=== PATIENT | female | born 1955 | race Caucasian/White ===

== ENCOUNTER 2017-11-29 08:07 | Inpatient (IN) ==
--- NOTE | 2017-11-29 08:59 | XR ---
EXAM DATE: 11/29/2017 8:23 AM EDT AGE/SEX: 62 years / Female INDICATIONS: . Cough and short of breath CLINICAL DATA: This is the patient's initial encounter. Patient reports that signs and symptoms have been present for 2 days and indicates a pain score of Nonresponsive. MEDICAL/SURGICAL HISTORY: Stroke. Craniotomy. PEG tube COMPARISON: POI, CT CHEST W/ CONTRAST, 03/10/2017. . FINDINGS: PA and lateral views of the chest demonstrate the lungs to be symmetrically aerated without evidence of mass, infiltrate or effusion. The cardiomediastinal contours are unremarkable. Osseous structures are intact. CONCLUSION: 1. No acute cardiopulmonary disease. Electronically signed by: Juan José Godinez MD 11/29/2017 8:58 AM EDT
[2017-11-29 09:16] LABS: Baso # (Auto) 0.1 th/mm3 (0.0-0.2); Baso % (Auto) 0.4 % (0.0-2.0); Eos # (Auto) 0.1 th/mm3 (0.0-0.4); Eos % (Auto) 0.6 % (0.0-4.0); Hematocrit 38.5 % (35.0-46.0); Hemoglobin 12.7 gm/dL (11.6-15.3); Lymph # (Auto) 1.7 th/mm3 (1.0-4.8); Lymph % (Auto) 11.7 % (9.0-44.0); Mean Corpuscular Hemoglobin 30.5 pg (27.0-34.0); Mean Corpuscular Volume 92.4 fL (80.0-100.0); Mean Platelet Volume 7.6 fL (7.0-11.0); Mono # (Auto) 0.9 th/mm3 (0.0-0.9); Mono % (Auto) 6.4 % (0.0-8.0); Neut # (Auto) 11.8 th/mm3 (1.8-7.7); Neut % (Auto) 80.9 % (16.0-70.0); Platelet Count 464 th/mm3 (150-450); Red Blood Count 4.16 mil/mm3 (4.00-5.30); Red Cell Distribution Width 13.8 % (11.6-17.2); White Blood Count 14.6 th/mm3 (4.0-11.0)
[2017-11-29 09:30] LABS: Alanine Aminotransferase 89 U/L (10-53)
[2017-11-29 09:34] LABS: Alkaline Phosphatase 141 U/L (45-117); Total Protein 7.9 g/dL (6.4-8.2)
[2017-11-29 09:54] LABS: Albumin 3.5 g/dL (3.4-5.0); Anion Gap 10 meq/L (5-15); Aspartate Aminotransferase 62 U/L (15-37); Blood Urea Nitrogen 10 mg/dL (7-18); Calcium 9.4 mg/dL (8.5-10.1); Carbon Dioxide 25.1 meq/L (21.0-32.0); Chloride 98 meq/L (98-107); Glomerular Filtration Rate Greater Than 89 mL/min (>89); Glucose,Random 81 mg/dL (74-106); Sodium 133 meq/L (136-145)
[2017-11-29 09:55] LABS: Potassium 4.6 meq/L (3.5-5.1)
[2017-11-29 10:18] LABS: Amorphous Sediment,Urine Rare /hpf; Bacteria,Urine Moderate /hpf; Bilirubin,Urine Negative (Negative); Clarity,Urine Turbid (Clear); Color,Urine Yellow (Yellw/Straw); Glucose,Urine (UA) Negative (Negative); Leukocyte Esterase,Urine Large (Negative); Nitrite,Urine Negative (Negative); Specific Gravity,Urine 1.009 (1.002-1.035); Squamous Epithelial Cell,Urine 36 /hpf (0-5); Transitional Epi Cells,Urine 5 /hpf
--- NOTE | 2017-11-29 10:56 | CT ---
EXAM DATE: 11/29/2017 10:19 AM EDT AGE/SEX: 62 years / Female INDICATIONS: Shortness of breath. CLINICAL DATA: This is the patient's initial encounter. Patient reports that signs and symptoms have been present for 1 day and indicates a pain score of Nonresponsive. MEDICAL/SURGICAL HISTORY: Lymphoma. Stroke. None. RADIATION DOSE: 6.87 CTDI (mGy) COMPARISON: POI, CT CHEST W/ CONTRAST, 03/10/2017. . TECHNIQUE: Volumetric scanning was performed using a multi-row detector CT scanner during bolus infu jeyson of 70 ml Omnipaque 350 (iohexol) nonionic water-soluble contrast as a single exam dose. The jessica a was post processed with a variety of visualization algorithms including full volume maximum intensi ty projection and sliding thin slab reformation. Using automated exposure control and adjustment of the mA and/or kV according to patient size, radiation dose was kept as low as reasonably achievable t o obtain optimal diagnostic quality images. DICOM format image data is available electronically for review and comparison. FINDINGS: Pulmonary Arteries: No filling defects are seen in the pulmonary arteries through the segmental vess els. The main pulmonary artery is normal in diameter. There is decreased opacification of the left p ulmonary veins in comparison to the right. This extends to the junction of the left atrium. Lung: Focal filling defect in the distal left mainstem bronchus with opacification of the central se gmental branches most prominently of the left lower lobe. This is new from prior examination. Minimal bibasilar groundglass opacities. Pleura: No effusion, significant pleural thickening or pneumothorax. Mediastinum: Heart is unremarkable without pericardial effusion. Left hilar prominence. No significa nt mediastinal adenopathy.. Osseous Structures: No abnormal focal lytic or blastic bony lesions. Other: Visulaized upper abdomen is unremarkable. CONCLUSION: 1. No CT evidence for pulmonary artery embolism. 2. Focal filling defect in the distal left mainstem bronchus with opacification of the central segme ntal branches most prominently of the left lower lobe. This is a new finding since previous exam. End obronchial mass should be excluded. 3. Decreased opacification of the left pulmonary veins extending to the junction of the left atrium. Although nonspecific, this may be related to reactive decreased perfusion of the left lung due to de creased aeration. 4. Minimal bibasilar atelectasis. Electronically signed by: Juan José Godinez MD 11/29/2017 10:55 AM EDT
[2017-11-29] MEDS ORDERED: Bisacodyl 10 MG Supp RECTAL PRN (12:09)
[2017-11-29] MEDS ORDERED: Acetaminophen 325 MG Tablet PO PRN (12:10)
--- NOTE | 2017-11-29 12:20 | P.HPIM ---
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 After her hospitalization the [place], patient was discharged to [facility] and was eventually weaned off of the ventilator which was decannulated on 08/2017. Patient presented to the ED today due to increased confusion and agitation per which began this morning. He reports that the patient was complaining of lower abdominal pain. He also mentions that the patient has had nasal congestion, shortness of breath, and a cough for the past 2 days. He has tried [id number] decongestant with no improvement. Of note, the also mentions that the patient was previously on trazodone which made her very lethargic and he started to wean her slowly off of it she has not had any trazodone for the past 4 days. Patient at baseline is minimally verbal but according to her she occasionally will speak a word to him. However he does state that she always understands what he asks her, and is able to answer with a nod or an occasional yes or no. Patient uses only the PEG for feeds due to dysphagia. She requires full assistance with all ADL's, at her baseline she usually is in bed or sitting up in the recliner for a few hours a day. Patient required mechanical ventilation after her IC hemorrhage and is s/ p trach by Dr. Pearson and PEG placement for dysphagia Patient denies recent illness , chills, fever, CP. Other PMHx, Hypertension on lisinopril and metoprolol which her has held due to low blood pressures at home, and GERD. Former Smoker. No previous Hx of COPD, she does not require home O2. - Diagnosis (1) Altered mental status (2) Lung mass (3) Acute UTI (4) Hypoxia (5) H/O craniotomy (6) History of intracranial hemorrhage Review of Systems All other systems reviewed negative except as stated in HPI PMFSH - History History Provided By: Family Member (), Health Benefits Specialist / EMT - Medical History Medical History: Medical History (Last Reviewed 10/22/18 @ 13:46 by Shari Lyon MD) Bone flap displacement Lymphoma CVA (cerebrovascular accident) - Tobacco History Tobacco Use In Past 30 Days: No Smoking Status: Current every day smoker Tobacco Type: Cigarettes - Alcohol History How Often Do You Have a Drink Containing Alcohol: Never - Substance Use History Substance History: No History of Abuse - Travel History Recent Travel Out of the Country Within the Last 8 Weeks: No - Immunization History Tetanus Immunization: Unsure Medications and Allergies Active Medications: Active Medications Acetaminophen (Tylenol) 650 mg PO Q4H PRN PRN Reason: Temp > 100.4 Al Hydroxide/Mg Hydroxide (Milk Of Magnesia Liq) 30 ml PO Q12H PRN PRN Reason: Mild Constipation Bisacodyl (Dulcolax Supp) 10 mg RECTAL DAILY PRN PRN Reason: SEVERE CONSITIPATION Ceftriaxone Sodium 1,000 mg/ (Sodium Chloride) 100 mls @ 200 mls/hr IV.SIG Q24H JUANITA Sodium Chloride (Ns Inj) 1,000 mls @ 125 mls/hr IV.CONT .Q8H JUANITA Lactulose (Lactulose Liq) 30 ml PO DAILY PRN PRN Reason: SEVERE CONSITIPATION Ondansetron HCl (Zofran Inj) 4 mg IV.PUSH Q6H PRN PRN Reason: NAUSEA OR VOMITING Senna/Docusate Sodium (Maral-Colace) 1 tab PO BID JUANITA Sennosides (Senokot) 17.2 mg PO Q12H PRN PRN Reason: Moderate Constipation Sodium Chloride (Ns Flush) 2 ml IV.FLUSH UNSCH PRN PRN Reason: FLUSH AFTER USING IV ACCESS Last Admin: 11/29/17 11:15 Dose: 2 ml Allergies Allergy/AdvReac Type Severity Reaction Status Date / Time No Known Allergies Allergy Verified 11/29/17 12:39 Home Medications Medication Instructions Recorded Confirmed Type amantadine HCl 150 mg PO BID 11/29/17 11/29/17 History cyanocobalamin (vitamin B-12) 1,000 mcg PO DAILY 11/29/17 11/29/17 History famotidine 20 mg PO DAILY 11/29/17 11/29/17 History modafinil 100 mg PO DAILY 11/29/17 11/29/17 History Exam Vital signs: Vital Signs 11/29/17 08:24 11/29/17 08:29 11/29/17 09:43 Temperature 98.2 F Pulse Rate 77 84 Respiratory Rate 17 18 Blood Pressure 117/88 128/75 Pulse Oximetry 94 L 95 94 L 11/29/17 12:00 Temperature Pulse Rate 84 Respiratory Rate 18 Blood Pressure 113/58 L Pulse Oximetry Intake & Output 11/28/17 11/29/17 11/29/17 18:59 06:59 18:59 Intake Total 100 / 100 Balance 100 / 100 Weight 54.431 kg Intake: IV 100 / 100 Rocephin Inj 1,000 MG In NS Inj 100 / 100 100 ML @ 200 mls/hr IV.SIG ONCE ONE Rx#:[id number] Narrative: GENERAL: Thin female, in no acute distress, lying comfortably in bed with nasal cannula in place SKIN: Warm and dry. HEAD: Normocephalic. Well-healed craniotomy scar on R scalp. EYES: No scleral icterus. No injection or drainage. NECK: Supple, trachea midline. No JVD or lymphadenopathy. CARDIOVASCULAR: Regular rate and rhythm without murmurs, gallops, or rubs. RESPIRATORY: Breath sounds equal bilaterally. No accessory muscle use. GASTROINTESTINAL: Abdomen soft, non-tender, nondistended. PEG in place with no drainage or erythema. MUSCULOSKELETAL: No cyanosis, or edema. BACK: Nontender without obvious deformity. No CVA tenderness. NEURO: AAO x1, right arm contracted, bilateral upper extremity motor system 3/5 , bilateral lower extremity motor system 3/5, right foot drop noted. Patient follows command and does grunt/attempts to verbalize but is difficult to understand. Results - Labs CBC & Chem 7: 11/29/17 08:52 11/29/17 08:52 Labs: Short CBC 11/29/17 Range/Units 08:52 WBC 14.6 H (4.0-11.0) th/mm3 Hgb 12.7 (11.6-15.3) gm/dL Hct 38.5 (35.0-46.0) % Plt Count 464 H (150-450) th/mm3 BMP 11/29/17 08:52 Sodium 133 L Potassium 4.6 Chloride 98 Carbon Dioxide 25.1 BUN 10 Creatinine 0.41 L Calcium 9.4 Cardiac Enzymes 11/29/17 Range/Units 08:52 Troponin I Less than 0.02 L (0.02-0.05) ng/mL Liver Function 11/29/17 Range/Units 08:52 Total Bilirubin 0.4 (0.2-1.0) mg/dL AST 62 H (15-37) U/L ALT 89 H (10-53) U/L Alkaline Phosphatase 141 H (45-117) U/L Albumin 3.5 (3.4-5.0) g/dL Urine 11/29/17 Range/Units 09:40 Urine Color Yellow (Yellw/Straw) Urine Clarity Turbid H (Clear) Urine pH 6.0 (5.0-8.5) Ur Specific [place] 1.009 (1.002-1.035) Urine Protein Negative (Neg-Trace) mg/dL Urine Glucose (UA) Negative (Negative) mg/dL - Imaging Impressions Chest X-Ray 11/29/17 08:23 CONCLUSION: 1. No acute cardiopulmonary disease. Chest CTA 11/29/17 10:08 CONCLUSION: 1. No CT evidence for pulmonary artery embolism. 2. Focal filling defect in the distal left mainstem bronchus with opacification of the central segmental branches most prominently of the left lower lobe. This is a new finding since previous exam. Endobronchial mass should be excluded. 3. Decreased opacification of the left pulmonary veins extending to the junction of the left atrium. Although nonspecific, this may be related to reactive decreased perfusion of the left lung due to decreased aeration. 4. Minimal bibasilar atelectasis. Caprini VTE Risk Assessment Caprini VTE Risk Assessment: Moderate/High Risk (score >= 2) Caprini Risk Assessment Model: Point Value = 1 Point Value = 2 Point Value = 3 Point Value = 5 Age 41-60 Minor surgery BMI > 25 kg/m2 Swollen legs Varicose veins or History of unexplained or recurrent spontaneous Oral contraceptives or hormone replacement Sepsis (< 1 month) Serious lung disease, including pneumonia (< 1 month) Abnormal pulmonary function Acute myocardial infarction Congestive heart failure (< 1 month) History of inflammatory bowel disease Medical patient at bed rest Age 61-74 Arthroscopic surgery Major open surgery (> 45 min) Laparoscopic surgery (> 45 min) Malignancy Confined to bed (> 72 hours) Immobilizing plaster cast Central venous access Age >= 75 History of VTE Family history of VTE Factor V Leiden Prothrombin [id number] Lupus anticoagulant Anticardiolipin antibodies Elevated serum homocysteine Heparin-induced thrombocytopenia Other congenital or acquired thrombophilia Stroke (< 1 month) Elective arthroplasty Hip, pelvis, or leg fracture Acute spinal cord injury (< 1 month) Prophylaxis Regimen: Total Risk Factor Score Risk Level Prophylaxis Regimen 0-1 Low Early ambulation 2 Moderate Order ONE of the following: *Sequential Compression Device (SCD) *Heparin 5000 units SQ BID 3-4 Higher Order ONE of the following medications: *Heparin 5000 units SQ TID *Enoxaparin/Lovenox 40 mg SQ daily (WT < 150 kg, CrCl > 30 mL/min) *Enoxaparin/Lovenox 30 mg SQ daily (WT < 150 kg, CrCl > 10-29 mL/min) *Enoxaparin/Lovenox 30 mg SQ BID (WT < 150 kg, CrCl > 30 mL/min) AND/OR *Sequential Compression Device (SCD) 5 or more Highest Order ONE of the following medications: *Heparin 5000 units SQ TID (Preferred with Epidurals) *Enoxaparin/Lovenox 40 mg SQ daily (WT < 150 kg, CrCl > 30 mL/min) *Enoxaparin/Lovenox 30 mg SQ daily (WT < 150 kg, CrCl > 10-29 mL/min) *Enoxaparin/Lovenox 30 mg SQ BID (WT < 150 kg, CrCl > 30 mL/min) AND *Sequential Compression Device (SCD) Assessment and Plan - Assessment (1) Altered mental status Code(s): R41.82 - Altered mental status, unspecified Status: Acute (2) Lung mass Code(s): R91.8 - Other nonspecific abnormal finding of lung field Status: Acute (3) Acute UTI Code(s): N39.0 - Urinary tract infection, site not specified Status: Acute (4) Hypoxia Code(s): R09.02 - Hypoxemia Status: Acute (5) H/O craniotomy Code(s): Z98.890 - Other specified postprocedural states Status: Chronic (6) History of intracranial hemorrhage Code(s): Z86.79 - Personal history of other diseases of the circulatory system Status: Chronic - Plan This is a 62-year-old CF with 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 Patient is being admitted for IP mgmt of AMS with agitation, UTI, and Hypoxia requiring NC. Per CT Chest, focal filling defect in the distal left mainstem bronchus with opacification of the central segmental branches most prominently of the left lower lobe, endobronchial mass should be excluded. Pulmonary has been consulted to assist with management, HD #1 1. Hypoxia/?Pneumonia versus Endobronchial Mass Patient on 2L NC (not on home O2), goal of O2>92% Neg CXR, Neg Flu CT Chest with opacification of the central segmental branches most prominent in the left lower lung, cannot exclude endobronchial mass Pulmonology consulted and appreciate assistance with management Will place NPO at midnight for bronchoscopy in AM per Pulm recommendations Started on Ceftriaxone IV and Azithromycin IV Follow-up S. pneumo antigen and mycoplasma Incentive spirometer ordered to assist with bibasilar atelectasis 2. Leukocytosis Likely secondary to infection (UTI and possible pneumonia) F/U blood Cx Continue to monitor, F/U CRP 3. UTI UA + many WBC's, large LE, and +bacteria Started on Ceftriaxone IV Q24hrs Follow-up Urine Cx for sensitivities 4. Elevated LFT's Possible stress reaction secondary to infection Will continue to monitor Will avoid hepatotoxic meds Will obtain Hepatitis panel 5. AMS, due to UTI and possible PNA Per patient is closer to her baseline now since leaving ED He reports that he thinks that her weaning off of the trazodone and now being completely out of it for the last 4 days has caused her increased agitation and confusion We will not resume trazodone unless needed Patient's UTI and possible pneumonia also contributing Will continue to monitor Acetaminophen level negative on admission, Neg UDS, Neg Ammonia 6. Hx of Subdural Hematoma and intraparenchymal hemorrhage, status post decompressive craniotomy Patient is known to Dr. Campbell, per 's request neurosurgery has been consulted Appreciate assistance with management CT Head: Prior right-sided temporoparietal craniectomy. Mild diffuse ventriculomegaly slightly out of proportion to degree of atrophy. Clinical correlation for normal pressure hydrocephalus is recommended. Limited evaluation for acute hemorrhage due to recent contrast administration. However, there is no evidence for significant intra or extra-axial blood products. 7. Hx of PEG Will consult dietary to assist with managing tube feeds Per patient uses Osteolite at home, 300mls/4x daily 8. Hx of CVA Noted, residual right sided weakness Will consult PT to assist with care, patient was receiving PT at home Cont. home Baclofen, Amantadine, and Modafinil 9. Hx of Hypertension Blood pressure stable reports that he has not been giving her home meds of Lisinopril and Metoprolol due to low BP's Will resume if needed 10. GERD Cont. Famotidine 11. DVT PPX: SCD's 12. Dispo: cont. ABX, NPO at midnight for Bronchoscopy, appreciate neurology and neurosurgery assistance with management Code Status: full Discussed Condition With: Patient, RN,
--- NOTE | 2017-11-29 13:13 | ED ---
HPI General Chief complaint: Respiratory Symptoms Stated complaint: SOB Time Seen by Provider: 11/29/17 08:10 Source: patient and EMS Mode of arrival: EMS History of Present Illness HPI narrative: Patient is a 62-year-old female, past medical history significant for recent intracranial hemorrhage status post craniotomy and ischemic stroke, discharged from rehab approximately 2 weeks ago, who presents with complaint of productive cough over the last several days. Per EMS her has been giving her Robitussin without any relief. No fever. Patient denies chest pain, dyspnea, abdominal pain. Patient is a poor historian. The arrived much later and stated that she seems more fatigued than normal with intermittent confusion. Onset (ago): day(s) Location: chest Radiation: non-radiation Severity: moderate Pain Consistency: constant Relieving factors: none Exacerbating factors: none Associated symptoms: Reports cough Related Data Home Medications Medication Instructions Recorded Confirmed amantadine HCl 150 mg PO BID 11/29/17 11/29/17 cyanocobalamin (vitamin B-12) 1,000 mcg PO DAILY 11/29/17 11/29/17 famotidine 20 mg PO DAILY 11/29/17 11/29/17 modafinil 100 mg PO DAILY 11/29/17 11/29/17 Allergies Allergy/AdvReac Type Severity Reaction Status Date / Time No Known Allergies Allergy Verified 11/29/17 12:39 Review of Systems ROS: all other systems reviewed are negative [facility] Medical History Medical History Bone flap displacement (Acute) Lymphoma (Acute) CVA (cerebrovascular accident) (Acute) Social History Social History Substance History: No History of Abuse Smoking Status: Current every day smoker Tobacco Type: Cigarettes How Often Do You Have a Drink Containing Alcohol: Never Recent Out of Country Travel within the Last 8 Weeks: No Immunization History Tetanus Immunization: Unsure Exam Narrative Exam Narrative: GENERAL: Chronically ill-appearing 62-year-old female in no acute distress SKIN: Focused skin assessment warm/dry. No rashes. No decubitus ulcers. She has previous incision site on right temporal region that is without erythema or drainage. HEAD: Missing bone flap. EYES: Pupils equal and round. No scleral icterus. No injection or drainage. ENT: No nasal bleeding or discharge. Mucous membranes pink and moist. NECK: Trachea midline. No JVD. CARDIOVASCULAR: Regular rate and rhythm. No murmur appreciated. Intact and equal peripheral pulses. RESPIRATORY: No accessory muscle use. Clear to auscultation. Breath sounds equal bilaterally. GASTROINTESTINAL: Abdomen soft, non-tender, nondistended. Hepatic and splenic margins not palpable. MUSCULOSKELETAL: No obvious deformities. No clubbing. No cyanosis. No edema. NEUROLOGICAL: Awake and alert. No obvious cranial nerve deficits. Able to move all 4 extremities. normal speech. PSYCHIATRIC: Appropriate mood and affect; insight and judgment normal. Course Initial Documented Vital Signs Temperature 98.2 F 11/29/17 08:24 Pulse Rate 77 11/29/17 08:24 Respiratory Rate 17 11/29/17 08:24 Blood Pressure 117/88 11/29/17 08:24 Pulse Oximetry 94 L 11/29/17 08:24 Last Documented Vital Signs Temperature 98.2 F 11/29/17 08:24 Pulse Rate 84 11/29/17 12:00 Respiratory Rate 18 11/29/17 12:00 Blood Pressure 113/58 L 11/29/17 12:00 Pulse Oximetry 94 L 11/29/17 09:43 Medical Decision Making MDM Narrative Medical decision making narrative: Patient is a 8-year-old female who presents with complaint of cough over the last several days and after her arrived stated that she been slightly confused. She has not had any recent trauma. She does have a new oxygen requirement here without any history of COPD. Chest x-ray was unremarkable. CTA was then obtained which revealed what appears to be an endobronchial mass but no PE nor infiltrate. Labs and urine revealed a UTI for which she has been given Rocephin. She has been admitted for further evaluation and management. Medical Screen Exam Complete: Yes Emergency Medical Condition: Yes Differential Diagnosis Differential Diagnosis: Differential diagnosis includes but is not limited to pneumonia, urinary tract infection, electrolyte abnormality. Medical Records Medical records reviewed: Yes I reviewed the patient's medical records. Lab Data Lab results reviewed: Yes I reviewed the patient's lab results. Result diagrams: 11/29/17 08:52 11/29/17 08:52 Lab Results 11/29/17 11/29/17 11/29/17 Range/Units 08:52 08:52 08:52 WBC 14.6 H (4.0-11.0) th/mm3 RBC 4.16 (4.00-5.30) mil/mm3 Hgb 12.7 (11.6-15.3) gm/dL Hct 38.5 (35.0-46.0) % MCV 92.4 (80.0-100.0) fL MCH 30.5 (27.0-34.0) pg MCHC 33.0 (32.0-36.0) % RDW 13.8 (11.6-17.2) % Plt Count 464 H (150-450) th/mm3 MPV 7.6 (7.0-11.0) fL Neut % (Auto) 80.9 H (16.0-70.0) % Lymph % (Auto) 11.7 (9.0-44.0) % [place] % (Auto) 6.4 (0.0-8.0) % Eos % (Auto) 0.6 (0.0-4.0) % Baso % (Auto) 0.4 (0.0-2.0) % Neut # (Auto) 11.8 H (1.8-7.7) th/mm3 Lymph # (Auto) 1.7 (1.0-4.8) th/mm3 [place] # (Auto) 0.9 (0.0-0.9) th/mm3 Eos # (Auto) 0.1 (0.0-0.4) th/mm3 Baso # (Auto) 0.1 (0.0-0.2) th/mm3 WBC Differential . Differential Comment Auto diff final APTT (24.3-30.1) sec Sodium 133 L (136-145) meq/L Potassium 4.6 (3.5-5.1) meq/L Chloride 98 (98-107) meq/L Carbon Dioxide 25.1 (21.0-32.0) meq/L Anion Gap 10 (5-15) meq/L BUN 10 (7-18) mg/dL Creatinine 0.41 L (0.50-1.00) mg/dL Estimated GFR Greater than 89 (>89) mL/min Random Glucose 81 (74-106) mg/dL Calcium 9.4 (8.5-10.1) mg/dL Total Bilirubin 0.4 (0.2-1.0) mg/dL AST 62 H (15-37) U/L ALT 89 H (10-53) U/L Alkaline Phosphatase 141 H (45-117) U/L Ammonia (11-32) mcmol/L Troponin I Less than 0.02 L (0.02-0.05) ng/mL C-Reactive Protein (0.00-0.30) mg/dL B-Natriuretic Peptide 14 (0-100) pg/mL Total Protein 7.9 (6.4-8.2) g/dL Albumin 3.5 (3.4-5.0) g/dL Urine Color (Yellw/Straw) Urine Clarity (Clear) Urine pH (5.0-8.5) Ur Specific [place] (1.002-1.035) Urine Protein (Neg-Trace) mg/dL Urine Glucose (UA) (Negative) mg/dL Urine Ketones (Negative) mg/dL Urine Occult Blood (Negative) Urine Nitrate (Negative) Urine Bilirubin (Negative) Urine Urobilinogen (Less than 2) mg/dL Ur Leukocyte Esterase (Negative) Urine RBC (0-3) /hpf Urine WBC (0-5) /hpf Urine WBC Clumps (None) Ur Squamous Epith Cells (0-5) /hpf Ur Transition Epith Cell (None) /hpf Amorphous Sediment (None) /hpf Urine Bacteria (None) /hpf Urine Yeast (None) /hpf Ur Yeast w Hyphae (None) /hpf Micro UA Comment Ur Microscopic Review Urine Culture Comments Acetaminophen (10.0-30.0) mcg/mL 11/29/17 11/29/17 11/29/17 Range/Units 08:52 08:52 09:40 WBC (4.0-11.0) th/mm3 RBC (4.00-5.30) mil/mm3 Hgb (11.6-15.3) gm/dL Hct (35.0-46.0) % MCV (80.0-100.0) fL MCH (27.0-34.0) pg MCHC (32.0-36.0) % RDW (11.6-17.2) % Plt Count (150-450) th/mm3 MPV (7.0-11.0) fL Neut % (Auto) (16.0-70.0) % Lymph % (Auto) (9.0-44.0) % [place] % (Auto) (0.0-8.0) % Eos % (Auto) (0.0-4.0) % Baso % (Auto) (0.0-2.0) % Neut # (Auto) (1.8-7.7) th/mm3 Lymph # (Auto) (1.0-4.8) th/mm3 [place] # (Auto) (0.0-0.9) th/mm3 Eos # (Auto) (0.0-0.4) th/mm3 Baso # (Auto) (0.0-0.2) th/mm3 WBC Differential Differential Comment APTT (24.3-30.1) sec Sodium (136-145) meq/L Potassium (3.5-5.1) meq/L Chloride (98-107) meq/L Carbon Dioxide (21.0-32.0) meq/L Anion Gap (5-15) meq/L BUN (7-18) mg/dL Creatinine (0.50-1.00) mg/dL Estimated GFR (>89) mL/min Random Glucose (74-106) mg/dL Calcium (8.5-10.1) mg/dL Total Bilirubin (0.2-1.0) mg/dL AST (15-37) U/L ALT (10-53) U/L Alkaline Phosphatase (45-117) U/L Ammonia (11-32) mcmol/L Troponin I (0.02-0.05) ng/mL C-Reactive Protein 0.88 H (0.00-0.30) mg/dL B-Natriuretic Peptide (0-100) pg/mL Total Protein (6.4-8.2) g/dL Albumin (3.4-5.0) g/dL Urine Color Yellow (Yellw/Straw) Urine Clarity Turbid H (Clear) Urine pH 6.0 (5.0-8.5) Ur Specific [place] 1.009 (1.002-1.035) Urine Protein Negative (Neg-Trace) mg/dL Urine Glucose (UA) Negative (Negative) mg/dL Urine Ketones Negative (Negative) mg/dL Urine Occult Blood Small H (Negative) Urine Nitrate Negative (Negative) Urine Bilirubin Negative (Negative) Urine Urobilinogen Less than 2 (Less than 2) mg/dL Ur Leukocyte Esterase Large H (Negative) Urine RBC 47 H (0-3) /hpf Urine WBC (0-5) /hpf Urine WBC Clumps Many H (None) Ur Squamous Epith Cells 36 (0-5) /hpf Ur Transition Epith Cell 5 (None) /hpf Amorphous Sediment Rare H (None) /hpf Urine Bacteria Moderate H (None) /hpf Urine Yeast Many H (None) /hpf Ur Yeast w Hyphae Occasional H (None) /hpf Micro UA Comment Cath-culture ind Ur Microscopic Review Not Reportable Urine Culture Comments Cath-cult indicated Acetaminophen Less than 2.0 L (10.0-30.0) mcg/mL 11/29/17 11/29/17 Range/Units 12:20 12:20 WBC (4.0-11.0) th/mm3 RBC (4.00-5.30) mil/mm3 Hgb (11.6-15.3) gm/dL Hct (35.0-46.0) % MCV (80.0-100.0) fL MCH (27.0-34.0) pg MCHC (32.0-36.0) % RDW (11.6-17.2) % Plt Count (150-450) th/mm3 MPV (7.0-11.0) fL Neut % (Auto) (16.0-70.0) % Lymph % (Auto) (9.0-44.0) % [place] % (Auto) (0.0-8.0) % Eos % (Auto) (0.0-4.0) % Baso % (Auto) (0.0-2.0) % Neut # (Auto) (1.8-7.7) th/mm3 Lymph # (Auto) (1.0-4.8) th/mm3 [place] # (Auto) (0.0-0.9) th/mm3 Eos # (Auto) (0.0-0.4) th/mm3 Baso # (Auto) (0.0-0.2) th/mm3 WBC Differential Differential Comment APTT 25.0 (24.3-30.1) sec Sodium (136-145) meq/L Potassium (3.5-5.1) meq/L Chloride (98-107) meq/L Carbon Dioxide (21.0-32.0) meq/L Anion Gap (5-15) meq/L BUN (7-18) mg/dL Creatinine (0.50-1.00) mg/dL Estimated GFR (>89) mL/min Random Glucose (74-106) mg/dL Calcium (8.5-10.1) mg/dL Total Bilirubin (0.2-1.0) mg/dL AST (15-37) U/L ALT (10-53) U/L Alkaline Phosphatase (45-117) U/L Ammonia 19 (11-32) mcmol/L Troponin I (0.02-0.05) ng/mL C-Reactive Protein (0.00-0.30) mg/dL B-Natriuretic Peptide (0-100) pg/mL Total Protein (6.4-8.2) g/dL Albumin (3.4-5.0) g/dL Urine Color (Yellw/Straw) Urine Clarity (Clear) Urine pH (5.0-8.5) Ur Specific [place] (1.002-1.035) Urine Protein (Neg-Trace) mg/dL Urine Glucose (UA) (Negative) mg/dL Urine Ketones (Negative) mg/dL Urine Occult Blood (Negative) Urine Nitrate (Negative) Urine Bilirubin (Negative) Urine Urobilinogen (Less than 2) mg/dL Ur Leukocyte Esterase (Negative) Urine RBC (0-3) /hpf Urine WBC (0-5) /hpf Urine WBC Clumps (None) Ur Squamous Epith Cells (0-5) /hpf Ur Transition Epith Cell (None) /hpf Amorphous Sediment (None) /hpf Urine Bacteria (None) /hpf Urine Yeast (None) /hpf Ur Yeast w Hyphae (None) /hpf Micro UA Comment Ur Microscopic Review Urine Culture Comments Acetaminophen (10.0-30.0) mcg/mL Imaging Data Attestation: I personally reviewed and interpreted this imaging study as follows : Radiologist's impression: Head CT 11/29/17 00:00 CONCLUSION: 1. Prior right-sided temporoparietal craniectomy.. 2. Mild diffuse ventriculomegaly slightly out of proportion to degree of atrophy. Clinical correlation for normal pressure hydrocephalus is recommended. 3. Limited evaluation for acute hemorrhage due to recent contrast administration. However, there is no evidence for significant intra or extra- axial blood products. Chest X-Ray 11/29/17 08:23 CONCLUSION: 1. No acute cardiopulmonary disease. Chest CTA 11/29/17 10:08 CONCLUSION: 1. No CT evidence for pulmonary artery embolism. 2. Focal filling defect in the distal left mainstem bronchus with opacification of the central segmental branches most prominently of the left lower lobe. This is a new finding since previous exam. Endobronchial mass should be excluded. 3. Decreased opacification of the left pulmonary veins extending to the junction of the left atrium. Although nonspecific, this may be related to reactive decreased perfusion of the left lung due to decreased aeration. 4. Minimal bibasilar atelectasis. ECG Data EKG Prior to Arrival: No Attestation: I personally reviewed and interpreted this ECG as follows: (Sinus rhythm at a rate of [address] or T wave changes.) Discharge Plan Physicians Team ED Provider: Shari Lyon Primary Care Provider: UNKNOWN, Attending Provider: Maggie Quinn Other Providers: Karina Espinoza Rxs /Orders / Referrals /Forms Prescriptions: No Action amantadine HCl 50 mg/5 mL Solution 150 mg PO BID RF: 0 famotidine 20 mg Tablet 20 mg PO DAILY RF: 0 modafinil 100 mg Tablet 100 mg PO DAILY RF: 0 cyanocobalamin (vitamin B-12) 1,000 mcg/15 mL Liquid 1,000 mcg PO DAILY RF: 0 Discharge Interventions Interventions: ED Discharge Assessment Last Done: 11/29/17 12:59 Vital Signs Last Done: 11/29/17 12:00 Status ED Status: Left Department Discharge Information Discharge Date/Time: 11/29/17 13:00
--- NOTE | 2017-11-29 13:16 | CT ---
EXAM DATE: 11/29/2017 12:11 PM EDT AGE/SEX: 62 years / Female INDICATIONS: Altered mental status. CLINICAL DATA: This is the patient's initial encounter. Patient reports that signs and symptoms have been present for 1 day and indicates a pain score of Nonresponsive. MEDICAL/SURGICAL HISTORY: Cerebrovascular disease. Lymphoma. Bone flap displacement. None. RADIATION DOSE: 34.46 CTDI (mGy) COMPARISON: No prior exams available for comparison. TECHNIQUE: CT of the head without contrast. Using automated exposure control and adjustment of the mA and/or kV according to patient size, radiation dose was kept as low as reasonably achievable to ob tain optimal diagnostic quality images. DICOM format image data is available electronically for revi ew and comparison. FINDINGS: Cerebrum: Postsurgical features of prior right-sided temporoparietal craniectomy. Mild diffuse cereb ral atrophy. Mild diffuse ventriculomegaly slightly out of proportion to degree of atrophy. No midlin e shift. No gross acute hemorrhage or mass effect although evaluation is limited by recent contrast a dministration. Posterior Fossa: The cerebellum and brainstem are intact. The 4th ventricle is midline. The cerebe llopontine angle is unremarkable. Extracranial: The visualized portion of the orbits is intact. Skull: Right-sided temporoparietal craniectomy. CONCLUSION: 1. Prior right-sided temporoparietal craniectomy.. 2. Mild diffuse ventriculomegaly slightly out of proportion to degree of atrophy. Clinical correlati on for normal pressure hydrocephalus is recommended. 3. Limited evaluation for acute hemorrhage due to recent contrast administration. However, there is no evidence for significant intra or extra-axial blood products. Electronically signed by: Juan José Godinez MD 11/29/2017 1:15 PM EDT
[2017-11-29] MEDS: Sod Chloride 0.9% Inj 1,000 ML IV.CONT SCH ×2 (13:29→22:08)
[2017-11-29 14:00] LABS: Hepatitis A IgM Antibody Nonreactive (Nonreactive); Hepatitits B Surface Antigen Nonreactive (Nonreactive)
[2017-11-29] MEDS: Azithromycin Inj 500 MG in Sodium Chlor 0.9% Inj 250 ML IV.SIG SCH (14:17)
[2017-11-29 14:27] LABS: Amphetamine Screen,Urine Neg (Neg); Barbiturate Screen,Urine Neg (Neg); Cannabinoid Screen,Urine Neg (Neg); Cocaine Screen,Urine Neg (Neg); Opiate Screen,Urine Neg (Neg)
--- NOTE | 2017-11-29 14:28 | MB ---
cc: Karina Espinoza MD DATE: 11/29/2017 PULMONARY CONSULTATION HISTORY OF PRESENT ILLNESS: The patient is a 62-year-old female with a past medical history of squamous cell carcinoma of the mouth, lymphoma diagnosed in 2007 status post radiation treatment and chemotherapy, subdural hematoma with subfalcine herniation and intraparenchymal hemorrhage in August 2017, status post decompressive craniotomy. She had a long ICU course in September where she underwent IVC filter placement. In addition, the patient required mechanical ventilation and underwent a tracheostomy by Dr. Waters and a PEG tube placement. She was eventually discharged to [facility] where she was weaned off the ventilator and was decannulated in August. The patient still does not have a bone flap. She presented to [facility] ED with chest congestion, shortness of breath and a cough. The patient is minimally verbal and most of the history was obtained from reviewing medical records and with my discussion with the patient's . She is afebrile and is currently on 2 liter oxygen with a saturation of 98% and a blood pressure 130/58. There is no history of any fever, chills or night sweats. Also no history of chest pain, orthopnea, PND, or edema of lower extremities. The patient had a CT of the chest which showed no evidence of any pulmonary embolism; however, it showed a focal filling defect in the distal left main stem bronchus with opacification of the central segmental branches, most prominently of the left lower lobe. Also, there is decreased opacification of the left pulmonary veins extending to the junction of the left atrium and minimal bibasilar atelectasis. There is no history of any nausea, vomiting or abdominal pain. Pulmonary Medicine was consulted regarding abnormal CT chest. PAST MEDICAL HISTORY: Significant for subdural hematoma with subfalcine herniation and intraparenchymal hemorrhage in August. Status post decompressive craniotomy, hypertension, CVA, squamous cell carcinoma of the mouth, and lymphoma diagnosed in 2007, dysphagia status post PEG tube placement, depression, history of multiple falls, history of gastric ulcer. PAST SURGICAL HISTORY: 1. Status post decompressive craniotomy 2. IVC filter placement in 09/2017. 3. Previous tracheostomy and PEG tube placement in 09/2017. SOCIAL HISTORY: The patient quit smoking in August and used to smoke 8-10 cigarettes daily for 30+ years. In addition, she has history of ETOH use. ALLERGIES: NO KNOWN DRUG ALLERGIES. FAMILY HISTORY: Noncontributory to history of present illness. MEDICATIONS AT HOME: Include: 1. Pepcid. 2. Modafinil. 3. Vitamin B12. REVIEW OF SYSTEMS: As per HPI. Review of systems limited as the patient is nonverbal. PHYSICAL EXAMINATION: GENERAL: A 62-year-old female lying in bed, in no acute distress. VITAL SIGNS: Temperature 98.2, pulse of 87, blood pressure 130/58, saturation 98% on 2 liters. HEENT: Atraumatic, normocephalic. Pupils equal, round, reactive to light and accommodation. Extraocular muscles intact. Conjunctivae pink. Nonicteric sclerae. Oral mucosa within normal. No bone flap present in the parietal area. NECK: Supple. No JVD, adenopathy or thyromegaly. Trachea in the midline. CARDIOVASCULAR: Regular rate and rhythm. Normal S1, S2. No murmurs or gallops noted. PULMONARY: Bilateral equal air entry. No rales or wheezing. ABDOMEN: Soft, nontender. No distention. Positive bowel sounds. PEG tube in place. EXTREMITIES: No cyanosis, clubbing or edema. NEUROLOGIC: Minimally verbal. LABORATORY DATA: WBC 14.6, hemoglobin 12.7, hematocrit 38, platelet count 464. Sodium 133, potassium 4.6, chloride 98, CO2 25, BUN 10, creatinine 0.41. AST 62, ALT 89, alkaline phosphatase 141, total bilirubin 0.4, ammonia level 19. C-reactive protein 0.88. RADIOGRAPHIC STUDIES: CTA of the chest showed no evidence of pulmonary embolism; however, showed focal filling defect in the distal left main stem bronchus and decreased opacification, left upper pulmonary vein. IMPRESSION: 1. Respiratory insufficiency. 2. Filling defect in the left main stem bronchus. DIFFERENTIAL DIAGNOSES: 1. Endobronchial mass versus mucus secretions. 2. Bibasilar atelectasis. 3. Leukocytosis. 4. Elevated liver function tests. 5. Urinary tract infection. 6. History of subdural hematoma and intraparenchymal hemorrhage, status post decompressive craniotomy. 7. Previous inferior vena cava filter placement in August. 8. Chronic respiratory failure, status post tracheostomy which was decannulated in October. 9. Previous percutaneous endoscopic gastrostomy placement. 11. History of cerebrovascular accident. 12. Hypertension. RECOMMENDATIONS: 1. Continue with oxygen and maintain sats above 92%. 2. Placed on bronchodilators in the form of DuoNeb every 4 hours plus every 2 hours p.r.n. for shortness of breath. 3. Discussed CT chest findings with the patient's and advised to proceed with fiberoptic bronchoscopy with a possible biopsy. Need to rule out endobronchial lesion versus mucus plugs. He is agreeable. We will schedule patient for bronchoscopy tomorrow. 4. Place on broad spectrum antibiotics in the form of Rocephin and Zithromax and monitor for signs of infection, which include fever and WBC. 5. Followup on blood cultures. 6. Her nasal washing and screening for influenza is negative. 7. Monitor neuro status and aspiration precautions. 8. Continue other medical management per primary team Thank you for the consultation and allowing us to participate in this patient's care. MD NEHAL Carter/fito , 01:14 PM , 01:28 PM [email or web address]
--- NOTE | 2017-11-29 16:50 | ECG ---
Date Performed: 11/29/2017 Time Performed: 09:01:35 PTAGE: 62 years EKG: Sinus rhythm ANTEROSEPTAL MYOCARDIAL INFARCTION ABNORMAL ECG NO PREVIOUS TRACING DOCTOR: Umm Myers Interpretating Date/Time 11/29/2017 16:43:23
[2017-11-29] MEDS: MethylPREDNISolone Sod Succinate Inj 40 MG/ML Vial IV.PUSH SCH (17:44)
[2017-11-29] MEDS: Cetirizine 10 MG/10 ML UDC PO SCH (17:50)
[2017-11-29] MEDS: Baclofen 10 MG Tablet PO SCH ×2 (18:43→22:07)
[2017-11-29] MEDS: Famotidine 20 MG Tablet PO SCH (18:43)
[2017-11-29] MEDS: Amantadine Liq 100 MG/10 ML UDC PO SCH (22:07)
[2017-11-29] MEDS: guaiFENesin 600 MG ER Tablet PO SCH (22:07)
[2017-11-29] MEDS: Modafinil 200 MG Tablet PO SCH (22:07)
[2017-11-29] MEDS: Senna/Docusate Sodium 8.6/50 MG Tablet PO SCH (22:08)
[2017-11-30] MEDS: MethylPREDNISolone Sod Succinate Inj 40 MG/ML Vial IV.PUSH SCH ×3 (01:13→14:46)
[2017-11-30] MEDS: Baclofen 10 MG Tablet PO SCH ×6 (01:13→22:15)
[2017-11-30] MEDS: Sod Chloride 0.9% Inj 1,000 ML IV.CONT SCH ×2 (05:17→13:17)
[2017-11-30 06:43] LABS: Hematocrit 33.3 % (35.0-46.0); Hemoglobin 11.6 gm/dL (11.6-15.3); Lymph # (Auto) 0.6 th/mm3 (1.0-4.8); Lymph % (Auto) 4.1 % (9.0-44.0); Mean Corpuscular HGB Conc 34.8 % (32.0-36.0); Mean Corpuscular Hemoglobin 31.2 pg (27.0-34.0); Mean Corpuscular Volume 89.8 fL (80.0-100.0); Mean Platelet Volume 7.9 fL (7.0-11.0); Mono # (Auto) 0.6 th/mm3 (0.0-0.9); Mono % (Auto) 4.1 % (0.0-8.0); Neut # (Auto) 14.1 th/mm3 (1.8-7.7); Neut % (Auto) 91.8 % (16.0-70.0); Platelet Count 407 th/mm3 (150-450); Red Blood Count 3.71 mil/mm3 (4.00-5.30); Red Cell Distribution Width 13.9 % (11.6-17.2); White Blood Count 15.3 th/mm3 (4.0-11.0)
[2017-11-30 06:56] LABS: INR 1.1 Ratio; Prothrombin Time 10.7 sec (9.8-11.6)
[2017-11-30 07:12] LABS: Anion Gap 11 meq/L (5-15); Aspartate Aminotransferase 28 U/L (15-37); Blood Urea Nitrogen 7 mg/dL (7-18); Calcium 9.2 mg/dL (8.5-10.1); Carbon Dioxide 24.3 meq/L (21.0-32.0); Chloride 102 meq/L (98-107); Glomerular Filtration Rate Greater Than 89 mL/min (>89); Glucose,Random 117 mg/dL (74-106); Potassium 3.9 meq/L (3.5-5.1); Sodium 137 meq/L (136-145)
[2017-11-30 07:13] LABS: Alanine Aminotransferase 65 U/L (10-53)
[2017-11-30 07:15] LABS: Alkaline Phosphatase 142 U/L (45-117); Total Protein 7.4 g/dL (6.4-8.2)
[2017-11-30] MEDS: guaiFENesin 600 MG ER Tablet PO SCH ×2 (08:08→22:15)
[2017-11-30] MEDS: Senna/Docusate Sodium 8.6/50 MG Tablet PO SCH ×2 (08:08→22:15)
[2017-11-30] MEDS: Cetirizine 10 MG/10 ML UDC PO SCH (08:09)
[2017-11-30] MEDS: Amantadine Liq 100 MG/10 ML UDC PO SCH ×2 (08:09→22:15)
[2017-11-30] MEDS: Famotidine 20 MG Tablet PO SCH (08:09)
--- NOTE | 2017-11-30 09:29 | P.PNPL ---
Subjective Interval history: No events overnight. Patient is lying in bed in NAD. Afebrile. For Bronch today. Physical Exam Vital signs: Vital Signs 11/29/17 09:43 11/29/17 12:00 11/29/17 13:30 Temperature 98.1 F Pulse Rate 84 84 94 H Respiratory Rate 18 18 Blood Pressure 128/75 113/58 L 147/71 H Pulse Oximetry 94 L 96 11/29/17 16:00 11/29/17 17:38 11/29/17 20:00 Temperature 98.6 F 97.8 F Pulse Rate 105 H 87 93 H Respiratory Rate 20 16 Blood Pressure 160/74 H 158/75 H Pulse Oximetry 94 L 95 11/29/17 20:07 11/29/17 23:43 11/30/17 00:00 Temperature 98.4 F Pulse Rate 91 H 116 H 121 H Respiratory Rate 19 19 18 Blood Pressure 166/78 H Pulse Oximetry 97 94 L 11/30/17 04:00 11/30/17 04:14 11/30/17 07:57 Temperature 97.4 F L Pulse Rate 96 H 83 82 Respiratory Rate 18 19 16 Blood Pressure 148/66 H Pulse Oximetry 94 L 95 11/30/17 08:00 Temperature 98.8 F Pulse Rate 82 Respiratory Rate 20 Blood Pressure 120/60 Pulse Oximetry 100 Intake & Output 11/29/17 11/30/17 11/30/17 18:59 06:59 18:59 Intake Total 350 / 350 1999 Balance 350 / 350 1999 Weight 41.6 kg 41.9 kg Intake: IV 350 / 350 1999 NS Inj 1,000 ML @ 125 mls/hr IV 1999 .CONT .Q8H [facility] Rx#:[id number] Azithromycin Inj 500 MG In NS 250 / 250 Inj 250 ML @ 250 mls/hr IV.SIG Q24H [facility] Rx#:[id number] Rocephin Inj 1,000 MG In NS Inj 100 / 100 100 ML @ 200 mls/hr IV.SIG ONCE ONE Rx#:[id number] Other: # Voids 3 - Constitutional no acute distress - Routine HEENT Exam Head: Present: normocephalic Eye: Present: EOMI, PERRL, normal accommodation, conjunctivae pink ENT: Present: mucous membranes moist - Routine Neck Exam Present: supple, full ROM, trachea midline - Routine Respiratory Exam Present: CTA bilaterally - Routine Cardiovascular Exam Present: RRR, S1, S2 - Routine Abdominal Exam Present: soft, normoactive bowel sounds - Routine Extremities Exam Present: pulses intact - Routine Skin Exam Present: intact, dry - Routine Neurological Exam Present: altered mental status - Routine Psychiatric Exam Present: unable to assess Assessment and Plan - Plan 1. Respiratory insufficiency. 2. Filling defect in the left main stem bronchus. ddx: Endobronchial mass versus mucus secretions. 2. ? COPD, hx tobacco abuse 3. Leukocytosis. 4. Elevated liver function tests. 5. Urinary tract infection. 6. History of subdural hematoma and IPH status post decompressive craniotomy. 7. Previous IVC filter placement in August. 8. Chronic respiratory failure, status post tracheostomy decannulated in October. 9. s/p PEG tube placement 11. History CVA 12. Hypertension. Plan Continue with oxygen and maintain sats > 92%. Bronchodilators , solumederol 40mg Q6x 4 doses Aspiration precautions For bronch today Continue Rocephin and Zithromax,monitor for signs of infection( fever and WBC). Followup on blood cultures., Group A strep throat is negative Nasal washing screening for influenza is negative. Monitor neuro status and aspiration precautions. Continue other medical management per primary team
--- NOTE | 2017-11-30 11:08 | P.DIET ---
Nutritional Evaluation Type of nutrition evaluation: initial Nutrition consult regarding: Tube Feeding Nutrition screening: [facility] [place] (Assist with TF) Subjective Subjective Comments: Pt is minimally verbal. Has PEG for nutrition. Objective - Diagnosis UTI, Hypoxia - Objective Body Mass Index: 16.9 % IBW: 84 (IBW = 110#) Body Weight Used for Calculations: Actual (41.9 kg) Energy Needs - Lower Range (kCal/kg): 30 Energy Needs - Upper Range (kCal/kg): 35 Lower Limit kCal/kg (kCals): 1,257 Upper Limit kCal/kg (kCals): 1,467 Lower Limit Protein Factor (Grams per Kg): 1.2 Upper Limit Protein Factor (Grams per Kg): 1.5 Lower Protein Needs (Protein): 50 Upper Protein Needs (Protein): 63 Fluid Factor (ml/kg): 35 Estimated Fluid Needs (ml): 1,467 Dietitian Reviewed in Medical Record: Curent medications, Intake & Output, Labs , Medical history, Tube feeding Diet Order: NPO Objective Comments: 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 Pt's TF regimen is known to me from previous rehab admission. Pt receives Osmolite 330 ml bolus 4x/ day to provide 1399 kcals, 58.5 gms protein and 1111 mls of free water. Pt will need an additional 75 mls watre flush q 6 hrs to meet fluid needs. Bolus feeds can be given every 6 hours OR at Bkfst, lunch, dinner and hs. Recommendations: OSMOLITE 1.0 330 ml bolus q [address] following Dietitian to Monitor: Lab values, Intake & Output, Tube feeding tolerance, Weight change, Medical course
--- NOTE | 2017-11-30 13:45 | P.PN ---
Subjective Interval history: patient off the floor- went for bronchoscopy- f seen 3:15 pm back from bronchoscopy- findings- mucus plugs tolerated procedure well seen with at bedside poor expiratory effort baseline S/P CVA 08/2017- non ambulatoruy with right hemiparesis tube feeding dependent - Osmolyte 300 cc qid baseline with expressive aphasia Physical Exam Vital signs: Vital Signs 11/29/17 16:00 11/29/17 17:38 11/29/17 20:00 Temperature 98.6 F 97.8 F Pulse Rate 105 H 87 93 H Respiratory Rate 20 16 Blood Pressure 160/74 H 158/75 H Pulse Oximetry 94 L 95 11/29/17 20:07 11/29/17 23:43 11/30/17 00:00 Temperature 98.4 F Pulse Rate 91 H 116 H 121 H Respiratory Rate 19 19 18 Blood Pressure 166/78 H Pulse Oximetry 97 94 L 11/30/17 04:00 11/30/17 04:14 11/30/17 07:57 Temperature 97.4 F L Pulse Rate 96 H 83 82 Respiratory Rate 18 19 16 Blood Pressure 148/66 H Pulse Oximetry 94 L 95 11/30/17 08:00 Temperature 98.8 F Pulse Rate 90 Respiratory Rate 16 Blood Pressure 120/60 Pulse Oximetry 100 Intake & Output 11/29/17 11/30/17 11/30/17 18:59 06:59 18:59 Intake Total 350 / 350 1999 100 / 100 Balance 350 / 350 1999 100 / 100 Weight 41.6 kg 41.9 kg Intake: IV 350 / 350 1999 100 / 100 NS Inj 1,000 ML @ 125 mls/hr IV 1999 .CONT .Q8H [facility] Rx#:[id number] Azithromycin Inj 500 MG In NS 250 / 250 Inj 250 ML @ 250 mls/hr IV.SIG Q24H [facility] Rx#:[id number] Rocephin Inj 1,000 MG In NS Inj 100 / 100 100 / 100 100 ML @ 200 mls/hr IV.SIG Q24H [facility] Rx#:[id number] Other: # Voids 3 Narrative: GENERAL: Thin female, in no acute distress, lying comfortably in bed w SKIN: Warm and dry. HEAD: Normocephalic. Well-healed craniotomy scar on R scalp. EYES: No scleral icterus. No injection or drainage. NECK: Supple, trachea midline. No JVD or lymphadenopathy. well healed,closed tracheostomy scar CARDIOVASCULAR: Regular rate and rhythm without murmurs, gallops, or rubs. RESPIRATORY: + breath sounds, no rales, no wheezes No accessory muscle use. GASTROINTESTINAL: Abdomen soft, non-tender, nondistended. PEG in place with no drainage or erythema. MUSCULOSKELETAL: No cyanosis, or edema. BACK: Nontender without obvious deformity. No CVA tenderness. NEURO: AAO x1, right arm contracted, bilateral upper extremity motor system 3/5 , bilateral lower extremity motor system 3/5, right foot drop noted. pupils equal, mild facial asymmetry, stick out her tongue for me, gripped when hand held Patient follows command and does grunt/attempts to verbalize Results - Labs CBC & Chem 7: 11/30/17 05:50 11/30/17 05:50 Laboratory Results - last 24 hr 11/29/17 11/29/17 11/29/17 09:40 09:40 12:20 WBC RBC Hgb Hct MCV MCH MCHC RDW Plt Count MPV Neut % (Auto) Lymph % (Auto) [place] % (Auto) Eos % (Auto) Baso % (Auto) Neut # (Auto) Lymph # (Auto) [place] # (Auto) Eos # (Auto) Baso # (Auto) WBC Differential Differential Comment PT INR Sodium Potassium Chloride Carbon Dioxide Anion Gap BUN Creatinine Estimated GFR Random Glucose Calcium Total Bilirubin AST ALT Alkaline Phosphatase Total Protein Albumin Urine Color Yellow Urine Clarity Turbid H Urine pH 6.0 Ur Specific [place] 1.009 Urine Protein Negative Urine Glucose (UA) Negative Urine Ketones Negative Urine Occult Blood Small H Urine Nitrate Negative Urine Bilirubin Negative Urine Urobilinogen Less than 2 Ur Leukocyte Esterase Large H Urine RBC 47 H Urine WBC Urine WBC Clumps Many H Ur Squamous Epith Cells 36 Ur Transition Epith Cell 5 Amorphous Sediment Rare H Urine Bacteria Moderate H Urine Yeast Many H Ur Yeast w [place] Occasional H Micro UA Comment Cath-culture ind Urine Culture Comments Cath-cult indicated Urine Opiates Screen Neg Ur Barbiturates Screen Neg Ur Amphetamines Screen Neg U Benzodiazepines Scrn Neg Urine Cocaine Screen Neg U Cannabinoids Screen Neg Hepatitis A IgM Ab Nonreactive Hep Bs Antigen Nonreactive Hep B Core IgM Ab Nonreactive Hep C IgG Ab Nonreactive 10/23/18 10/23/18 10/23/18 05:50 05:50 05:50 WBC 15.3 H RBC 3.71 L Hgb 11.6 Hct 33.3 L MCV 89.8 MCH 31.2 MCHC 34.8 RDW 13.9 Plt Count 407 MPV 7.9 Neut % (Auto) 91.8 H Lymph % (Auto) 4.1 L [place] % (Auto) 4.1 Eos % (Auto) 0.0 Baso % (Auto) 0.0 Neut # (Auto) 14.1 H Lymph # (Auto) 0.6 L [place] # (Auto) 0.6 Eos # (Auto) 0.0 Baso # (Auto) 0.0 WBC Differential . Differential Comment Auto diff final PT 10.7 INR 1.1 Sodium 137 Potassium 3.9 Chloride 102 Carbon Dioxide 24.3 Anion Gap 11 BUN 7 Creatinine 0.37 L Estimated GFR Greater than 89 Random Glucose 117 H Calcium 9.2 Total Bilirubin 0.4 AST 28 ALT 65 H Alkaline Phosphatase 142 H Total Protein 7.4 Albumin 3.0 L Urine Color Urine Clarity Urine pH Ur Specific [place] Urine Protein Urine Glucose (UA) Urine Ketones Urine Occult Blood Urine Nitrate Urine Bilirubin Urine Urobilinogen Ur Leukocyte Esterase Urine RBC Urine WBC Urine WBC Clumps Ur Squamous Epith Cells Ur Transition Epith Cell Amorphous Sediment Urine Bacteria Urine Yeast Ur Yeast w [place]pha[place] Micro UA Comment Urine Culture Comments Urine Opiates Screen Ur Barbiturates Screen Ur Amphetamines Screen U Benzodiazepines Scrn Urine Cocaine Screen U Cannabinoids Screen Hepatitis A IgM Ab Hep Bs Antigen Hep B Core IgM Ab Hep C IgG Ab Microbiology 11/29/17 12:30 Throat Group A Streptococcus Screen/Cult - Preliminary No Beta Streptococci isolated at 24 hours 11/29/17 09:40 Catheterized Urine Urine Culture - Preliminary [place] albicans Group D Enterococcus 11/29/17 12:35 Blood - Peripheral Aerobic Blood Culture - Preliminary No growth in 1 day 11/29/17 12:35 Blood - Peripheral Anaerobic Blood Culture - Preliminary No growth in 1 day 11/29/17 12:20 Blood - Peripheral Aerobic Blood Culture - Preliminary No growth in 1 day 11/29/17 12:20 Blood - Peripheral Anaerobic Blood Culture - Preliminary No growth in 1 day 11/29/17 12:30 Throat Group A Streptococcus Screen ([facility]) - Final 11/29/17 11:30 Nasal Wash Influenza Types A,B Antigen - Final Negative for FLU A and B antigen Infection due to influenza A or B cannot be ruled out since the antigen present in the sample may be below the detection limit of the test. - Procedures 11/30- bronchoscopy Assessment and Plan - Assessment (1) Altered mental status Code(s): R41.82 - Altered mental status, unspecified Status: Acute (2) Lung mass Code(s): R91.8 - Other nonspecific abnormal finding of lung field Status: Acute (3) Acute UTI Code(s): N39.0 - Urinary tract infection, site not specified Status: Acute (4) Hypoxia Code(s): R09.02 - Hypoxemia Status: Acute (5) H/O craniotomy Code(s): Z98.890 - Other specified postprocedural states Status: Chronic (6) History of intracranial hemorrhage Code(s): Z86.79 - Personal history of other diseases of the circulatory system Status: Chronic - Plan This is a 62-year-old CF with 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 Patient is being admitted for IP mgmt of AMS with agitation, UTI, and Hypoxia requiring NC. Per CT Chest, focal filling defect in the distal left mainstem bronchus with opacification of the central segmental branches most prominently of the left lower lobe, endobronchial mass should be excluded. Pulmonary has been consulted to assist with management, HD #1 1. REspiratory Failure- secondary to Mucus plugs- s/p bronchoscopy 11/30 Patient on 2L NC (not on home O2), goal of O2>92% CT Chest with opacification of the central segmental branches most prominent in the left lower lung, cannot exclude endobronchial mass Reepat CXR post bronchoscopy Pulmonology - Dr. delatorre ff Started on Ceftriaxone IV and Azithromycin IV Follow-up S. pneumo antigen and mycoplasma Incentive spirometer ordered to assist with bibasilar atelectasis 2. Sepsis- source- pulmonary + uro Gram + sepsis bacteremia Leukocytosis Likely secondary to infection (UTI and possible pneumonia) F/U blood Cx Continue to monitor, F/U CRP DC Zithromax start IV Vancomycin q 12. continue on Ceftrixone for now get ID consult 3. UTI- Candiduria UA + many WBC's, large LE, and +bacteria Started on Ceftriaxone IV Q24hrs Follow-up Urine Cx for sensitivities Start Diflucan/PEG 4. Elevated LFT's Possible stress reaction secondary to infection Will continue to monitor Will avoid hepatotoxic meds Will obtain Hepatitis panel 5. AMS, due to UTI and possible PNA- MS near baseline Per patient is closer to her baseline now since leaving ED He reports that he thinks that her weaning off of the trazodone and now being completely out of it for the last 4 days has caused her increased agitation and confusion We will not resume trazodone unless needed Patient's UTI and possible pneumonia also contributing Will continue to monitor Acetaminophen level negative on admission, Neg UDS, Neg Ammonia 6. Hx of Subdural Hematoma and intraparenchymal hemorrhage, status post decompressive craniotomy with expressive aphasia and right hemiparesis Patient is known to Dr. Campbell, per 's request neurosurgery has been consulted Appreciate assistance with management CT Head: Prior right-sided temporoparietal craniectomy. Mild diffuse ventriculomegaly slightly out of proportion to degree of atrophy. Clinical correlation for normal pressure hydrocephalus is recommended. Limited evaluation for acute hemorrhage due to recent contrast administration. However, there is no evidence for significant intra or extra-axial blood products. 7. Hx of PEG Will consult dietary to assist with managing tube feeds- restart tube feedings Per patient uses Osteolite at home, 300mls/4x daily 8. Hx of CVA Noted, residual right sided weakness Will consult PT to assist with care, patient was receiving PT at home Cont. home Baclofen, Amantadine, and Modafinil 9. Hx of Hypertension Blood pressure stable reports that he has not been giving her home meds of Lisinopril and Metoprolol due to low BP's Will resume if needed 10. GERD Cont. Famotidine 11. DVT PPX: SCD's 12. Dispo: cont. CM consult for DC planning
[2017-11-30] MEDS: Azithromycin Inj 500 MG in Sodium Chlor 0.9% Inj 250 ML IV.SIG SCH (14:46)
--- NOTE | 2017-11-30 15:29 | XR ---
EXAM DATE: 11/30/2017 2:40 PM EDT AGE/SEX: 62 years / Female INDICATIONS: S/p bronchoscopy. CLINICAL DATA: This is the patient's initial encounter. Patient reports that signs and symptoms have been present for 2 days and indicates a pain score of Nonresponsive. MEDICAL/SURGICAL HISTORY: Cerebrovascular disease. Lymphoma. stroke Craniotomy. peg tube [place] [facility] [place]29/2017. . FINDINGS: There is mild prominence of the perivascular markings not present previously may represent mild pulmo nary edema without focal consolidation. CONCLUSION: Possible mild case of pulmonary edema not present previously. Electronically signed by: Liban Bergman MD 11/30/2017 3:27 PM EDT
[2017-11-30] MEDS ORDERED: Vancomycin Inj 1 GM/200 ML PIGGYBACK IV.SIG ONE (15:35)
[2017-11-30] MEDS ORDERED: Vancomycin Inj 1,000 MG in Sodium Chlor 0.9% Inj 250 ML IV.SIG ONE (17:00)
[2017-11-30] MEDS ORDERED: Vancomycin Consult Pharmacy OTHER PRN (17:27)
[2017-11-30] MEDS: Fluconazole 100 MG Tablet G-TUBE SCH (17:53)
[2017-11-30] MEDS: Modafinil 200 MG Tablet PO SCH (22:14)
[2017-12-01] MEDS: Baclofen 10 MG Tablet PO SCH ×6 (01:22→22:17)
[2017-12-01] MEDS ORDERED: Vancomycin Inj 1,000 MG in Sodium Chlor 0.9% Inj 250 ML IV.SIG SCH (05:00)
[2017-12-01] MEDS: Vancomycin Inj 750 MG in Sodium Chlor 0.9% Inj 250 ML IV.SIG SCH ×2 (06:37→18:24)
[2017-12-01] MEDS: Fluconazole 100 MG Tablet G-TUBE SCH (09:02)
[2017-12-01] MEDS: Senna/Docusate Sodium 8.6/50 MG Tablet PO SCH ×2 (09:02→22:16)
[2017-12-01] MEDS: Cetirizine 10 MG/10 ML UDC PO SCH (09:02)
[2017-12-01] MEDS: guaiFENesin 600 MG ER Tablet PO SCH ×2 (09:02→22:17)
[2017-12-01] MEDS: Famotidine 20 MG Tablet PO SCH (09:02)
[2017-12-01] MEDS: Amantadine Liq 100 MG/10 ML UDC PO SCH ×2 (09:02→22:16)
--- NOTE | 2017-12-01 09:02 | P.PNPL ---
Subjective Interval history: No events overnight on 1.5L oxygen. s/p bronch yesterday showed mucous plugs on left lung( EMMANUEL/LLL). Afebrile. Physical Exam Vital signs: Vital Signs 11/30/17 12:00 11/30/17 13:28 11/30/17 14:20 Temperature 98.0 F 97.8 F Pulse Rate 86 77 94 H Respiratory Rate 17 17 Blood Pressure 107/56 L 139/69 Pulse Oximetry 96 96 11/30/17 16:00 11/30/17 16:53 11/30/17 20:00 Temperature 98.3 F 98.7 F Pulse Rate 97 H 77 85 Respiratory Rate 20 18 16 Blood Pressure 131/63 123/73 Pulse Oximetry 97 98 11/30/17 20:03 11/30/17 23:59 12/01/17 00:00 Temperature 97.9 F Pulse Rate 83 88 82 Respiratory Rate 14 15 18 Blood Pressure 134/78 Pulse Oximetry 97 12/01/17 03:44 12/01/17 04:00 12/01/17 07:00 Temperature 98.0 F Pulse Rate 79 73 74 Respiratory Rate 14 18 12 Blood Pressure 127/76 Pulse Oximetry 97 12/01/17 07:40 Temperature Pulse Rate Respiratory Rate Blood Pressure Pulse Oximetry 99 Intake & Output 11/30/17 12/01/17 12/01/17 18:59 06:59 18:59 Intake Total 2600 / 2600 Output Total 600 / 600 Balance 2600 / 2600 -600 / -600 Weight 42.1 kg Intake: IV 2600 / 2600 NS Inj 1,000 ML @ 125 mls/hr IV 1999 / 1999 .CONT .Q8H [facility] Rx#:[id number] Azithromycin Inj 500 MG In NS 250 / 250 Inj 250 ML @ 250 mls/hr IV.SIG Q24H [facility] Rx#:[id number] Vancomycin Inj 1,000 MG In NS 250 / 250 Inj 250 ML @ 200 mls/hr IV.SIG ONCE ONE Rx#:[id number] Rocephin Inj 1,000 MG In NS Inj 100 / 100 100 ML @ 200 mls/hr IV.SIG Q24H [facility] Rx#:[id number] Oral 0 / 0 Output: Urine 600 / 600 Other: # Voids 1 # Incontinent Voids 2 # Bowel Movements 0 - Constitutional no acute distress - Routine HEENT Exam Head: Present: normocephalic, atraumatic Eye: Present: EOMI, PERRL, normal accommodation ENT: Present: mucous membranes moist - Routine Neck Exam Present: supple, full ROM, trachea midline - Routine Respiratory Exam Present: CTA bilaterally - Routine Cardiovascular Exam Present: RRR, S1, S2 - Routine Abdominal Exam Present: soft, normoactive bowel sounds - Routine Skin Exam Present: intact, dry - Routine Neurological Exam Present: altered mental status Assessment and Plan - Plan 1. Respiratory insufficiency. 2. Filling defect in the left main stem bronchus. 2nd mucous plugs 2. ? COPD, hx tobacco abuse 3. Leukocytosis. 4. Gram positive bacteremia 5. UTI 6. History of subdural hematoma and IPH status post decompressive craniotomy. 7. Previous IVC filter placement in August. 8. Chronic respiratory failure, status post tracheostomy decannulated in October. 9. s/p PEG tube placement 11. History CVA 12. Hypertension. Plan Continue with oxygen and maintain sats > 92%. Bronchodilators , s/p solumederol 40mg Q6x 4 doses Aspiration precautions s/p bronch with BAL 11/30 showed mucous plugs in trach EMMANUEL/LLL suctioned to clear, no evidence of endobronchial lesions Follow up on BAL 11/29 BC: GPC 2/4 bottles. Follow up on BC from 11/30 11/29 Urine cx: [place], enterococcus Continue abx, on Vanco, Rocephin,Zithromax and Diflucan,monitor for signs of infection( fever and WBC). Group A strep throat is negative Nasal washing screening for influenza is negative. Monitor neuro status Nutrition support - on bolus tube feeds (Osmolite) Continue treatment plan
[2017-12-01] MEDS: Azithromycin Inj 500 MG in Sodium Chlor 0.9% Inj 250 ML IV.SIG SCH (14:48)
--- NOTE | 2017-12-01 16:18 | P.PN ---
Subjective Interval history: Nursing denies any deterioration since last night. Patient's is at the bedside. Says she is much improved since admission, slightly less alert today than yesterday. Says that her breathing is better as well since yesterday. Physical Exam Vital signs: Vital Signs 11/30/17 16:53 11/30/17 20:00 11/30/17 20:03 Temperature 98.7 F Pulse Rate 77 85 83 Respiratory Rate 18 16 14 Blood Pressure 123/73 Pulse Oximetry 98 11/30/17 23:59 12/01/17 00:00 12/01/17 03:44 Temperature 97.9 F Pulse Rate 88 82 79 Respiratory Rate 15 18 14 Blood Pressure 134/78 Pulse Oximetry 97 12/01/17 04:00 12/01/17 07:00 12/01/17 07:40 Temperature 98.0 F Pulse Rate 73 74 Respiratory Rate 18 12 Blood Pressure 127/76 Pulse Oximetry 97 99 12/01/17 08:00 12/01/17 09:00 12/01/17 11:00 Temperature 98.4 F Pulse Rate 76 87 77 Respiratory Rate 20 12 Blood Pressure 161/71 H Pulse Oximetry 98 12/01/17 12:00 Temperature 98.3 F Pulse Rate 77 Respiratory Rate 19 Blood Pressure 123/60 Pulse Oximetry 98 Intake & Output 11/30/17 12/01/17 12/01/17 18:59 06:59 18:59 Intake Total 2600 / 2600 607.5 / 607.5 Output Total 600 / 600 Balance 2600 / 2600 -600 / -600 607.5 / 607.5 Weight 42.1 kg Intake: IV 2600 / 2600 607.5 / 607.5 NS Inj 1,000 ML @ 125 mls/hr IV 1999 / 1999 .CONT .Q8H [facility] Rx#:[id number] Azithromycin Inj 500 MG In NS 250 / 250 250 / 250 Inj 250 ML @ 250 mls/hr IV.SIG Q24H [facility] Rx#:[id number] Vancomycin Inj 1,000 MG In NS 250 / 250 Inj 250 ML @ 200 mls/hr IV.SIG ONCE ONE Rx#:[id number] Vancomycin Inj 750 MG In NS Inj 257.5 / 257.5 250 ML @ 250 mls/hr IV.SIG Q12H [facility] Rx#:[id number] Rocephin Inj 1,000 MG In NS Inj 100 / 100 100 / 100 100 ML @ 200 mls/hr IV.SIG Q24H REPLACED BY [facility] Rx#:[id number] Oral 0 / 0 Output: Urine 600 / 600 Other: # Voids 1 # Incontinent Voids 2 # Bowel Movements 0 Narrative: Patient is largely nonverbal with me Clear lungs bilaterally with unlabored breathing, on nasal cannula at this time Heart sounds regular rate rhythm Results - Labs CBC & Chem 7: 11/30/17 05:50 11/30/17 05:50 Microbiology 11/30/17 13:16 Bronchial - Left Lower Lobe Gram Stain - Final 11/30/17 13:16 Bronchial - Left Lower Lobe Bronchial Culture - Preliminary Staphylococcus aureus 11/29/17 12:30 Throat Group A Streptococcus Screen/Cult - Final No Beta Streptococci isolated. 11/29/17 12:35 Blood - Peripheral Aerobic Blood Culture - Preliminary Staphylococcus aureus Staphylococcus coag negative 11/29/17 12:35 Blood - Peripheral Anaerobic Blood Culture - Preliminary No growth in 2 days 11/29/17 12:20 Blood - Peripheral Aerobic Blood Culture - Final Staphylococcus coag negative 11/29/17 12:20 Blood - Peripheral Anaerobic Blood Culture - Final Staphylococcus coag negative 11/30/17 16:04 Blood - Peripheral Aerobic Blood Culture - Preliminary No growth in 1 day 11/30/17 16:04 Blood - Peripheral Anaerobic Blood Culture - Preliminary No growth in 1 day 11/30/17 16:00 Blood - Peripheral Aerobic Blood Culture - Preliminary No growth in 1 day 11/30/17 16:00 Blood - Peripheral Anaerobic Blood Culture - Preliminary No growth in 1 day 11/30/17 13:16 Bronchial Washings - Left Lower Lobe Fungal Smear - Final No fungal elements seen 11/29/17 09:40 Catheterized Urine Urine Culture - Final [place] albicans Enterococcus faecalis - Procedures 11/30- bronchoscopy Assessment and Plan - Assessment (1) Altered mental status Code(s): R41.82 - Altered mental status, unspecified Status: Acute (2) Lung mass Code(s): R91.8 - Other nonspecific abnormal finding of lung field Status: Acute (3) Acute UTI Code(s): N39.0 - Urinary tract infection, site not specified Status: Acute (4) Hypoxia Code(s): R09.02 - Hypoxemia Status: Acute (5) H/O craniotomy Code(s): Z98.890 - Other specified postprocedural states Status: Chronic (6) History of intracranial hemorrhage Code(s): Z86.79 - Personal history of other diseases of the circulatory system Status: Chronic - Plan This is a 62-year-old CF with 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 Patient is being admitted for IP mgmt of AMS with agitation, UTI, and Hypoxia requiring NC. Per CT Chest, focal filling defect in the distal left mainstem bronchus with opacification of the central segmental branches most prominently of the left lower lobe, endobronchial mass should be excluded. Pulmonary has been consulted to assist with management. Is now status post bronchoscopy with clearing of mucous plugging w/ no mass noted.. 1. REspiratory Failure- secondary to Mucus plugs- s/p bronchoscopy 11/30 Patient on 2L NC CT Chest with opacification of the central segmental branches most prominent in the left lower lung, cannot exclude endobronchial mass Pulmonology - Dr. delatorre ff On antibiotics as below Pneumococcal Legionella antigens are negative, mycoplasma is negative Incentive spirometer ordered to assist with bibasilar atelectasis 2. Sepsis- source- pulmonary + uro Gram + sepsis bacteremia Leukocytosis On vancomycin and Rocephin and azithromycin at this time, ID consult pending 3. UTI- Candiduria UA + many WBC's, large LE, and +bacteria Rocephin Follow-up Urine Cx for sensitivities Diflucan/PEG 4. Elevated LFT's Possible stress reaction secondary to infection Hepatic panel is negative 5. AMS, due to UTI and possible PNA- MS near baseline Per patient is closer to her baseline now since leaving ED He reports that he thinks that her weaning off of the trazodone and now being completely out of it for the last 4 days has caused her increased agitation and confusion We will not resume trazodone unless needed Patient's UTI and possible pneumonia also contributing Will continue to monitor Acetaminophen level negative on admission, Neg UDS, Neg Ammonia 6. Hx of Subdural Hematoma and intraparenchymal hemorrhage, status post decompressive craniotomy with expressive aphasia and right hemiparesis Patient is known to Dr. Campbell, CT Head: Prior right-sided temporoparietal craniectomy. Mild diffuse ventriculomegaly slightly out of proportion to degree of atrophy. Clinical correlation for normal pressure hydrocephalus is recommended. Limited evaluation for acute hemorrhage due to recent contrast administration. However, there is no evidence for significant intra or extra-axial blood products. 7. Hx of PEG tube feedings Per patient uses Osteolite at home, 300mls/4x daily 8. Hx of CVA residual right sided weakness PT Cont. home Baclofen, Amantadine, and Modafinil 9. Hx of Hypertension Blood pressure stable reports that he has not been giving her home meds of Lisinopril and Metoprolol due to low BP's Will resume if needed 10. GERD Cont. Famotidine 11. DVT PPX: SCD's
--- NOTE | 2017-12-01 19:54 | P.PNADD ---
Addendum to Inpatient Note Additional information: pt seen around 1830 full note to follow
--- NOTE | 2017-12-01 19:55 | P.CONID ---
History of Present Illness Service: ID Consult date: 12/01/17 Requesting Physician: Jean Claude Levi Reason for Consult: gram+ sepsis Primary Care Provider: UNKNOWN Chief Complaint: AMS History of Present Illness: Patient is a 62-year-old female with a past medical history of squamous cell carcinoma of the mouth, lymphoma diagnosed in 2007 status post radiation treatment and chemotherapy, subdural hematoma with subfalcine herniation and intraparenchymal hemorrhage in August 2017, status post decompressive craniotomy She has substantial neuro sequela from that stroke and can not provide history History obtained from the chart. She was discharged to [facility] with trach and eventiually decanulated. She has IVC filter and still needs bone flap She presented to [place] with SOB and chest congestion, and cough. Pt was afebrile, vss were stable WBC in 14-[address] of the chest showed no evidence of any pulmonary embolism; but showed a focal filling defect in the distal left main stem bronchus with opacification of the central segmental branches, most prominently of the left lower lobe. She underwent bronchoscopy that revealed mucus plugs Culture growing MSSA She has also coagn negative staph in multiple bottles if her 2 blood cultures set and MSSA in 1/4 bottles SH has UA done with pyuria (innumerbale WBC), hematuria, + LE , however 36 sq epis were noted, which is now a good specimen Has + urine clx with enterococcus, kelly PAST MEDICAL HISTORY:SDH with subfalcine herniation and ICH in August. 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 Status post decompressive craniotomy 2. IVC filter placement in 09/2017. 3. Previous tracheostomy and PEG tube placement in 09/2017. Review of Systems unobtainable due to mental status PMFSH - History History Provided By: Family Member (), Undertaker Helper / EMT - Medical History Medical History: Medical History (Last Reviewed 12/02/17 @ 06:21 by Michelle Weir MD) Bone flap displacement Lymphoma CVA (cerebrovascular accident) - Family History Family History: Family History (Last Updated 12/02/17 @ 06:22 by Michelle Weir MD) Other Family history unobtainable - Social History I have reviewed the patient's Social History: Yes - Tobacco History Second Hand Smoke Exposure: No Tobacco Use In Past 30 Days: No Smoking Status: Current every day smoker Tobacco Type: Cigarettes - Alcohol History How Often Do You Have a Drink Containing Alcohol: Never - Substance Use History Substance History: No History of Abuse - Travel History Recent Travel Out of the Country Within the Last 8 Weeks: No - Immunization History Tetanus Immunization: Unsure Medications and Allergies Active Medications: Active Medications Acetaminophen (Tylenol) 650 mg PO Q4H PRN PRN Reason: Temp > 100.4 Al Hydroxide/Mg Hydroxide (Milk Of Magnesia Liq) 30 ml PO Q12H PRN PRN Reason: Mild Constipation Albuterol (Duoneb Neb (Prn)) 1 ampul NEB Q2HR NEB PRN PRN Reason: DYSPNEA Albuterol (Duoneb Neb (Michelle)) 1 ampul NEB Q4HR NEB [facility] Last Admin: 12/01/17 19:20 Dose: 1 ampul Amantadine HCl (Symmetrel Liq) 150 mg PO BID [facility] Last Admin: 12/01/17 09:02 Dose: 150 mg Baclofen (Lioresal) 10 mg PO Q4H [facility] Last Admin: 12/01/17 18:27 Dose: 10 mg Bisacodyl (Dulcolax Supp) 10 mg RECTAL DAILY PRN PRN Reason: SEVERE CONSITIPATION Cetirizine HCl (Zyrtec Liq) 10 mg PO DAILY [facility] Last Admin: 12/01/17 09:02 Dose: 10 mg Cyanocobalamin (Vitamin B12) 1,000 mcg PO DAILY [facility] Last Admin: 12/01/17 09:02 Dose: 1,000 mcg Famotidine (Pepcid) 20 mg PO DAILY [facility] Last Admin: 12/01/17 09:02 Dose: 20 mg Fluconazole (Diflucan) 100 mg G-TUBE DAILY [facility] Last Admin: 12/01/17 09:02 Dose: 100 mg Guaifenesin (Mucinex Er) 600 mg PO BID [facility] Last Admin: 12/01/17 09:02 Dose: 600 mg Hydrocortisone Acetate (Hydrocortisone 1% Cream) 1 applicatio TOPICAL QID [facility] Last Admin: 12/01/17 18:30 Dose: 1 applicatio Azithromycin 500 mg/ Sodium (Chloride) 250 mls @ 250 mls/hr IV.SIG Q24H [facility] Last Infusion: 12/01/17 15:48 Dose: Infused Vancomycin HCl 750 mg/ Sodium (Chloride) 257.5 mls @ 250 mls/hr IV.SIG Q12H [facility] Last Infusion: 12/01/17 19:26 Dose: Infused Cefazolin Sodium 2,000 mg/ (Sodium Chloride) 100 mls @ 200 mls/hr IV.SIG Q8H MICHELLE Lactulose (Lactulose Liq) 30 ml PO DAILY PRN PRN Reason: SEVERE CONSITIPATION Miscellaneous (Pill Splitter) 1 each OTHER UNSCH PRN PRN Reason: PILL SPIT Miscellaneous Information ([facility] Ordered Lab Info) 0 each OTHER ONCE ONE Stop: 12/02/17 05:46 Modafinil (Provigil) 100 mg PO DAILY@1999 [facility] Last Admin: 11/30/17 22:14 Dose: 100 mg Ondansetron HCl (Zofran Inj) 4 mg IV.PUSH Q6H PRN PRN Reason: NAUSEA OR VOMITING Pharmacy Profile Note (Vancomycin Consult Pharmacy) 1 each OTHER UNSCH PRN PRN Reason: Pharmacy to dose Senna/Docusate Sodium (Maral-Colace) 1 tab PO BID [facility] Last Admin: 12/01/17 09:02 Dose: 1 tab Sennosides (Senokot) 17.2 mg PO Q12H PRN PRN Reason: Moderate Constipation Sodium Chloride (Ns Flush) 2 ml IV.FLUSH UNSCH PRN PRN Reason: FLUSH AFTER USING IV ACCESS Last Admin: 11/29/17 11:15 Dose: 2 ml Allergies Allergy/AdvReac Type Severity Reaction Status Date / Time No Known Allergies Allergy Verified 11/29/17 12:39 Home Medications Medication Instructions Recorded Confirmed Type amantadine HCl 150 mg PO BID 11/29/17 11/29/17 History cyanocobalamin (vitamin B-12) 1,000 mcg PO DAILY 11/29/17 11/29/17 History famotidine 20 mg PO DAILY 11/29/17 11/29/17 History modafinil 100 mg PO DAILY 11/29/17 11/29/17 History Exam Vital signs: Vital Signs 11/30/17 20:00 11/30/17 20:03 11/30/17 23:59 Temperature 98.7 F Pulse Rate 85 83 88 Respiratory Rate 16 14 15 Blood Pressure 123/73 Pulse Oximetry 98 12/01/17 00:00 12/01/17 03:44 12/01/17 04:00 Temperature 97.9 F 98.0 F Pulse Rate 82 79 73 Respiratory Rate 18 14 18 Blood Pressure 134/78 127/76 Pulse Oximetry 97 97 12/01/17 07:00 12/01/17 07:40 12/01/17 08:00 Temperature 98.4 F Pulse Rate 74 76 Respiratory Rate 12 20 Blood Pressure 161/71 H Pulse Oximetry 99 98 12/01/17 09:00 12/01/17 11:00 12/01/17 12:00 Temperature 98.3 F Pulse Rate 87 77 83 Respiratory Rate 12 19 Blood Pressure 123/60 Pulse Oximetry 98 12/01/17 15:00 12/01/17 16:00 12/01/17 19:21 Temperature 98.0 F Pulse Rate 79 82 83 Respiratory Rate 12 19 16 Blood Pressure 130/73 Pulse Oximetry 95 12/01/17 19:22 Temperature Pulse Rate Respiratory Rate Blood Pressure Pulse Oximetry 94 L Intake & Output 12/01/17 12/01/17 12/02/17 06:59 18:59 06:59 Intake Total 607.5 / 607.5 257.5 / 257.5 Output Total 600 / 600 900 / 900 Balance -600 / -600 -292.5 / -292.5 257.5 / 257.5 Weight 42.1 kg Intake: IV 607.5 / 607.5 257.5 / 257.5 Azithromycin Inj 500 MG In NS 250 / 250 Inj 250 ML @ 250 mls/hr IV.SIG Q24H MICHELLE Rx#:[id number] Vancomycin Inj 750 MG In NS Inj 257.5 / 257.5 257.5 / 257.5 250 ML @ 250 mls/hr IV.SIG Q12H MICHELLE Rx#:[id number] Rocephin Inj 1,000 MG In NS Inj 100 / 100 100 ML @ 200 mls/hr IV.SIG Q24H MICHELLE Rx#:[id number] Output: Urine 600 / 600 900 / 900 Other: # Incontinent Voids 2 # Bowel Movements 1 - Constitutional no acute distress, thin - Routine HEENT Exam Head: Present: normocephalic, atraumatic Eye: Present: EOMI, PERRL ENT: Present: mucous membranes moist, nares patent - Routine Neck Exam Present: supple. Absent: lymphadenopathy, thyromegaly - Routine Respiratory Exam Present: rhonchi, diminished air movement. Absent: respiratory distress, wheezes - Routine Cardiovascular Exam Present: RRR, S1, S2. Absent: murmur, gallop, rubs - Routine Abdominal Exam Present: soft, normoactive bowel sounds, ostomy (PEG in place). Absent: tenderness, distended, organomegaly, mass - Routine Extremities Exam Absent: cyanosis, clubbing, edema - Routine Skin Exam Present: normal turgor. Absent: mottling, jaundice, rash - Routine Neurological Exam Present: alert, motor deficit (R hemiplegia), hemineglect (R ). Absent: oriented X3, altered mental status (not oriented), normal speech (non verbal) - Routine Psychiatric Exam Present: unable to assess Results - Labs CBC & Chem 7: 11/30/17 05:50 11/30/17 05:50 - Imaging Head CT 11/29/17 00:00 CONCLUSION: 1. Prior right-sided temporoparietal craniectomy.. 2. Mild diffuse ventriculomegaly slightly out of proportion to degree of atrophy. Clinical correlation for normal pressure hydrocephalus is recommended. 3. Limited evaluation for acute hemorrhage due to recent contrast administration. However, there is no evidence for significant intra or extra- axial blood products. Chest X-Ray 11/29/17 08:23 CONCLUSION: 1. No acute cardiopulmonary disease. Chest CTA 11/29/17 10:08 CONCLUSION: 1. No CT evidence for pulmonary artery embolism. 2. Focal filling defect in the distal left mainstem bronchus with opacification of the central segmental branches most prominently of the left lower lobe. This is a new finding since previous exam. Endobronchial mass should be excluded. 3. Decreased opacification of the left pulmonary veins extending to the junction of the left atrium. Although nonspecific, this may be related to reactive decreased perfusion of the left lung due to decreased aeration. 4. Minimal bibasilar atelectasis. Chest X-Ray 11/30/17 14:40 CONCLUSION: Possible mild case of pulmonary edema not present previously. Assessment and Plan - Plan MSSA PNA with mucus plugs MSSA bacteremia, probably 2/2 PNA coag neg staph bacteremia ? UTI vs bacteriuria. Not a good urine specimen Funguria. Doubt cli significance cont vancomycin change CFTX to ANcef fu blood clx untill final repeat UA, C+S if indicated
[2017-12-01] MEDS: Modafinil 200 MG Tablet PO SCH (22:20)
[2017-12-01] MEDS: ceFAZolin Inj 2,000 MG in Sodium Chlor 0.9% Inj 80 ML IV.SIG SCH (22:27)
[2017-12-02] MEDS: ceFAZolin Inj 2,000 MG in Sodium Chlor 0.9% Inj 80 ML IV.SIG SCH ×3 (03:16→21:53)
[2017-12-02] MEDS: Baclofen 10 MG Tablet PO SCH ×6 (03:19→21:54)
[2017-12-02] MEDS ORDERED: Pharmacy Ordered Lab Info OTHER ONE (05:45)
[2017-12-02] MEDS: Vancomycin Inj 750 MG in Sodium Chlor 0.9% Inj 250 ML IV.SIG SCH (05:46)
[2017-12-02 06:22] LABS: Glomerular Filtration Rate Greater Than 89 mL/min (>89)
[2017-12-02 06:23] LABS: Vancomycin,Trough 7.4 mcg/mL (5.0-10.0)
[2017-12-02 07:14] LABS: Baso % (Auto) 0.4 % (0.0-2.0); Eos # (Auto) 0.1 th/mm3 (0.0-0.4); Eos % (Auto) 0.5 % (0.0-4.0); Hematocrit 32.4 % (35.0-46.0); Hemoglobin 11.1 gm/dL (11.6-15.3); Lymph # (Auto) 1.6 th/mm3 (1.0-4.8); Lymph % (Auto) 13.9 % (9.0-44.0); Mean Corpuscular HGB Conc 34.4 % (32.0-36.0); Mean Corpuscular Volume 90.2 fL (80.0-100.0); Mean Platelet Volume 8.4 fL (7.0-11.0); Mono # (Auto) 0.8 th/mm3 (0.0-0.9); Mono % (Auto) 6.7 % (0.0-8.0); Neut # (Auto) 9.1 th/mm3 (1.8-7.7); Neut % (Auto) 78.5 % (16.0-70.0); Platelet Count 427 th/mm3 (150-450); Red Blood Count 3.59 mil/mm3 (4.00-5.30); Red Cell Distribution Width 13.9 % (11.6-17.2); White Blood Count 11.6 th/mm3 (4.0-11.0)
--- NOTE | 2017-12-02 09:25 | P.PNPL ---
Subjective Interval history: Patient is lying in bed in NAD. Afebrile. Physical Exam Vital signs: Vital Signs 12/01/17 11:00 12/01/17 12:00 12/01/17 15:00 Temperature 98.3 F Pulse Rate 77 83 79 Respiratory Rate 12 19 12 Blood Pressure 123/60 Pulse Oximetry 98 12/01/17 16:00 12/01/17 19:21 12/01/17 19:22 Temperature 98.0 F Pulse Rate 82 83 Respiratory Rate 19 16 Blood Pressure 130/73 Pulse Oximetry 95 94 L 12/01/17 20:00 12/02/17 00:00 12/02/17 01:06 Temperature 97.9 F 98.3 F Pulse Rate 108 H 87 96 H Respiratory Rate 18 18 20 Blood Pressure 142/68 H 145/72 H Pulse Oximetry 96 97 12/02/17 04:00 12/02/17 05:38 12/02/17 07:31 Temperature 98.2 F Pulse Rate 106 H 80 108 H Respiratory Rate 18 17 16 Blood Pressure 142/90 H Pulse Oximetry 95 96 12/02/17 07:58 Temperature 98.4 F Pulse Rate 108 H Respiratory Rate 19 Blood Pressure 167/77 H Pulse Oximetry 96 Intake & Output 12/01/17 12/02/17 12/02/17 18:59 06:59 18:59 Intake Total 607.5 / 607.5 457.5 / 457.5 257.5 / 257.5 Output Total 900 / 900 Balance -292.5 / -292.5 457.5 / 457.5 257.5 / 257.5 Weight 42.9 kg Intake: IV 607.5 / 607.5 457.5 / 457.5 257.5 / 257.5 Azithromycin Inj 500 MG In NS 250 / 250 Inj 250 ML @ 250 mls/hr IV.SIG Q24H JUANITA Rx#:[id number] Vancomycin Inj 750 MG In NS Inj 257.5 / 257.5 257.5 / 257.5 257.5 / 257.5 250 ML @ 250 mls/hr IV.SIG Q12H JUANITA Rx#:[id number] Ancef Inj 2,000 MG In NS Inj 80 200 / 200 ML @ 200 mls/hr IV.SIG Q8H JUANITA Rx#:[id number] Rocephin Inj 1,000 MG In NS Inj 100 / 100 100 ML @ 200 mls/hr IV.SIG Q24H JUANITA Rx#:[id number] Output: Urine 900 / 900 Other: # Incontinent Voids 2 # Bowel Movements 1 - Constitutional no acute distress - Routine HEENT Exam Head: Present: normocephalic, atraumatic Eye: Present: EOMI, PERRL, normal accommodation ENT: Present: mucous membranes moist - Routine Neck Exam Present: supple, full ROM, trachea midline - Routine Respiratory Exam Present: CTA bilaterally - Routine Cardiovascular Exam Present: RRR, S1, S2 - Routine Abdominal Exam Present: soft, normoactive bowel sounds Comments: PEG tube in place. - Routine Extremities Exam Present: pulses intact - Routine Skin Exam Present: intact, dry - Routine Neurological Exam Present: altered mental status Assessment and Plan - Plan 1. Respiratory insufficiency. 2. Filling defect in the left main stem bronchus. 2nd mucous plugs 2. ? COPD, hx tobacco abuse 3. Leukocytosis. 4. Coag neg staph bacteremia 5. UTI 6. History of subdural hematoma and IPH status post decompressive craniotomy. 7. Previous IVC filter placement in August. 8. Chronic respiratory failure, status post tracheostomy decannulated in October. 9. s/p PEG tube placement 11. History CVA 12. Hypertension. Plan Continue with oxygen and maintain sats > 92%. Bronchodilators , s/p solumederol 40mg Q6x 4 doses Aspiration precautions s/p bronch with BAL 11/30 showed mucous plugs in trach EMMANUEL/LLL suctioned to clear, no evidence of endobronchial lesions Follow up on BAL: Coag negative staph bacteremia 11/29 BC: GPC 2/4 bottles. Follow up on BC from 11/30-NGTD 11/29 Urine cx: [place], enterococcus Continue abx, on Vanco, Ancef,Zithromax and Diflucan,monitor for signs of infection( fever and WBC). ID is following- Dr. Carmella Sierra strep throat is negative Nasal washing screening for influenza is negative. Monitor neuro status Nutrition support - on bolus tube feeds (Osmolite) Continue treatment plan
[2017-12-02] MEDS: Amantadine Liq 100 MG/10 ML UDC PO SCH ×2 (09:32→21:53)
[2017-12-02] MEDS: guaiFENesin 600 MG ER Tablet PO SCH ×2 (09:33→21:54)
[2017-12-02] MEDS: Senna/Docusate Sodium 8.6/50 MG Tablet PO SCH ×2 (09:33→21:54)
[2017-12-02] MEDS: Famotidine 20 MG Tablet PO SCH (09:33)
[2017-12-02] MEDS: Cetirizine 10 MG/10 ML UDC PO SCH (09:33)
[2017-12-02] MEDS: Fluconazole 100 MG Tablet G-TUBE SCH (09:33)
--- NOTE | 2017-12-02 13:02 | P.PN ---
Subjective Interval history: Nursing denies any deterioration since last night. Reportedly neurosurgery came by to talk to the family about a possible procedure in the future once the patient is more stable. Physical Exam Vital signs: Vital Signs 12/01/17 15:00 12/01/17 16:00 12/01/17 19:21 Temperature 98.0 F Pulse Rate 79 82 83 Respiratory Rate 12 19 16 Blood Pressure 130/73 Pulse Oximetry 95 12/01/17 19:22 12/01/17 20:00 12/02/17 00:00 Temperature 97.9 F 98.3 F Pulse Rate 108 H 87 Respiratory Rate 18 18 Blood Pressure 142/68 H 145/72 H Pulse Oximetry 94 L 96 97 12/02/17 01:06 12/02/17 04:00 12/02/17 05:38 Temperature 98.2 F Pulse Rate 96 H 106 H 80 Respiratory Rate 20 18 17 Blood Pressure 142/90 H Pulse Oximetry 95 12/02/17 07:31 12/02/17 07:58 12/02/17 08:00 Temperature 98.4 F 98.4 F Pulse Rate 108 H 108 H 108 H Respiratory Rate 16 19 19 Blood Pressure 167/77 H 167/77 H Pulse Oximetry 96 96 96 12/02/17 11:49 12/02/17 12:00 Temperature 98.8 F Pulse Rate 80 89 Respiratory Rate 16 18 Blood Pressure 144/73 H Pulse Oximetry 89 L Intake & Output 12/01/17 12/02/17 12/02/17 18:59 06:59 18:59 Intake Total 607.5 / 607.5 457.5 / 457.5 257.5 / 257.5 Output Total 900 / 900 Balance -292.5 / -292.5 457.5 / 457.5 257.5 / 257.5 Weight 42.9 kg Intake: IV 607.5 / 607.5 457.5 / 457.5 257.5 / 257.5 Azithromycin Inj 500 MG In NS 250 / 250 Inj 250 ML @ 250 mls/hr IV.SIG Q24H [facility]ITA Rx#:[id number] Vancomycin Inj 750 MG In NS Inj 257.5 / 257.5 257.5 / 257.5 257.5 / 257.5 250 ML @ 250 mls/hr IV.SIG Q12H [facility] Rx#:[id number] Ancef Inj 2,000 MG In NS Inj 80 200 / 200 ML @ 200 mls/hr IV.SIG Q8H JUANITA Rx#:[id number] Rocephin Inj 1,000 MG In NS Inj 100 / 100 100 ML @ 200 mls/hr IV.SIG Q24H JUANITA Rx#:[id number] Output: Urine 900 / 900 Other: # Incontinent Voids 2 # Bowel Movements 1 Narrative: Unlabored breathing, clear lungs bilaterally Lying in bed, largely nonverbal Results - Labs CBC & Chem 7: 12/02/17 06:06 12/02/17 05:35 Laboratory Results - last 24 hr 12/02/17 12/02/17 05:35 06:06 WBC 11.6 H RBC 3.59 L Hgb 11.1 L Hct 32.4 L MCV 90.2 MCH 31.0 MCHC 34.4 RDW 13.9 Plt Count 427 MPV 8.4 Neut % (Auto) 78.5 H Lymph % (Auto) 13.9 Webster % (Auto) 6.7 Eos % (Auto) 0.5 Baso % (Auto) 0.4 Neut # (Auto) 9.1 H Lymph # (Auto) 1.6 Webster # (Auto) 0.8 Eos # (Auto) 0.1 Baso # (Auto) 0.0 WBC Differential . Differential Comment Auto diff final Creatinine 0.34 L Estimated GFR Greater than 89 Vancomycin Trough 7.4 Microbiology 11/30/17 13:16 Bronchial Washings - Left Lower Lobe Acid Fast Bacilli Smear - Final No acid fast bacilli seen 11/30/17 13:16 Bronchial - Left Lower Lobe Gram Stain - Final 11/30/17 13:16 Bronchial - Left Lower Lobe Bronchial Culture - Final Staphylococcus aureus 11/30/17 16:04 Blood - Peripheral Aerobic Blood Culture - Preliminary No growth in 2 days 11/30/17 16:04 Blood - Peripheral Anaerobic Blood Culture - Preliminary No growth in 2 days 11/30/17 16:00 Blood - Peripheral Aerobic Blood Culture - Preliminary No growth in 2 days 11/30/17 16:00 Blood - Peripheral Anaerobic Blood Culture - Preliminary No growth in 2 days 11/29/17 12:35 Blood - Peripheral Aerobic Blood Culture - Final Staphylococcus aureus Staphylococcus coag negative 11/29/17 12:35 Blood - Peripheral Anaerobic Blood Culture - Preliminary No growth in 3 days 11/29/17 12:30 Throat Group A Streptococcus Screen/Cult - Final No Beta Streptococci isolated. 11/29/17 12:20 Blood - Peripheral Aerobic Blood Culture - Final Staphylococcus coag negative 11/29/17 12:20 Blood - Peripheral Anaerobic Blood Culture - Final Staphylococcus coag negative 11/30/17 13:16 Bronchial Washings - Left Lower Lobe Fungal Smear - Final No fungal elements seen - Procedures 11/30- bronchoscopy Assessment and Plan - Assessment (1) Altered mental status Code(s): R41.82 - Altered mental status, unspecified Status: Acute (2) Lung mass Code(s): R91.8 - Other nonspecific abnormal finding of lung field Status: Acute (3) Acute UTI Code(s): N39.0 - Urinary tract infection, site not specified Status: Acute (4) Hypoxia Code(s): R09.02 - Hypoxemia Status: Acute (5) H/O craniotomy Code(s): Z98.890 - Other specified postprocedural states Status: Chronic (6) History of intracranial hemorrhage Code(s): Z86.79 - Personal history of other diseases of the circulatory system Status: Chronic - Plan This is a 62-year-old CF with 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 Patient is being admitted for IP mgmt of AMS with agitation, UTI, and Hypoxia requiring NC. Per CT Chest, focal filling defect in the distal left mainstem bronchus with opacification of the central segmental branches most prominently of the left lower lobe, endobronchial mass should be excluded. Pulmonary has been consulted to assist with management. Is now status post bronchoscopy with clearing of mucous plugging w/ no mass noted.. 1. REspiratory Failure- secondary to Mucus plugs- s/p bronchoscopy 11/30 Patient on 2L NC CT Chest with opacification of the central segmental branches most prominent in the left lower lung, cannot exclude endobronchial mass Pulmonology - Dr. delatorre ff On antibiotics as below Pneumococcal Legionella antigens are negative, mycoplasma is negative Incentive spirometer ordered to assist with bibasilar atelectasis Sepsis- source- pulmonary + UTI Gram + sepsis bacteremia as well as candiduria and bacteriuria, Leukocytosis Continue azithromycin, Ancef, vancomycin per infectious disease Diflucan Elevated LFT's Possible stress reaction secondary to infection Hepatic panel is negative AMS, due to UTI and possible PNA- MS near baseline Per patient is closer to her baseline now since leaving ED He reports that he thinks that her weaning off of the trazodone and now being completely out of it for the last 4 days has caused her increased agitation and confusion We will not resume trazodone unless needed Patient's UTI and possible pneumonia also contributing Hx of Subdural Hematoma and intraparenchymal hemorrhage, status post decompressive craniotomy with expressive aphasia and right hemiparesis Patient is known to Dr. Campbell, CT Head: Prior right-sided temporoparietal craniectomy. Mild diffuse ventriculomegaly slightly out of proportion to degree of atrophy. Clinical correlation for normal pressure hydrocephalus is recommended. Limited evaluation for acute hemorrhage due to recent contrast administration. However, there is no evidence for significant intra or extra-axial blood products. Hx of PEG tube feedings Per patient uses Osteolite at home, 300mls/4x daily Hx of CVA residual right sided weakness PT Cont. home Baclofen, Amantadine, and Modafinil Hx of Hypertension Blood pressure stable reports that he has not been giving her home meds of Lisinopril and Metoprolol due to low BP's Will resume if needed 10. GERD Cont. Famotidine 11. DVT PPX: SCD's
[2017-12-02] MEDS: Azithromycin Inj 500 MG in Sodium Chlor 0.9% Inj 250 ML IV.SIG SCH (14:40)
[2017-12-02] MEDS: Vancomycin Inj 1,250 MG in Sodium Chlor 0.9% Inj 250 ML IV.SIG SCH (18:22)
[2017-12-02] MEDS: Modafinil 200 MG Tablet PO SCH (21:53)
[2017-12-03] MEDS: Baclofen 10 MG Tablet PO SCH ×6 (03:09→21:55)
[2017-12-03] MEDS: ceFAZolin Inj 2,000 MG in Sodium Chlor 0.9% Inj 80 ML IV.SIG SCH ×3 (03:09→20:18)
[2017-12-03] MEDS: Vancomycin Inj 1,250 MG in Sodium Chlor 0.9% Inj 250 ML IV.SIG SCH ×2 (05:28→18:31)
[2017-12-03] MEDS: Senna/Docusate Sodium 8.6/50 MG Tablet PO SCH ×2 (08:30→21:54)
[2017-12-03] MEDS: Famotidine 20 MG Tablet PO SCH (08:30)
[2017-12-03] MEDS: guaiFENesin 600 MG ER Tablet PO SCH ×2 (08:30→20:20)
[2017-12-03] MEDS: Cetirizine 10 MG/10 ML UDC PO SCH (08:30)
[2017-12-03] MEDS: Fluconazole 100 MG Tablet G-TUBE SCH (08:30)
[2017-12-03] MEDS: Amantadine Liq 100 MG/10 ML UDC PO SCH ×2 (08:31→20:20)
--- NOTE | 2017-12-03 08:51 | P.PNNS ---
Subjective Interval history: Ms Yu is neurologically stable. Admitted with pulmonary problems, including a mucus plug, bacteremia, and a UTI Physical Exam Vital signs: Vital Signs 12/02/17 09:00 12/02/17 11:49 12/02/17 12:00 Temperature 98.4 F 98.8 F Pulse Rate 108 H 80 83 Respiratory Rate 19 16 18 Blood Pressure 167/77 H 144/73 H Pulse Oximetry 96 89 L 12/02/17 15:45 12/02/17 16:00 12/02/17 19:40 Temperature 98.6 F Pulse Rate 82 84 100 H Respiratory Rate 16 18 18 Blood Pressure 133/69 Pulse Oximetry 96 98 12/02/17 20:00 12/02/17 23:55 12/03/17 00:00 Temperature 98.3 F 98.6 F Pulse Rate 100 H 86 97 H Respiratory Rate 18 20 18 Blood Pressure 171/95 H 141/76 H Pulse Oximetry 98 97 12/03/17 03:51 12/03/17 04:00 12/03/17 07:42 Temperature 97.9 F Pulse Rate 93 H 74 69 Respiratory Rate 20 18 20 Blood Pressure 122/58 L Pulse Oximetry 97 96 Intake & Output 12/02/17 12/03/17 12/03/17 18:59 06:59 18:59 Intake Total 607.5 / 607.5 725.0 / 725.0 Output Total 400 / 400 800 / 800 Balance 207.5 / 207.5 -75.0 / -75.0 Weight 41.8 kg Intake: IV 607.5 / 607.5 725.0 / 725.0 Azithromycin Inj 500 MG In NS 250 / 250 Inj 250 ML @ 250 mls/hr IV.SIG Q24H [facility] Rx#:[id number] Vancomycin Inj 1,250 MG In NS 257.5 / 257.5 525.0 / 525.0 Inj 250 ML @ 250 mls/hr IV.SIG Q12H [facility] Rx#:[id number] Ancef Inj 2,000 MG In NS Inj 80 100 / 100 200 / 200 ML @ 200 mls/hr IV.SIG Q8H [facility] Rx#:[id number] Output: Urine 400 / 400 800 / 800 Other: Date of Last Bowel Movement 12/02/17 # Bowel Movements 1 Narrative: Alert, awake Expressive aphasia Right dense hemiparesis Heart RRR Unlabored breathing, clear lungs bilaterally Lying in bed, largely nonverbal Assessment and Plan - Plan Neurologically stable. I have reviewed the clinical and radiological findings Head CT 11/29/17 00:00 CONCLUSION: 1. Prior right-sided temporoparietal craniectomy.. 2. Mild diffuse ventriculomegaly slightly out of proportion to degree of atrophy. Clinical correlation for normal pressure hydrocephalus is recommended. 3. Limited evaluation for acute hemorrhage due to recent contrast administration. However, there is no evidence for significant intra or extra- axial blood products. Chest CTA 11/29/17 10:08 CONCLUSION: 1. No CT evidence for pulmonary artery embolism. 2. Focal filling defect in the distal left mainstem bronchus with opacification of the central segmental branches most prominently of the left lower lobe. This is a new finding since previous exam. Endobronchial mass should be excluded. 3. Decreased opacification of the left pulmonary veins extending to the junction of the left atrium. Although nonspecific, this may be related to reactive decreased perfusion of the left lung due to decreased aeration. 4. Minimal bibasilar atelectasis. Chest X-Ray 11/30/17 14:40 CONCLUSION: Possible mild case of pulmonary edema not present previously. Neuro: neuro checks in a serial fashion. I reviewed her CT and disicussed it with her . No need for acute neurosurgical intervention/ Cranioplasty in the future once her medical problems resolved Pulmonary: aggressive pulmonary toilette, nasotracheal suction, and breathing treatments with nebulizers. Daily PT and OT Renal: Continue to monitor closely urine output, BUN and creatinine Endocrine: Continue to Monitor serial Acu checks and SSI as needed in detail ID continue antibiotics. Follow up cultures Continue Protonix for stress ulcer prophylaxis Continue Wilian piña and SCD's for DVT prophylaxis
--- NOTE | 2017-12-03 09:26 | P.PNPL ---
Subjective Interval history: No eevnts overnight, on room air oxygen. Afebrile. Physical Exam Vital signs: Vital Signs 12/02/17 11:49 12/02/17 12:00 12/02/17 15:45 Temperature 98.8 F Pulse Rate 80 83 82 Respiratory Rate 16 18 16 Blood Pressure 144/73 H Pulse Oximetry 89 L 12/02/17 16:00 12/02/17 19:40 12/02/17 20:00 Temperature 98.6 F 98.3 F Pulse Rate 84 100 H 100 H Respiratory Rate 18 18 18 Blood Pressure 133/69 171/95 H Pulse Oximetry 96 98 98 12/02/17 23:55 12/03/17 00:00 12/03/17 03:51 Temperature 98.6 F Pulse Rate 86 97 H 93 H Respiratory Rate 20 18 20 Blood Pressure 141/76 H Pulse Oximetry 97 12/03/17 04:00 12/03/17 07:42 Temperature 97.9 F Pulse Rate 74 69 Respiratory Rate 18 20 Blood Pressure 122/58 L Pulse Oximetry 97 96 Intake & Output 12/02/17 12/03/17 12/03/17 18:59 06:59 18:59 Intake Total 607.5 / 607.5 725.0 / 725.0 Output Total 400 / 400 800 / 800 Balance 207.5 / 207.5 -75.0 / -75.0 Weight 41.8 kg Intake: IV 607.5 / 607.5 725.0 / 725.0 Azithromycin Inj 500 MG In NS 250 / 250 Inj 250 ML @ 250 mls/hr IV.SIG Q24H JUANITA Rx#:[id number] Vancomycin Inj 1,250 MG In NS 257.5 / 257.5 525.0 / 525.0 Inj 250 ML @ 250 mls/hr IV.SIG Q12H JUANITA Rx#:[id number] Ancef Inj 2,000 MG In NS Inj 80 100 / 100 200 / 200 ML @ 200 mls/hr IV.SIG Q8H JUANITA Rx#:[id number] Output: Urine 400 / 400 800 / 800 Other: Date of Last Bowel Movement 12/02/17 # Bowel Movements 1 - Constitutional no acute distress - Routine HEENT Exam Head: Present: normocephalic, atraumatic Eye: Present: EOMI, PERRL, conjunctivae pink ENT: Present: mucous membranes moist - Routine Neck Exam Present: supple, full ROM, trachea midline - Routine Respiratory Exam Present: CTA bilaterally - Routine Cardiovascular Exam Present: RRR, S1, S2 - Routine Abdominal Exam Present: soft, normoactive bowel sounds - Routine Extremities Exam Present: pulses intact - Routine Skin Exam Present: intact, dry - Routine Neurological Exam Present: altered mental status Assessment and Plan - Plan 1. Respiratory insufficiency. 2. Filling defect in the left main stem bronchus. 2nd mucous plugs 2. ? COPD, hx tobacco abuse 3. Leukocytosis. 4. Coag neg staph bacteremia 5. UTI 6. History of subdural hematoma and IPH status post decompressive craniotomy. 7. Previous IVC filter placement in August. 8. Chronic respiratory failure, status post tracheostomy decannulated in October. 9. s/p PEG tube placement 11. History CVA 12. Hypertension. Plan Continue with oxygen and maintain sats > 92%. Bronchodilators , s/p solumederol 40mg Q6x 4 doses Aspiration precautions, check CXR s/p bronch with BAL 11/30 showed mucous plugs in trach EMMANUEL/LLL suctioned to clear, no evidence of endobronchial lesions Cytology: Benign bronchial epithelial cells in background of lymphoid cells, histocytes, and neutrophils Follow up on BAL: Coag negative staph bacteremia Will need repeat CT chest in 2-4 weeks from discharge. 11/29 BC: GPC 2/4 bottles. Follow up on BC from 11/30-NGTD 11/29 Urine cx: [place], enterococcus Continue abx, on Vanco, Ancef,Zithromax and Diflucan,monitor for signs of infection( fever and WBC). ID is following- Dr. [facility] A strep throat is negative Nasal washing screening for influenza is negative. Monitor neuro status Nutrition support - on bolus tube feeds (Osmolite) Continue treatment plan
--- NOTE | 2017-12-03 10:38 | XR ---
EXAM DATE: 12/03/2017 10:28 AM EDT AGE/SEX: 62 years / Female INDICATIONS: Infiltrate. CLINICAL DATA: This is the patient's subsequent encounter. Patient reports that signs and symptoms h ave been present for 4 - 6 days and indicates a pain score of Nonresponsive. MEDICAL/SURGICAL HISTORY: . Cerebrovascular disease. Lymphoma. stroke Craniotomy. . Peg tube. COMPARISON: [facility] [place], CHEST 1V SINGLE AP, 11/30/2017. . FINDINGS: Mild parenchymal opacity at the left lung base. Right lung is clear. No significant effusion. Cardiac contours are satisfactory. CONCLUSION: Mild left base infiltrate Electronically signed by: Juan F Silveira MD 12/03/2017 10:37 AM EDT
--- NOTE | 2017-12-03 13:07 | P.PN ---
Subjective Interval history: Nursing denies any deterioration since last night. Patient herself is actually working with physical therapy. Repeat chest x-ray from earlier this morning per my independent review shows no acute infiltrates despite radiology read mentioning a mild eft basilar infiltrate. Physical Exam Vital signs: Vital Signs 12/02/17 15:45 12/02/17 16:00 12/02/17 19:40 Temperature 98.6 F Pulse Rate 82 84 100 H Respiratory Rate 16 18 18 Blood Pressure 133/69 Pulse Oximetry 96 98 12/02/17 20:00 12/02/17 23:55 12/03/17 00:00 Temperature 98.3 F 98.6 F Pulse Rate 100 H 86 97 H Respiratory Rate 18 20 18 Blood Pressure 171/95 H 141/76 H Pulse Oximetry 98 97 12/03/17 03:51 12/03/17 04:00 12/03/17 07:42 Temperature 97.9 F Pulse Rate 93 H 74 69 Respiratory Rate 20 18 20 Blood Pressure 122/58 L Pulse Oximetry 97 96 12/03/17 08:00 12/03/17 10:55 12/03/17 12:00 Temperature 97.8 F 97.5 F L Pulse Rate 95 H 85 97 H Respiratory Rate 16 20 16 Blood Pressure 154/74 H 128/67 Pulse Oximetry 97 97 Intake & Output 12/02/17 12/03/17 12/03/17 18:59 06:59 18:59 Intake Total 607.5 / 607.5 725.0 / 725.0 100 / 100 Output Total 400 / 400 800 / 800 Balance 207.5 / 207.5 -75.0 / -75.0 100 / 100 Weight 41.8 kg Intake: IV 607.5 / 607.5 725.0 / 725.0 100 / 100 Azithromycin Inj 500 MG In NS 250 / 250 Inj 250 ML @ 250 mls/hr IV.SIG Q24H JUANITA Rx#:[id number] Vancomycin Inj 1,250 MG In NS 257.5 / 257.5 525.0 / 525.0 Inj 250 ML @ 250 mls/hr IV.SIG Q12H JUANITA Rx#:[id number] Ancef Inj 2,000 MG In NS Inj 80 100 / 100 200 / 200 100 / 100 ML @ 200 mls/hr IV.SIG Q8H JUANITA Rx#:[id number] Output: Urine 400 / 400 800 / 800 Other: Date of Last Bowel Movement 12/02/17 # Bowel Movements 1 Narrative: Clear lungs bilaterally heard from a posterior position, unlabored breathing Patient sitting up, cooperating with therapist No acute distress Nonverbal Results - Labs CBC & Chem 7: 12/02/17 06:06 12/04/17 05:30 Microbiology 11/30/17 16:04 Blood - Peripheral Aerobic Blood Culture - Preliminary No growth in 3 days 11/30/17 16:04 Blood - Peripheral Anaerobic Blood Culture - Preliminary No growth in 3 days 11/30/17 16:00 Blood - Peripheral Aerobic Blood Culture - Preliminary No growth in 3 days 11/30/17 16:00 Blood - Peripheral Anaerobic Blood Culture - Preliminary No growth in 3 days 11/29/17 12:35 Blood - Peripheral Aerobic Blood Culture - Final Staphylococcus aureus Staphylococcus coag negative 11/29/17 12:35 Blood - Peripheral Anaerobic Blood Culture - Preliminary gram positive cocci 11/30/17 13:16 Bronchial Washings - Left Lower Lobe Acid Fast Bacilli Smear - Final No acid fast bacilli seen 11/30/17 13:16 Bronchial - Left Lower Lobe Gram Stain - Final 11/30/17 13:16 Bronchial - Left Lower Lobe Bronchial Culture - Final Staphylococcus aureus - Imaging Impressions Chest X-Ray 12/03/17 09:27 CONCLUSION: Mild left base infiltrate - Procedures 11/30- bronchoscopy Assessment and Plan - Assessment (1) Altered mental status Code(s): R41.82 - Altered mental status, unspecified Status: Acute (2) Lung mass Code(s): R91.8 - Other nonspecific abnormal finding of lung field Status: Acute (3) Acute UTI Code(s): N39.0 - Urinary tract infection, site not specified Status: Acute (4) Hypoxia Code(s): R09.02 - Hypoxemia Status: Acute (5) H/O craniotomy Code(s): Z98.890 - Other specified postprocedural states Status: Chronic (6) History of intracranial hemorrhage Code(s): Z86.79 - Personal history of other diseases of the circulatory system Status: Chronic - Plan This is a 62-year-old CF with 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 Patient is being admitted for IP mgmt of AMS with agitation, UTI, and Hypoxia requiring NC. Per CT Chest, focal filling defect in the distal left mainstem bronchus with opacification of the central segmental branches most prominently of the left lower lobe, endobronchial mass should be excluded. Pulmonary has been consulted to assist with management. Is now status post bronchoscopy with clearing of mucous plugging w/ no mass noted. 1. REspiratory Failure- Resolved; now on RA CT Chest with opacification of the central segmental branches most prominent in the left lower lung, cannot exclude endobronchial mass Pulmonology - Dr. delatorre ff On antibiotics as below Pneumococcal Legionella antigens are negative, mycoplasma is negative Incentive spirometer ordered to assist with bibasilar atelectasis Sepsis- source- pulmonary + UTI Gram + sepsis bacteremia as well as candiduria and bacteriuria, Leukocytosis Continue azithromycin, Ancef, vancomycin per infectious disease Diflucan Elevated LFT's Possible stress reaction secondary to infection Hepatic panel is negative AMS, due to UTI and possible PNA- MS near baseline Patient's UTI and possible pneumonia also contributing We will not resume trazodone unless needed Hx of Subdural Hematoma and intraparenchymal hemorrhage, status post decompressive craniotomy with expressive aphasia and right hemiparesis Patient is known to Dr. Campbell, CT Head: Prior right-sided temporoparietal craniectomy. Mild diffuse ventriculomegaly slightly out of proportion to degree of atrophy. Clinical correlation for normal pressure hydrocephalus is recommended. Limited evaluation for acute hemorrhage due to recent contrast administration. However, there is no evidence for significant intra or extra-axial blood products. Hx of PEG tube feedings Per patient uses Osteolite at home, 300mls/4x daily Hx of CVA residual right sided weakness PT Cont. home Baclofen, Amantadine, and Modafinil Hx of Hypertension Blood pressure stable reports that he has not been giving her home meds of Lisinopril and Metoprolol due to low BP's Will resume if needed 10. GERD Cont. Famotidine 11. DVT PPX: SCD's
[2017-12-03] MEDS: Azithromycin Inj 500 MG in Sodium Chlor 0.9% Inj 250 ML IV.SIG SCH (13:48)
--- NOTE | 2017-12-03 19:30 | P.PNADD ---
Addendum to Inpatient Note Additional information: pt seen around 1900 full note to follow
[2017-12-03] MEDS: Modafinil 200 MG Tablet PO SCH (20:20)
--- NOTE | 2017-12-03 23:16 | P.PNID ---
Subjective Remarks: delayed entry pt seen earlier today Afebrile WBC going down Antibiotics: azithro fluconazol vanco cefazoli Allergies/Adverse Reactions: Allergies No Known Allergies Allergy (Verified 11/29/17 12:39) Objective Vital Signs 12/02/17 23:55 12/03/17 00:00 12/03/17 03:51 Temperature 98.6 F Pulse Rate 86 97 H 93 H Respiratory Rate 20 18 20 Blood Pressure 141/76 H Pulse Oximetry 97 12/03/17 04:00 12/03/17 07:42 12/03/17 08:00 Temperature 97.9 F 97.8 F Pulse Rate 74 69 74 Respiratory Rate 18 20 16 Blood Pressure 122/58 L 154/74 H Pulse Oximetry 97 96 97 12/03/17 10:55 12/03/17 12:00 12/03/17 15:31 Temperature 97.5 F L Pulse Rate 85 90 97 H Respiratory Rate 20 16 16 Blood Pressure 128/67 Pulse Oximetry 97 97 12/03/17 16:00 12/03/17 20:00 Temperature 98.4 F 97.9 F Pulse Rate 85 87 Respiratory Rate 16 18 Blood Pressure 154/73 H 152/80 H Pulse Oximetry 97 96 Intake & Output 12/03/17 12/03/17 12/04/17 06:59 18:59 06:59 Intake Total 725.0 / 725.0 350 / 350 362.5 / 362.5 Output Total 800 / 800 1100 / 1100 Balance -75.0 / -75.0 -750 / -750 362.5 / 362.5 Weight 41.8 kg Intake: IV 725.0 / 725.0 350 / 350 362.5 / 362.5 Azithromycin Inj 500 MG In NS 250 / 250 Inj 250 ML @ 250 mls/hr IV.SIG Q24H JUANITA Rx#:[id number] Vancomycin Inj 1,250 MG In NS 525.0 / 525.0 262.5 / 262.5 Inj 250 ML @ 250 mls/hr IV.SIG Q12H JUANITA Rx#:[id number] Ancef Inj 2,000 MG In NS Inj 80 200 / 200 100 / 100 100 / 100 ML @ 200 mls/hr IV.SIG Q8H JUANITA Rx#:[id number] Output: Urine 800 / 800 1100 / 1100 Other: # Voids 1 Date of Last Bowel Movement 12/02/17 12/03/17 12/03/17 # Bowel Movements 1 2 11/30/17 16:04 Blood - Peripheral Aerobic Blood Culture - Preliminary No growth in 3 days 11/30/17 16:04 Blood - Peripheral Anaerobic Blood Culture - Preliminary No growth in 3 days 11/30/17 16:00 Blood - Peripheral Aerobic Blood Culture - Preliminary No growth in 3 days 11/30/17 16:00 Blood - Peripheral Anaerobic Blood Culture - Preliminary No growth in 3 days 11/29/17 12:35 Blood - Peripheral Aerobic Blood Culture - Final Staphylococcus aureus Staphylococcus coag negative 11/29/17 12:35 Blood - Peripheral Anaerobic Blood Culture - Preliminary gram positive cocci 11/30/17 13:16 Bronchial Washings - Left Lower Lobe Acid Fast Bacilli Smear - Final No acid fast bacilli seen 11/30/17 13:16 Bronchial Washings - Left Lower Lobe Mycobacterial Culture - Pending 11/30/17 13:16 Bronchial - Left Lower Lobe Gram Stain - Final 11/30/17 13:16 Bronchial - Left Lower Lobe Bronchial Culture - Final Staphylococcus aureus 11/29/17 12:30 Throat Group A Streptococcus Screen/Cult - Final No Beta Streptococci isolated. 11/29/17 12:20 Blood - Peripheral Aerobic Blood Culture - Final Staphylococcus coag negative 11/29/17 12:20 Blood - Peripheral Anaerobic Blood Culture - Final Staphylococcus coag negative 11/30/17 13:16 Bronchial Washings - Left Lower Lobe Fungal Smear - Final No fungal elements seen 11/30/17 13:16 Bronchial Washings - Left Lower Lobe Fungal Culture - Pending 11/29/17 09:40 Catheterized Urine Urine Culture - Final [place] albicans Enterococcus faecalis Lab - Hematology Results 12/02/17 06:06 WBC 11.6 H RBC 3.59 L Hgb 11.1 L Hct 32.4 L MCV 90.2 MCH 31.0 MCHC 34.4 RDW 13.9 Plt Count 427 MPV 8.4 Neut % (Auto) 78.5 H Lymph % (Auto) 13.9 [place] % (Auto) 6.7 Eos % (Auto) 0.5 Baso % (Auto) 0.4 Neut # (Auto) 9.1 H Lymph # (Auto) 1.6 [place] # (Auto) 0.8 Eos # (Auto) 0.1 Baso # (Auto) 0.0 WBC Differential . Differential Comment Auto diff final Lab - Chemistry Results 12/02/17 05:35 Creatinine 0.34 L Estimated GFR Greater than 89 Imaging: ITS Impressions Head CT 11/29/17 00:00 CONCLUSION: 1. Prior right-sided temporoparietal craniectomy.. 2. Mild diffuse ventriculomegaly slightly out of proportion to degree of atrophy. Clinical correlation for normal pressure hydrocephalus is recommended. 3. Limited evaluation for acute hemorrhage due to recent contrast administration. However, there is no evidence for significant intra or extra- axial blood products. Chest CTA 11/29/17 10:08 CONCLUSION: 1. No CT evidence for pulmonary artery embolism. 2. Focal filling defect in the distal left mainstem bronchus with opacification of the central segmental branches most prominently of the left lower lobe. This is a new finding since previous exam. Endobronchial mass should be excluded. 3. Decreased opacification of the left pulmonary veins extending to the junction of the left atrium. Although nonspecific, this may be related to reactive decreased perfusion of the left lung due to decreased aeration. 4. Minimal bibasilar atelectasis. Chest X-Ray 12/03/17 09:27 CONCLUSION: Mild left base infiltrate Physical Exam: GENERAL: NAD SKIN: Warm and dry. No rash HEAD: Atraumatic. Normocephalic. R parietal deformity cw craniectomy EYES: Pupils equal and round. No scleral icterus. No injection or drainage. ENT: No nasal bleeding or discharge. Mucous membranes pink and moist. NECK: Trachea midline. No JVD. CARDIOVASCULAR: Regular rate and rhythm. RESPIRATORY: No accessory muscle use. Clear to auscultation. Breath sounds equal bilaterally. GASTROINTESTINAL: Abdomen soft, non-tender, nondistended. Hepatic and splenic margins not palpable. MUSCULOSKELETAL: Extremities without clubbing, cyanosis, or edema. No obvious deformities. NEUROLOGICAL: Awake. Non following commands. Non verbal Spastic R heiplegia PSYCHIATRIC: unable to assess Assessment and Plan - Plan MSSA PNA with mucus plugs MSSA bacteremia, probably 2/2 PNA coag neg staph bacteremia, diff morphologies, doubt clin significance ? UTI vs bacteriuria. Not a good urine specimen Funguria. Doubt cli significance dc vancomycin cont ANcef repeat UA, C+S if indicated dw Dr Coates
[2017-12-04] MEDS: Baclofen 10 MG Tablet PO SCH ×6 (02:00→21:09)
[2017-12-04] MEDS: ceFAZolin Inj 2,000 MG in Sodium Chlor 0.9% Inj 80 ML IV.SIG SCH ×3 (05:12→20:44)
[2017-12-04] MEDS ORDERED: Pharmacy Ordered Lab Info OTHER ONE (05:45)
[2017-12-04 06:08] LABS: Glomerular Filtration Rate Greater Than 89 mL/min (>89)
[2017-12-04] MEDS: Senna/Docusate Sodium 8.6/50 MG Tablet PO SCH ×2 (10:14→22:00)
[2017-12-04] MEDS: Famotidine 20 MG Tablet PO SCH (10:14)
[2017-12-04] MEDS: guaiFENesin 600 MG ER Tablet PO SCH ×2 (10:14→20:56)
[2017-12-04] MEDS: Amantadine Liq 100 MG/10 ML UDC PO SCH ×2 (10:14→20:56)
[2017-12-04] MEDS: Fluconazole 100 MG Tablet G-TUBE SCH (10:14)
[2017-12-04] MEDS: Cetirizine 10 MG/10 ML UDC PO SCH (10:15)
[2017-12-04] MEDS ORDERED: Pantoprazole Inj 80 MG in Sodium Chlor 0.9% Inj 35 ML IV.SIG ONE (11:00)
--- NOTE | 2017-12-04 11:24 | XR ---
EXAM DATE: 12/04/2017 11:16 AM EDT AGE/SEX: 62 years / Female INDICATIONS: Abdominal pain. CLINICAL DATA: This is the patient's initial encounter. Patient reports that signs and symptoms have been present for 1 day and indicates a pain score of Nonresponsive. MEDICAL/SURGICAL HISTORY: . Cerebrovascular disease. Lymphoma. stroke Craniotomy. . Peg tube. . COMPARISON: No prior exams available for comparison. FINDINGS: Air is seen throughout the colon. Single loop of air-filled minimally distended small bowel in the m idabdomen. There is an NGT in place. No gross free air or pneumatosis. [facility] from [facility] IV contrast administration. There is an IVC filter in place. Osseous structures are gr ossly intact. CONCLUSION: 1. Single loop of nonspecific minimally distended air-filled small bowel in the mid abdomen. This ma y reflect developing ileus. Electronically signed by: Juan José Godinez MD 12/04/2017 11:23 AM EDT
--- NOTE | 2017-12-04 11:26 | P.PN ---
Subjective Interval history: Nursing denies any deterioration since last night. However this morning nursing reports that the patient's family members in the room right now, reported the patient was guarding her abdomen and apparent pain. Then shortly afterward nursing witnessed about 20-30 mL's of bright red blood per rectum. Family members as the patient was evaluated by construction management assistant sometime within the past year or so, had a bleeding ulcer that required cauterization. Does not know the name of the construction management assistant Physical Exam Vital signs: Vital Signs 12/03/17 12:00 12/03/17 15:31 12/03/17 16:00 Temperature 97.5 F L 98.4 F Pulse Rate 90 97 H 85 Respiratory Rate 16 16 16 Blood Pressure 128/67 154/73 H Pulse Oximetry 97 97 97 12/03/17 20:00 12/04/17 00:00 12/04/17 04:00 Temperature 97.9 F 98.1 F 98.0 F Pulse Rate 87 92 H 74 Respiratory Rate 18 16 14 Blood Pressure 152/80 H 142/79 H 139/74 Pulse Oximetry 96 96 95 12/04/17 08:00 12/04/17 09:50 Temperature 97.9 F Pulse Rate 80 Respiratory Rate 18 Blood Pressure 154/85 H Pulse Oximetry 96 96 Intake & Output 12/03/17 12/04/17 12/04/17 18:59 06:59 18:59 Intake Total 350 / 350 582.5 / 582.5 Output Total 1100 / 1100 Balance -750 / -750 582.5 / 582.5 Weight 41.6 kg Intake: IV 350 / 350 462.5 / 462.5 Azithromycin Inj 500 MG In NS 250 / 250 Inj 250 ML @ 250 mls/hr IV.SIG Q24H JUANITA Rx#:[id number] Vancomycin Inj 1,250 MG In NS 262.5 / 262.5 Inj 250 ML @ 250 mls/hr IV.SIG Q12H JUANITA Rx#:[id number] Ancef Inj 2,000 MG In NS Inj 80 100 / 100 200 / 200 ML @ 200 mls/hr IV.SIG Q8H JUANITA Rx#:[id number] Oral 120 / 120 Output: Urine 1100 / 1100 Other: # Voids 1 Date of Last Bowel Movement 12/03/17 12/03/17 # Bowel Movements 2 Narrative: Minimally distended abdomen, soft otherwise, no abdoul tenderness to palpation when I push Clear lungs bilaterally, unlabored breathing Heart sounds regular rate and rhythm, no murmurs Eye exam the patient still and I see no melena Results - Labs CBC & Chem 7: 12/02/17 06:06 12/04/17 05:30 Laboratory Results - last 24 hr 12/04/17 05:30 Creatinine 0.40 L Estimated GFR Greater than 89 Vancomycin Trough 14.0 H Microbiology 11/30/17 16:04 Blood - Peripheral Aerobic Blood Culture - Preliminary No growth in 4 days 11/30/17 16:04 Blood - Peripheral Anaerobic Blood Culture - Preliminary No growth in 4 days 11/30/17 16:00 Blood - Peripheral Aerobic Blood Culture - Preliminary No growth in 4 days 11/30/17 16:00 Blood - Peripheral Anaerobic Blood Culture - Preliminary No growth in 4 days 11/29/17 12:35 Blood - Peripheral Aerobic Blood Culture - Final Staphylococcus aureus Staphylococcus coag negative 11/29/17 12:35 Blood - Peripheral Anaerobic Blood Culture - Final Staphylococcus coag negative - Procedures 11/30- bronchoscopy Assessment and Plan - Assessment (1) Altered mental status Code(s): R41.82 - Altered mental status, unspecified Status: Acute (2) Lung mass Code(s): R91.8 - Other nonspecific abnormal finding of lung field Status: Acute (3) Acute UTI Code(s): N39.0 - Urinary tract infection, site not specified Status: Acute (4) Hypoxia Code(s): R09.02 - Hypoxemia Status: Acute (5) H/O craniotomy Code(s): Z98.890 - Other specified postprocedural states Status: Chronic (6) History of intracranial hemorrhage Code(s): Z86.79 - Personal history of other diseases of the circulatory system Status: Chronic - Plan This is a 62-year-old CF with 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 Patient is being admitted for IP mgmt of AMS with agitation, UTI, and Hypoxia requiring NC. Per CT Chest, focal filling defect in the distal left mainstem bronchus with opacification of the central segmental branches most prominently of the left lower lobe, endobronchial mass should be excluded. Pulmonary has been consulted to assist with management. Is now status post bronchoscopy with clearing of mucous plugging w/ no mass noted, patient has been weaned down to room air and is on antibiotics streamlined by infectious disease. On 12/04 patient had bright red blood per rectum, GI has been consulted. Bright red blood per rectum -possibly ulcer given prior hx of such, starting Protonix drip, consulting GI, ordering stat H&H and KUB to r/o free air. Holding pts bolus tube feeds. Pneumonia Clinically resolved. Antibiotics have been de-escalated now down to just Ancef. CT Chest with opacification of the central segmental branches most prominent in the left lower lung, cannot exclude endobronchial mass Pulmonology - Dr. delatorre ff Sepsis- source- pulmonary + UTI Gram + sepsis bacteremia as well as candiduria and bacteriuria, Leukocytosis - improving Continue ancef and diflucan Elevated LFT's Possible stress reaction secondary to infection Hepatic panel is negative chronic cognitive impairment now at baseline We will not resume trazodone unless needed Hx of Subdural Hematoma and intraparenchymal hemorrhage, status post decompressive craniotomy with expressive aphasia and right hemiparesis Patient is known to Dr. Campbell, CT Head: Prior right-sided temporoparietal craniectomy. Mild diffuse ventriculomegaly slightly out of proportion to degree of atrophy. Clinical correlation for normal pressure hydrocephalus is recommended. Limited evaluation for acute hemorrhage due to recent contrast administration. However, there is no evidence for significant intra or extra-axial blood products. Hx of PEG hold tube feedings in light of GI bleed Per patient uses Osteolite at home, 300mls/4x daily Hx of CVA residual right sided weakness PT Cont. home Baclofen, Amantadine, and Modafinil Hx of Hypertension Blood pressure stable reports that he has not been giving her home meds of Lisinopril and Metoprolol due to low BP's Will resume if needed 10. GERD Cont. Famotidine 11. DVT PPX: SCD's
--- NOTE | 2017-12-04 11:33 | P.PNPL ---
Subjective Interval history: No events overnight. On room air oxygen. Physical Exam Vital signs: Vital Signs 12/03/17 12:00 12/03/17 15:31 12/03/17 16:00 Temperature 97.5 F L 98.4 F Pulse Rate 90 97 H 85 Respiratory Rate 16 16 16 Blood Pressure 128/67 154/73 H Pulse Oximetry 97 97 97 12/03/17 20:00 12/04/17 00:00 12/04/17 04:00 Temperature 97.9 F 98.1 F 98.0 F Pulse Rate 87 92 H 74 Respiratory Rate 18 16 14 Blood Pressure 152/80 H 142/79 H 139/74 Pulse Oximetry 96 96 95 12/04/17 08:00 12/04/17 09:50 Temperature 97.9 F Pulse Rate 80 Respiratory Rate 18 Blood Pressure 154/85 H Pulse Oximetry 96 96 Intake & Output 12/03/17 12/04/17 12/04/17 18:59 06:59 18:59 Intake Total 350 / 350 582.5 / 582.5 Output Total 1100 / 1100 Balance -750 / -750 582.5 / 582.5 Weight 41.6 kg Intake: IV 350 / 350 462.5 / 462.5 Azithromycin Inj 500 MG In NS 250 / 250 Inj 250 ML @ 250 mls/hr IV.SIG Q24H [facility] Rx#:[id number] Vancomycin Inj 1,250 MG In NS 262.5 / 262.5 Inj 250 ML @ 250 mls/hr IV.SIG Q12H [facility] Rx#:[id number] Ancef Inj 2,000 MG In NS Inj 80 100 / 100 200 / 200 ML @ 200 mls/hr IV.SIG Q8H [facility] Rx#:[id number] Oral 120 / 120 Output: Urine 1100 / 1100 Other: # Voids 1 Date of Last Bowel Movement 12/03/17 12/03/17 # Bowel Movements 2 - Constitutional no acute distress - Routine HEENT Exam Head: Present: normocephalic, atraumatic Eye: Present: EOMI, PERRL, normal accommodation, conjunctivae pink ENT: Present: mucous membranes moist - Routine Neck Exam Present: supple, full ROM, trachea midline - Routine Respiratory Exam Present: CTA bilaterally - Routine Cardiovascular Exam Present: RRR, S1, S2 - Routine Abdominal Exam Present: soft, normoactive bowel sounds - Routine Skin Exam Present: intact, dry - Routine Neurological Exam Present: altered mental status Assessment and Plan - Plan 1. Respiratory insufficiency. 2. Filling defect in the left main stem bronchus. 2nd mucous plugs 2. ? COPD, hx tobacco abuse 3. Leukocytosis. 4. Coag neg staph bacteremia 5. UTI 6. History of subdural hematoma and IPH status post decompressive craniotomy. 7. Previous IVC filter placement in August. 8. Chronic respiratory failure, status post tracheostomy decannulated in October. 9. s/p PEG tube placement 11. History CVA 12. Hypertension. Plan Oxygen PRN maintain sats > 92%. Bronchodilators , CXR 12/03: Mild left base infiltrate s/p bronch with BAL 11/30 showed mucous plugs in trach EMMANUEL/LLL suctioned to clear, no evidence of endobronchial lesions Cytology: Benign bronchial epithelial cells in background of lymphoid cells, histocytes, and neutrophils Follow up on BAL: Coag negative staph bacteremia Will need repeat CT chest in 2-4 weeks from discharge. 11/29 BC: [facility] 2/4 bottles. Follow up on BC from 11/30-NGTD 11/29 Urine cx: [place], enterococcus Abx per ID_ On Ancef and Diflucan,monitor for signs of infection( fever and WBC) . ID is following- Dr. [facility] A strep throat is negative Nasal washing screening for influenza is negative. Monitor neuro status Nutrition support - on bolus tube feeds (Osmolite) Continue treatment plan
[2017-12-04 11:55] LABS: Baso % (Auto) 0.4 % (0.0-2.0); Eos # (Auto) 0.1 th/mm3 (0.0-0.4); Eos % (Auto) 0.5 % (0.0-4.0); Hematocrit 33.4 % (35.0-46.0); Hemoglobin 11.5 gm/dL (11.6-15.3); Lymph # (Auto) 1.2 th/mm3 (1.0-4.8); Lymph % (Auto) 9.6 % (9.0-44.0); Mean Corpuscular HGB Conc 34.6 % (32.0-36.0); Mean Corpuscular Hemoglobin 31.3 pg (27.0-34.0); Mean Corpuscular Volume 90.7 fL (80.0-100.0); Mean Platelet Volume 7.7 fL (7.0-11.0); Mono # (Auto) 0.9 th/mm3 (0.0-0.9); Mono % (Auto) 6.6 % (0.0-8.0); Neut # (Auto) 10.7 th/mm3 (1.8-7.7); Neut % (Auto) 82.9 % (16.0-70.0); Platelet Count 507 th/mm3 (150-450); Red Blood Count 3.68 mil/mm3 (4.00-5.30); Red Cell Distribution Width 14.1 % (11.6-17.2); White Blood Count 12.9 th/mm3 (4.0-11.0)
[2017-12-04] MEDS: Pantoprazole Inj 80 MG in Sodium Chlor 0.9% Inj 100 ML IV.CONT SCH ×2 (12:54→22:01)
--- NOTE | 2017-12-04 14:40 | P.CONGI ---
History of Present Illness Consult date: 12/05/07 Consult reason: Bright red rectal bleeding Chief complaint: UTI, Hypoxia History of Present Illness: This is a frail 62-year-old female who came into the hospital on 11/29/2017 with altered mental status and agitation patient was also complaining of lower abdominal pain. On 12/04/2017 patient was noted to have some bright red rectal bleeding after large hard formed bowel movement and large hard formed green bowel movement surrounded with maroon colored blood. Patient does have a history of constipation possibly related to her chronic pain management according to her who is her spokesperson at this time. According to the record patient has significant history of oral cancer, CVA, subdural hematoma trach which is currently been removed and PEG tube placement on 2017. According to the patient also has history of EtOH usage, bleeding gastric ulcers and history of hemorrhoids. Gastroenterology has been consulted to assist in her care and symptom management. With the record that patient has been on [facility] approximately 2 weeks ago. Currently patient has flat affect, but no obvious facial grimace to any abdominal pain. Patient has no current nausea or vomiting and no known dyspepsia. Abdominal x-rays initially noted possible developing ileus. Review of Systems All other systems reviewed negative except as stated in HPI PMFSH - History History Provided By: Family Member (), Surveillance Dual Rate Officer / EMT - Medical History Medical History: Medical History (Last Reviewed 12/03/17 @ 08:24 by [facility]) Bone flap displacement Lymphoma CVA (cerebrovascular accident) - Family History Family History: Family History (Last Updated 12/02/17 @ 06:22 by Michelle Weir MD) Other Family history unobtainable - Tobacco History Second Hand Smoke Exposure: No Tobacco Use In Past 30 Days: No Smoking Status: Current every day smoker Tobacco Type: Cigarettes - Alcohol History How Often Do You Have a Drink Containing Alcohol: Never - Substance Use History Substance History: No History of Abuse - Travel History Recent Travel Out of the Country Within the Last 8 Weeks: No - Immunization History Tetanus Immunization: Unsure Medications and Allergies Active Medications: Active Medications Acetaminophen (Tylenol) 650 mg PO Q4H PRN PRN Reason: Temp > 100.4 Al Hydroxide/Mg Hydroxide (Milk Of Magnesia Liq) 30 ml PO Q12H PRN PRN Reason: Mild Constipation Albuterol (Duoneb Neb (Prn)) 1 ampul NEB Q2HR NEB PRN PRN Reason: DYSPNEA Albuterol (Duoneb Neb (Michelle)) 1 ampul NEB Q4HR NEB [facility] Amantadine HCl (Symmetrel Liq) 150 mg PO BID [facility] Last Admin: 12/04/17 10:14 Dose: 150 mg Baclofen (Lioresal) 10 mg PO Q4H [facility] Last Admin: 12/04/17 10:15 Dose: 10 mg Bisacodyl (Dulcolax Supp) 10 mg RECTAL DAILY PRN PRN Reason: SEVERE CONSITIPATION Cetirizine HCl (Zyrtec Liq) 10 mg PO DAILY [facility] Last Admin: 12/04/17 10:15 Dose: 10 mg Cyanocobalamin (Vitamin B12) 1,000 mcg PO DAILY [facility] Last Admin: 12/04/17 10:14 Dose: 1,000 mcg Famotidine (Pepcid) 20 mg PO DAILY [facility] Last Admin: 12/04/17 10:14 Dose: 20 mg Fluconazole (Diflucan) 100 mg G-TUBE DAILY [facility] Last Admin: 12/04/17 10:14 Dose: 100 mg Guaifenesin (Mucinex Er) 600 mg PO BID [facility] Last Admin: 12/04/17 10:14 Dose: 600 mg Hydrocortisone Acetate (Hydrocortisone 1% Cream) 1 applicatio TOPICAL QID [facility] Last Admin: 12/04/17 12:54 Dose: 1 applicatio Cefazolin Sodium 2,000 mg/ (Sodium Chloride) 100 mls @ 200 mls/hr IV.SIG Q8H [facility] Last Infusion: 12/04/17 12:54 Dose: Infused Pantoprazole Sodium 80 mg/ (Sodium Chloride) 100 mls @ 10 mls/hr IV.CONT Q10H [facility] Last Admin: 12/04/17 12:54 Dose: 10 mls/hr Lactulose (Lactulose Liq) 30 ml PO DAILY PRN PRN Reason: SEVERE CONSITIPATION Miscellaneous (Pill Splitter) 1 each OTHER UNSCH PRN PRN Reason: PILL SPIT Modafinil (Provigil) 100 mg PO DAILY@2000 [facility] Last Admin: 12/03/17 20:20 Dose: 100 mg Ondansetron HCl (Zofran Inj) 4 mg IV.PUSH Q6H PRN PRN Reason: NAUSEA OR VOMITING Senna/Docusate Sodium (Maral-Colace) 1 tab PO BID [facility] Last Admin: 12/04/17 10:14 Dose: 1 tab Sennosides (Senokot) 17.2 mg PO Q12H PRN PRN Reason: Moderate Constipation Sodium Chloride (Ns Flush) 2 ml IV.FLUSH UNSCH PRN PRN Reason: FLUSH AFTER USING IV ACCESS Last Admin: 11/29/17 11:15 Dose: 2 ml Allergies Allergy/AdvReac Type Severity Reaction Status Date / Time No Known Allergies Allergy Verified 11/29/17 12:39 Home Medications Medication Instructions Recorded Confirmed Type amantadine HCl 150 mg PO BID 11/29/17 11/29/17 History cyanocobalamin (vitamin B-12) 1,000 mcg PO DAILY 11/29/17 11/29/17 History famotidine 20 mg PO DAILY 11/29/17 11/29/17 History modafinil 100 mg PO DAILY 11/29/17 11/29/17 History Exam Vital signs: Vital Signs 12/03/17 15:31 12/03/17 16:00 12/03/17 20:00 Temperature 98.4 F 97.9 F Pulse Rate 97 H 85 87 Respiratory Rate 16 16 18 Blood Pressure 154/73 H 152/80 H Pulse Oximetry 97 97 96 12/04/17 00:00 12/04/17 04:00 12/04/17 08:00 Temperature 98.1 F 98.0 F 97.9 F Pulse Rate 92 H 74 80 Respiratory Rate 16 14 18 Blood Pressure 142/79 H 139/74 154/85 H Pulse Oximetry 96 95 96 12/04/17 09:50 12/04/17 12:00 Temperature 97.7 F Pulse Rate 80 Respiratory Rate 18 Blood Pressure 144/77 H Pulse Oximetry 96 97 Intake & Output 12/03/17 12/04/17 12/04/17 18:59 06:59 18:59 Intake Total 350 / 350 582.5 / 582.5 135 / 135 Output Total 1100 / 1100 Balance -750 / -750 582.5 / 582.5 135 / 135 Weight 41.6 kg Intake: IV 350 / 350 462.5 / 462.5 135 / 135 Azithromycin Inj 500 MG In NS 250 / 250 Inj 250 ML @ 250 mls/hr IV.SIG Q24H [facility] Rx#:[id number] Protonix Inj 80 MG In NS Inj 35 35 / 35 ML @ 420 mls/hr IV.SIG BOLUS [facility] Rx#:[id number] Vancomycin Inj 1,250 MG In NS 262.5 / 262.5 Inj 250 ML @ 250 mls/hr IV.SIG Q12H [facility] Rx#:[id number] Ancef Inj 2,000 MG In NS Inj 80 100 / 100 200 / 200 100 / 100 ML @ 200 mls/hr IV.SIG Q8H [facility] Rx#:[id number] Oral 120 / 120 Output: Urine 1100 / 1100 Other: # Voids 1 Date of Last Bowel Movement 12/03/17 12/03/17 12/04/17 # Bowel Movements 2 - Constitutional no acute distress, cachectic, disheveled, obtunded - Routine HEENT Exam Head: Present: normocephalic ENT: Present: mucous membranes dry - Routine Respiratory Exam Present: accessory muscle use (No obvious shortness of breath at rest) - Routine Cardiovascular Exam Present: S1, S2 - Routine Abdominal Exam Present: soft (Flat, no obvious distention no obvious abdominal pain, very soft bowel sounds) - Routine Skin Exam Present: pallor - Routine Neurological Exam Present: altered mental status (Eyes open nonverbal, ) Results - Labs CBC & Chem 7: 12/04/17 11:25 12/04/17 05:30 Labs: Laboratory Results - last 24 hr 12/04/17 12/04/17 05:30 11:25 WBC 12.9 H RBC 3.68 L Hgb 11.5 L Hct 33.4 L MCV 90.7 MCH 31.3 MCHC 34.6 RDW 14.1 Plt Count 507 H MPV 7.7 Neut % (Auto) 82.9 H Lymph % (Auto) 9.6 [place] % (Auto) 6.6 Eos % (Auto) 0.5 Baso % (Auto) 0.4 Neut # (Auto) 10.7 H Lymph # (Auto) 1.2 [place] # (Auto) 0.9 Eos # (Auto) 0.1 Baso # (Auto) 0.0 WBC Differential . Differential Comment Auto diff final Creatinine 0.40 L Estimated GFR Greater than 89 Vancomycin Trough 14.0 H - Imaging Impressions Abdomen X-Ray 12/04/17 10:40 CONCLUSION: 1. Single loop of nonspecific minimally distended air-filled small bowel in the mid abdomen. This may reflect developing ileus. Assessment and Plan - Plan 62-year-old female who came into the hospital on 11/29/2017 with altered mental status and agitation patient was also complaining of lower abdominal pain. On 12/04/2017 patient was noted to have some bright red rectal bleeding after large hard formed bowel movement and large hard formed green bowel movement surrounded with maroon colored blood. Patient does have a history of constipation possibly related to her chronic pain management according to her who is her spokesperson at this time. According to the record patient has significant history of oral cancer, CVA, subdural hematoma trach which is currently been removed and PEG tube placement on 09/04/2017. According to the patient also has history of EtOH usage, bleeding gastric ulcers and history of hemorrhoids. Gastroenterology has been consulted to assist in her care and symptom management. With the record that patient has been on [facility] approximately 2 weeks ago. Currently patient has flat affect, but no obvious facial grimace to any abdominal pain. Patient has no current nausea or vomiting and no known dyspepsia. Abdominal x-rays initially noted possible developing ileus. Maroon, and some bright red rectal bleeding surrounding hard formed stool on History of constipation appears to be acute on chronic, patient showed possible ileus, but this could have been related to constipation, and large stool expelled today on 12/04/2017, history of chronic pain management meds, possibly related to her constipation PEG tube placed on 09/04/2017, last colonoscopy approximately 2010 normal findings according to the History of EtOH abuse, gastric ulcers, CVA, oral squamous cell CA, trach and recent rehab stay Family history Father of liver cancer unknown age Anemia, current hemoglobin 11.5 appears to be due to acute on chronic disease Leukocytosis current WBC count 12.9 unspecified, currently on no steroids Rule out rectal ulcers with CT findings, will continue to evaluate source of lower GI bleeding. Plan Diet changed to clear liquid via a gastric tube CT of the abdomen pelvis to rule out ischemic colitis and rectal ulcers Further recommendations to follow after CT scan review Pepcid PPI drip, maintain for now Zofran as needed Diflucan, continue for now Aggressive bowel regimen Evaluate bowel sounds and KUB as needed Supportive care Patient was seen per myself and Dr. Aragon, note was written on his behalf
--- NOTE | 2017-12-04 18:41 | CT ---
EXAM DATE: 12/04/2017 6:23 PM EDT AGE/SEX: 62 years / Female INDICATIONS: Abdomen pain. CLINICAL DATA: This is the patient's initial encounter. Patient reports that signs and symptoms have been present for 1 day and indicates a pain score of Nonresponsive. MEDICAL/SURGICAL HISTORY: Cerebrovascular disease. Lymphoma. None. ORAL CONTRAST: No oral contrast ingested. RADIATION DOSE: 5.23 CTDI (mGy) COMPARISON: No prior exams available for comparison. TECHNIQUE: Multiple contiguous axial images were obtained through the abdomen and pelvis following b olus infusion of 85 ml Omnipaque 350 (iohexol) nonionic water-soluble contrast as a single exam dos e. No oral contrast ingested. Using automated exposure control and adjustment of the mA and/or kV ac cording to patient size, radiation dose was kept as low as reasonably achievable to obtain optimal di agnostic quality images. DICOM format image data is available electronically for review and comparis on. FINDINGS: There is subsegmental airspace disease at the bases, slightly increased from CT chest second. No sign ificant pleural effusion on the right. Trace left pleural fluid. No acute findings in the liver, spleen, adrenals, left kidney or pancreas. Tiny nonobstructing 2 mm c alculus lower pole right kidney and mid pole right kidney. There is mild constipation. Mild ileus. No pelvic mass or free fluid. No acute bony abnormalities. Inferior vena cava filter is present. CONCLUSION: 1. No acute findings within the abdomen to explain abdominal pain. Increase in subsegmental basilar airspace disease in the lungs since November 29. 2. Mild constipation. Mild ileus. No evidence for obstruction. 3. Postoperative PEG tube placement and inferior vena cava filter placement. 4. Tiny nonobstructing right renal calculus. Mild fatty liver. Electronically signed by: Eliu Roa MD 12/04/2017 6:40 PM EDT
[2017-12-04] MEDS: Modafinil 200 MG Tablet PO SCH (20:55)
[2017-12-05] MEDS: Pantoprazole Inj 80 MG in Sodium Chlor 0.9% Inj 100 ML IV.CONT SCH ×4 (00:59→16:15)
[2017-12-05] MEDS: Baclofen 10 MG Tablet PO SCH ×6 (01:03→22:23)
[2017-12-05] MEDS: ceFAZolin Inj 2,000 MG in Sodium Chlor 0.9% Inj 80 ML IV.SIG SCH ×3 (04:36→21:00)
[2017-12-05 07:02] LABS: Baso % (Auto) 0.5 % (0.0-2.0); Eos # (Auto) 0.1 th/mm3 (0.0-0.4); Eos % (Auto) 1.4 % (0.0-4.0); Hematocrit 34.7 % (35.0-46.0); Hemoglobin 11.8 gm/dL (11.6-15.3); Lymph % (Auto) 23.7 % (9.0-44.0); Mean Corpuscular HGB Conc 34.2 % (32.0-36.0); Mean Corpuscular Hemoglobin 31.4 pg (27.0-34.0); Mean Corpuscular Volume 91.9 fL (80.0-100.0); Mean Platelet Volume 7.5 fL (7.0-11.0); Mono # (Auto) 0.8 th/mm3 (0.0-0.9); Mono % (Auto) 9.4 % (0.0-8.0); Neut # (Auto) 5.5 th/mm3 (1.8-7.7); Platelet Count 496 th/mm3 (150-450); Red Blood Count 3.77 mil/mm3 (4.00-5.30); Red Cell Distribution Width 14.1 % (11.6-17.2); White Blood Count 8.4 th/mm3 (4.0-11.0)
[2017-12-05] MEDS: Amantadine Liq 100 MG/10 ML UDC PO SCH ×2 (08:58→22:23)
[2017-12-05] MEDS: Fluconazole 100 MG Tablet G-TUBE SCH (08:58)
[2017-12-05] MEDS: guaiFENesin 600 MG ER Tablet PO SCH ×2 (08:58→22:23)
[2017-12-05] MEDS: Cetirizine 10 MG/10 ML UDC PO SCH (08:58)
[2017-12-05] MEDS: Senna/Docusate Sodium 8.6/50 MG Tablet PO SCH ×2 (08:58→22:23)
[2017-12-05] MEDS: Famotidine 20 MG Tablet PO SCH (08:58)
--- NOTE | 2017-12-05 11:37 | XR ---
EXAM DATE: 12/05/2017 11:29 AM EDT AGE/SEX: 62 years / Female INDICATIONS: Constipation CLINICAL DATA: This is the patient's subsequent encounter. Patient reports that signs and symptoms h ave been present for 1 week and indicates a pain score of Nonresponsive. MEDICAL/SURGICAL HISTORY: . . Cerebrovascular disease. Lymphoma. Stroke . Craniotomy. . Peg t ube. . [place] [facility] [place] 12/04/2017. . FINDINGS: Single frontal view of the abdomen demonstrates a nonobstructive bowel gas pattern. High density in the pelvis may represent oral contrast material within the rectum or excreted contrast in the urinary bladder. No calcified mass was present on the prior CT. G-tube overlies the stomach in the left uppe r quadrant. No organomegaly is present. Bones demonstrate no acute finding. IVC filter is present. CONCLUSION: No acute abdominal abnormality is identified. There may be stool within the rectum but otherwise a si gnificant amount of stool is not appreciated within the colon. Electronically signed by: Juan F Gibson MD 12/05/2017 11:36 AM EDT
--- NOTE | 2017-12-05 11:38 | P.PNPL ---
Subjective Interval history: No events overnight. Afebrile. Physical Exam Vital signs: Vital Signs 12/04/17 12:00 12/04/17 16:00 12/04/17 16:52 Temperature 97.7 F 98.1 F Pulse Rate 80 87 72 Respiratory Rate 18 16 18 Blood Pressure 144/77 H 141/76 H Pulse Oximetry 97 95 12/04/17 20:00 12/04/17 20:25 12/04/17 23:21 Temperature 97.8 F Pulse Rate 82 100 H 77 Respiratory Rate 14 18 18 Blood Pressure 132/77 Pulse Oximetry 97 96 12/05/17 00:00 12/05/17 03:08 12/05/17 04:00 Temperature 97.7 F 97.7 F Pulse Rate 80 72 77 Respiratory Rate 16 16 14 Blood Pressure 121/68 102/63 Pulse Oximetry 99 98 12/05/17 08:00 Temperature 97.8 F Pulse Rate 85 Respiratory Rate 16 Blood Pressure 131/67 Pulse Oximetry 96 Intake & Output 12/04/17 12/05/17 12/05/17 18:59 06:59 18:59 Intake Total 135 / 135 300 / 300 Output Total 600 / 600 Balance 135 / 135 -300 / -300 Weight 41.6 kg Intake: IV 135 / 135 300 / 300 Protonix Inj 80 MG In NS Inj 100 / 100 100 ML @ 10 mls/hr IV.CONT Q10H [facility] Rx#:[id number] Protonix Inj 80 MG In NS Inj 35 35 / 35 ML @ 420 mls/hr IV.SIG BOLUS ONE Rx#:[id number] Ancef Inj 2,000 MG In NS Inj 80 100 / 100 200 / 200 ML @ 200 mls/hr IV.SIG Q8H [facility] Rx#:[id number] Oral 0 / 0 Output: Urine 600 / 600 Other: # Urine Diapers 5 Date of Last Bowel Movement 12/04/17 12/04/17 # Incontinent Bowel Movements 3 - Constitutional no acute distress - Routine HEENT Exam Head: Present: normocephalic, atraumatic Eye: Present: EOMI, PERRL, normal accommodation, conjunctivae pink ENT: Present: mucous membranes moist - Routine Neck Exam Present: supple, full ROM, trachea midline - Routine Respiratory Exam Present: CTA bilaterally - Routine Cardiovascular Exam Present: RRR, S1, S2 - Routine Abdominal Exam Present: soft, normoactive bowel sounds - Routine Extremities Exam Present: pulses intact - Routine Skin Exam Present: intact, dry - Routine Neurological Exam Present: altered mental status Assessment and Plan - Plan 1. Respiratory insufficiency. 2. Filling defect in the left main stem bronchus. 2nd mucous plugs 2. ? COPD, hx tobacco abuse 3. Leukocytosis. 4. Coag neg staph bacteremia 5. UTI 6. History of subdural hematoma and IPH status post decompressive craniotomy. 7. Previous IVC filter placement in August. 8. Chronic respiratory failure, status post tracheostomy decannulated in October. 9. s/p PEG tube placement 11. History CVA 12. Hypertension. Plan Oxygen PRN maintain sats > 92%. Bronchodilators , CXR 12/03: Mild left base infiltrate s/p bronch with BAL 11/30 showed mucous plugs in trach EMMANUEL/LLL suctioned to clear, no evidence of endobronchial lesions Cytology: Benign bronchial epithelial cells in background of lymphoid cells, histocytes, and neutrophils Follow up on BAL: Coag negative staph bacteremia Will need repeat CT chest in 2-4 weeks from discharge. 11/29 BC: Coag negative staph, Follow up on BC from 11/30-NGTD 11/29 Urine cx: [place], enterococcus Abx per ID: On Ancef and Diflucan,monitor for signs of infection( fever and WBC) . ID is following- Dr. [facility] A strep throat is negative Nasal washing screening for influenza is negative. Monitor neuro status Nutrition support - on bolus tube feeds (Osmolite) D/W Patient's (Bill).
--- NOTE | 2017-12-05 11:41 | P.PNGI ---
Subjective Interval history: Currently no family present patient is resting in the room no facial grimace no obvious nausea vomiting or rectal bleeding Abdomen flat, nondistended Physical Exam Vital signs: Vital Signs 12/04/17 12:00 12/04/17 16:00 12/04/17 16:52 Temperature 97.7 F 98.1 F Pulse Rate 80 87 72 Respiratory Rate 18 16 18 Blood Pressure 144/77 H 141/76 H Pulse Oximetry 97 95 12/04/17 20:00 12/04/17 20:25 12/04/17 23:21 Temperature 97.8 F Pulse Rate 82 100 H 77 Respiratory Rate 14 18 18 Blood Pressure 132/77 Pulse Oximetry 97 96 12/05/17 00:00 12/05/17 03:08 12/05/17 04:00 Temperature 97.7 F 97.7 F Pulse Rate 80 72 77 Respiratory Rate 16 16 14 Blood Pressure 121/68 102/63 Pulse Oximetry 99 98 12/05/17 08:00 Temperature 97.8 F Pulse Rate 85 Respiratory Rate 16 Blood Pressure 131/67 Pulse Oximetry 96 Intake & Output 12/04/17 12/05/17 12/05/17 18:59 06:59 18:59 Intake Total 135 / 135 300 / 300 Output Total 600 / 600 Balance 135 / 135 -300 / -300 Weight 41.6 kg Intake: IV 135 / 135 300 / 300 Protonix Inj 80 MG In NS Inj 100 / 100 100 ML @ 10 mls/hr IV.CONT Q10H JUANITA Rx#:[id number] Protonix Inj 80 MG In NS Inj 35 35 / 35 ML @ 420 mls/hr IV.SIG BOLUS ONE Rx#:[id number] Ancef Inj 2,000 MG In NS Inj 80 100 / 100 200 / 200 ML @ 200 mls/hr IV.SIG Q8H JUANITA Rx#:[id number] Oral 0 / 0 Output: Urine 600 / 600 Other: # Urine Diapers 5 Date of Last Bowel Movement 12/04/17 12/04/17 # Incontinent Bowel Movements 3 - Constitutional cachectic, disheveled - Routine HEENT Exam Head: Present: normocephalic (Pale,) - Routine Respiratory Exam Present: CTA bilaterally - Routine Cardiovascular Exam Present: S1, S2 - Routine Abdominal Exam Present: soft, normoactive bowel sounds (Soft, hypoactive minimal bowel sounds) Results - Labs CBC & Chem 7: 12/05/17 06:17 12/04/17 05:30 Laboratory Results - last 24 hr 12/04/17 12/05/17 11:25 06:17 WBC 12.9 H 8.4 RBC 3.68 L 3.77 L Hgb 11.5 L 11.8 Hct 33.4 L 34.7 L MCV 90.7 91.9 MCH 31.3 31.4 MCHC 34.6 34.2 RDW 14.1 14.1 Plt Count 507 H 496 H MPV 7.7 7.5 Neut % (Auto) 82.9 H 65.0 Lymph % (Auto) 9.6 23.7 [place] % (Auto) 6.6 9.4 H Eos % (Auto) 0.5 1.4 Baso % (Auto) 0.4 0.5 Neut # (Auto) 10.7 H 5.5 Lymph # (Auto) 1.2 2.0 [place] # (Auto) 0.9 0.8 Eos # (Auto) 0.1 0.1 Baso # (Auto) 0.0 0.0 WBC Differential . . Differential Comment Auto diff final Auto diff final Microbiology 11/30/17 16:04 Blood - Peripheral Aerobic Blood Culture - Final No growth in 5 days 11/30/17 16:04 Blood - Peripheral Anaerobic Blood Culture - Final No growth in 5 days 11/30/17 16:00 Blood - Peripheral Aerobic Blood Culture - Final No growth in 5 days 11/30/17 16:00 Blood - Peripheral Anaerobic Blood Culture - Final No growth in 5 days 11/29/17 12:35 Blood - Peripheral Aerobic Blood Culture - Final Staphylococcus aureus Staphylococcus coag negative 11/29/17 12:35 Blood - Peripheral Anaerobic Blood Culture - Final Staphylococcus coag negative - Imaging Impressions Abdomen/Pelvis CT 12/04/17 00:00 CONCLUSION: 1. No acute findings within the abdomen to explain abdominal pain. Increase in subsegmental basilar airspace disease in the lungs since November 29. 2. Mild constipation. Mild ileus. No evidence for obstruction. 3. Postoperative PEG tube placement and inferior vena cava filter placement. 4. Tiny nonobstructing right renal calculus. Mild fatty liver. Abdomen X-Ray 12/05/17 00:00 CONCLUSION: No acute abdominal abnormality is identified. There may be stool within the rectum but otherwise a significant amount of stool is not appreciated within the colon. - Procedures 11/30- bronchoscopy Assessment and Plan - Plan 62-year-old female who came into the hospital on 11/29/2017 with altered mental status and agitation patient was also complaining of lower abdominal pain. On 12/04/2017 patient was noted to have some bright red rectal bleeding after large hard formed bowel movement and large hard formed green bowel movement surrounded with maroon colored blood. Patient does have a history of constipation possibly related to her chronic pain management according to her who is her spokesperson at this time. According to the record patient has significant history of oral cancer, CVA, subdural hematoma trach which is currently been removed and PEG tube placement on 09/04/2017. According to the patient also has history of EtOH usage, bleeding gastric ulcers and history of hemorrhoids. Gastroenterology has been consulted to assist in her care and symptom management. With the record that patient has been on [facility] approximately 2 weeks ago. Currently patient has flat affect, but no obvious facial grimace to any abdominal pain. Patient has no current nausea or vomiting and no known dyspepsia. Abdominal x-rays initially noted possible developing ileus. Maroon, and some bright red rectal bleeding surrounding hard formed stool on History of constipation appears to be acute on chronic, patient showed possible ileus, but this could have been related to constipation, and large stool expelled today on 12/04/2017, history of chronic pain management meds, possibly related to her constipation PEG tube placed on 09/04/2017, last colonoscopy approximately 2010 normal findings according to the History of EtOH abuse, gastric ulcers, CVA, oral squamous cell CA, trach and recent rehab stay Family history Father of liver cancer unknown age Anemia, current hemoglobin 11.5 appears to be due to acute on chronic disease Leukocytosis current WBC count 12.9 unspecified, currently on no steroids Rule out rectal ulcers with CT findings, will continue to evaluate source of lower GI bleeding. 12/05/2017 hemoglobin 11.8, WBC count normal at 8.[address] scan scan findings which showed mild ileus and stool, mild fatty liver. Abdomen soft nontender to light palpation. No family present and patient is encephalopathic and does not speak. Currently n.p.o. No ischemic colitis noted or rectal ulcers. Will monitor for any acute GI bleeding and resolution of mild ileus as well as patient's constipation issues Plan Diet changed to clear liquid via a gastric tube Recheck KUB Pepcid PPI drip, Diflucan as ordered Zofran as needed Aggressive bowel regimen, need daily bowel regimen, Dulcolax suppositories daily Supportive care Patient was seen per myself and Dr. Aragon, note was written on his behalf
[2017-12-05] MEDS: Bisacodyl 10 MG Supp RECTAL SCH (13:05)
--- NOTE | 2017-12-05 13:58 | P.PN ---
Subjective Interval history: Nursing denies any deterioration since last night. No further hematochezia patient herself is largely nonverbal. is present at the bedside today. Physical Exam Vital signs: Vital Signs 12/04/17 16:00 12/04/17 16:52 12/04/17 20:00 Temperature 98.1 F 97.8 F Pulse Rate 87 72 82 Respiratory Rate 16 18 14 Blood Pressure 141/76 H 132/77 Pulse Oximetry 95 97 12/04/17 20:25 12/04/17 23:21 12/05/17 00:00 Temperature 97.7 F Pulse Rate 100 H 77 80 Respiratory Rate 18 18 16 Blood Pressure 121/68 Pulse Oximetry 96 99 12/05/17 03:08 12/05/17 04:00 12/05/17 08:00 Temperature 97.7 F 97.8 F Pulse Rate 72 77 85 Respiratory Rate 16 14 16 Blood Pressure 102/63 131/67 Pulse Oximetry 98 96 Intake & Output 12/04/17 12/05/17 12/05/17 18:59 06:59 18:59 Intake Total 135 / 135 300 / 300 Output Total 600 / 600 Balance 135 / 135 -300 / -300 Weight 41.6 kg Intake: IV 135 / 135 300 / 300 Protonix Inj 80 MG In NS Inj 100 / 100 100 ML @ 10 mls/hr IV.CONT Q10H JUANITA Rx#:[id number] Protonix Inj 80 MG In NS Inj 35 35 / 35 ML @ 420 mls/hr IV.SIG BOLUS ONE Rx#:[id number] Ancef Inj 2,000 MG In NS Inj 80 100 / 100 200 / 200 ML @ 200 mls/hr IV.SIG Q8H JUANITA Rx#:[id number] Oral 0 / 0 Output: Urine 600 / 600 Other: # Urine Diapers 5 Date of Last Bowel Movement 12/04/17 12/04/17 # Incontinent Bowel Movements 3 Narrative: Patient is sleeping comfortably, Abdomen is soft, nontender, nondistended Clear lungs bilaterally, unlabored breathing Results - Labs CBC & Chem 7: 12/05/17 06:17 12/04/17 05:30 Laboratory Results - last 24 hr 12/05/17 06:17 WBC 8.4 RBC 3.77 L Hgb 11.8 Hct 34.7 L MCV 91.9 MCH 31.4 MCHC 34.2 RDW 14.1 Plt Count 496 H MPV 7.5 Neut % (Auto) 65.0 Lymph % (Auto) 23.7 [place] % (Auto) 9.4 H Eos % (Auto) 1.4 Baso % (Auto) 0.5 Neut # (Auto) 5.5 Lymph # (Auto) 2.0 [place] # (Auto) 0.8 Eos # (Auto) 0.1 Baso # (Auto) 0.0 WBC Differential . Differential Comment Auto diff final Microbiology 11/30/17 16:04 Blood - Peripheral Aerobic Blood Culture - Final No growth in 5 days 11/30/17 16:04 Blood - Peripheral Anaerobic Blood Culture - Final No growth in 5 days 11/30/17 16:00 Blood - Peripheral Aerobic Blood Culture - Final No growth in 5 days 11/30/17 16:00 Blood - Peripheral Anaerobic Blood Culture - Final No growth in 5 days 11/29/17 12:35 Blood - Peripheral Aerobic Blood Culture - Final Staphylococcus aureus Staphylococcus coag negative 11/29/17 12:35 Blood - Peripheral Anaerobic Blood Culture - Final Staphylococcus coag negative - Imaging Impressions Abdomen/Pelvis CT 12/04/17 00:00 CONCLUSION: 1. No acute findings within the abdomen to explain abdominal pain. Increase in subsegmental basilar airspace disease in the lungs since November 29. 2. Mild constipation. Mild ileus. No evidence for obstruction. 3. Postoperative PEG tube placement and inferior vena cava filter placement. 4. Tiny nonobstructing right renal calculus. Mild fatty liver. Abdomen X-Ray 12/05/17 00:00 CONCLUSION: No acute abdominal abnormality is identified. There may be stool within the rectum but otherwise a significant amount of stool is not appreciated within the colon. - Procedures 11/30- bronchoscopy Assessment and Plan - Assessment (1) Altered mental status Code(s): R41.82 - Altered mental status, unspecified Status: Acute (2) Lung mass Code(s): R91.8 - Other nonspecific abnormal finding of lung field Status: Acute (3) Acute UTI Code(s): N39.0 - Urinary tract infection, site not specified Status: Acute (4) Hypoxia Code(s): R09.02 - Hypoxemia Status: Acute (5) H/O craniotomy Code(s): Z98.890 - Other specified postprocedural states Status: Chronic (6) History of intracranial hemorrhage Code(s): Z86.79 - Personal history of other diseases of the circulatory system Status: Chronic - Plan This is a 62-year-old CF with 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 Patient is being admitted for IP mgmt of AMS with agitation, UTI, and Hypoxia requiring NC. Per CT Chest, focal filling defect in the distal left mainstem bronchus with opacification of the central segmental branches most prominently of the left lower lobe, endobronchial mass should be excluded. Pulmonary has been consulted to assist with management. Is now status post bronchoscopy with clearing of mucous plugging w/ no mass noted, patient has been weaned down to room air and is on antibiotics streamlined by infectious disease. On 12/04 patient had bright red blood per rectum, GI has been consulted. Bright red blood per rectum -No recurrence since yesterday. Hemoglobin is holding steady. Possibly secondary to substantial constipation. Will stop Protonix drip for now and administer IV or p.o. PPI through PEG feeds. GI following. CT abdomen is unremarkable for any acute findings. Pneumonia Clinically resolved. Antibiotics have been de-escalated now down to just Ancef. CT Chest with opacification of the central segmental branches most prominent in the left lower lung, cannot exclude endobronchial mass Pulmonology - Dr. delatorre ff Sepsis- source- pulmonary + UTI Gram + sepsis bacteremia as well as candiduria and bacteriuria, Leukocytosis - improving Continue ancef and diflucan Elevated LFT's Possible stress reaction secondary to infection Hepatic panel is negative chronic cognitive impairment now at baseline We will not resume trazodone unless needed Hx of Subdural Hematoma and intraparenchymal hemorrhage, status post decompressive craniotomy with expressive aphasia and right hemiparesis Patient is known to Dr. Campbell, CT Head: Prior right-sided temporoparietal craniectomy. Mild diffuse ventriculomegaly slightly out of proportion to degree of atrophy. Clinical correlation for normal pressure hydrocephalus is recommended. Limited evaluation for acute hemorrhage due to recent contrast administration. However, there is no evidence for significant intra or extra-axial blood products. Hx of PEG hold tube feedings in light of GI bleed Per patient uses Osteolite at home, 300mls/4x daily Hx of CVA residual right sided weakness PT Cont. home Baclofen, Amantadine, and Modafinil Hx of Hypertension Blood pressure stable reports that he has not been giving her home meds of Lisinopril and Metoprolol due to low BP's Will resume if needed 10. GERD Cont. Famotidine 11. DVT PPX: SCD's given recent rectal bleed Discharge Planning: anticipate dc to SNF as early as 12/06 once cleared w/ ID.
[2017-12-05] MEDS: Modafinil 200 MG Tablet PO SCH (22:23)
[2017-12-06] MEDS: Pantoprazole Inj 80 MG in Sodium Chlor 0.9% Inj 100 ML IV.CONT SCH ×2 (00:45→03:06)
[2017-12-06] MEDS: Baclofen 10 MG Tablet PO SCH ×6 (02:16→22:21)
[2017-12-06] MEDS: ceFAZolin Inj 2,000 MG in Sodium Chlor 0.9% Inj 80 ML IV.SIG SCH ×3 (04:30→20:34)
[2017-12-06] MEDS: Cetirizine 10 MG/10 ML UDC PO SCH (09:36)
[2017-12-06] MEDS: Fluconazole 100 MG Tablet G-TUBE SCH (09:36)
[2017-12-06] MEDS: Famotidine 20 MG Tablet PO SCH (09:36)
[2017-12-06] MEDS: guaiFENesin 600 MG ER Tablet PO SCH ×2 (09:36→20:37)
[2017-12-06] MEDS: Senna/Docusate Sodium 8.6/50 MG Tablet PO SCH ×2 (09:36→20:37)
[2017-12-06] MEDS: Bisacodyl 10 MG Supp RECTAL SCH (09:37)
[2017-12-06] MEDS: Amantadine Liq 100 MG/10 ML UDC PO SCH ×2 (09:37→20:35)
--- NOTE | 2017-12-06 10:38 | P.DCO ---
Post Hospital Infusion Therapy - Infusion Therapy Location of Infusion Therapy: [facility] Infusion Therapy Order - Patient Information Patient Weight: 42 kg - Administer Medication Cefazolin Dose: 2 grams IV Directions: q 8 hours Start Treatment: 12/06/17 Stop Treatment: 12/28/17 - Additional Information Venous Access: PICC Line Additional Instructions: [x] Peripheral flush and dressing changes per protocol [x] Implanted port and central online tutor: * Implanted port: 10 ml Normal Saline followed by 5 ml Heparin 100 units/ml Heparin flush after each use and monthly to maintain. [] May leave port accessed during therapy. [] May leave peripheral site accessed for duration of therapy. [x] If patient has SOB or respiratory distress, check oxygen saturation. If less than 90% or clinical signs of respiratory distress, administer oxygen at 2 L/min. via nasal cannula and notify physician. [x] Anaphylaxis/Reaction orders: * Stop infusion. * Keep IV line open with saline flush. * Notify physician. * Monitor vital signs every 15 minutes until symptoms resolve. * Check Oxygen saturation; Oxygen at 2 L/min. via nasal cannula if less than 90% or clinical signs of respiratory distress. * Administer diphenhydramine (Benadryl) 25 mg IV STAT, (unless patient has received as pre-med). May repeat once, if necessary. * Solu-Cortef 250 mg IVP over 30-60 seconds, use 100 mg vials for each dissolution. * Epinephrine (1mg/1 ml) 0.3 mg subcutaneously or IVP now with any signs of respiratory distress. * Check with physician for new additional pre-med orders if patient is re- challenged or re-treated. [x] May remove PICC line when treatment complete, after confirming with Physician. [x] If the patient is admitted to the hospital, the ED, or transferred via [facility] , complete transfer form including medication reconciliation order sheet. Weekly Labs: CBC w/diff, Creatinine, LFTs (Hepatic Function Test) - Patient Information Allergies No Known Allergies Allergy (Verified 11/29/17 12:39)
--- NOTE | 2017-12-06 11:38 | P.PNGI ---
Subjective Interval history: Patient resting in the bed no obvious abdominal pain or rectal bleeding, last hemoglobin 11.8 PPI drip <Anaid Bangura - Last Filed: 12/06/17 11:38> Physical Exam Vital signs: Vital Signs 12/05/17 12:00 12/05/17 16:00 12/05/17 19:16 Temperature 98 F 98 F Pulse Rate 73 80 80 Respiratory Rate 16 16 16 Blood Pressure 135/64 137/68 Pulse Oximetry 97 98 97 12/05/17 19:30 12/05/17 20:00 12/05/17 23:30 Temperature 97.9 F Pulse Rate 85 79 77 Respiratory Rate 15 Blood Pressure 158/84 H Pulse Oximetry 94 L 12/05/17 23:33 12/06/17 00:00 12/06/17 04:00 Temperature 98.2 F 97.9 F Pulse Rate 79 78 79 Respiratory Rate 16 14 14 Blood Pressure 155/82 H 150/72 H Pulse Oximetry 95 98 12/06/17 04:10 12/06/17 07:00 12/06/17 07:40 Temperature Pulse Rate 77 70 Respiratory Rate 16 12 Blood Pressure Pulse Oximetry 98 12/06/17 11:00 Temperature Pulse Rate 74 Respiratory Rate 14 Blood Pressure Pulse Oximetry Intake & Output 12/05/17 12/06/17 12/06/17 18:59 06:59 18:59 Intake Total 500 / 500 300 / 300 Output Total 1450 / 1450 Balance -950 / -950 300 / 300 Weight 42 kg 42 kg Intake: IV 200 / 200 300 / 300 Protonix Inj 80 MG In NS Inj 100 / 100 100 / 100 100 ML @ 10 mls/hr IV.CONT Q10H JUANITA Rx#:[id number] Ancef Inj 2,000 MG In NS Inj 80 100 / 100 200 / 200 ML @ 200 mls/hr IV.SIG Q8H JUANITA Rx#:[id number] Oral 0 / 0 Tube Feeding 200 / 200 Tube Irrigant 100 / 100 Output: Urine 1450 / 1450 Other: # Voids 950 # Incontinent Voids 1 Date of Last Bowel Movement 12/04/17 12/04/17 - Constitutional no acute distress, thin, cachectic, disheveled - Routine HEENT Exam ENT: Present: mucous membranes dry (Nonverbal) - Routine Respiratory Exam Present: accessory muscle use (No obvious shortness of breath) - Routine Abdominal Exam Present: soft, normoactive bowel sounds (Flat no distention PEG tube clamped) <Anaid Bangura - Last Filed: 12/06/17 11:38> Vital signs: Vital Signs 12/05/17 16:00 12/05/17 19:16 12/05/17 19:30 Temperature 98 F Pulse Rate 80 80 85 Respiratory Rate 16 16 Blood Pressure 137/68 Pulse Oximetry 98 97 12/05/17 20:00 12/05/17 23:30 12/05/17 23:33 Temperature 97.9 F Pulse Rate 79 77 79 Respiratory Rate 15 16 Blood Pressure 158/84 H Pulse Oximetry 94 L 12/06/17 00:00 12/06/17 04:00 12/06/17 04:10 Temperature 98.2 F 97.9 F Pulse Rate 78 79 77 Respiratory Rate 14 14 16 Blood Pressure 155/82 H 150/72 H Pulse Oximetry 95 98 12/06/17 07:00 12/06/17 07:40 12/06/17 08:00 Temperature 97.7 F Pulse Rate 70 75 Respiratory Rate 12 18 Blood Pressure 156/70 H Pulse Oximetry 98 97 12/06/17 11:00 12/06/17 12:00 Temperature 97.2 F L Pulse Rate 74 95 H Respiratory Rate 14 18 Blood Pressure 156/74 H Pulse Oximetry 96 Intake & Output 12/05/17 12/06/17 12/06/17 18:59 06:59 18:59 Intake Total 500 / 500 300 / 300 100 / 100 Output Total 1450 / 1450 Balance -950 / -950 300 / 300 100 / 100 Weight 42 kg 42 kg Intake: IV 200 / 200 300 / 300 100 / 100 Protonix Inj 80 MG In NS Inj 100 / 100 100 / 100 100 ML @ 10 mls/hr IV.CONT Q10H JUANITA Rx#:[id number] Ancef Inj 2,000 MG In NS Inj 80 100 / 100 200 / 200 100 / 100 ML @ 200 mls/hr IV.SIG Q8H JUANITA Rx#:[id number] Oral 0 / 0 Tube Feeding 200 / 200 Tube Irrigant 100 / 100 Output: Urine 1450 / 1450 Other: # Voids 950 # Incontinent Voids 1 Date of Last Bowel Movement 12/04/17 12/04/17 <Corinne Blair - Last Filed: 12/06/17 14:36> Results - Labs CBC & Chem 7: 12/05/17 06:17 12/04/17 05:30 Microbiology 11/30/17 16:04 Blood - Peripheral Aerobic Blood Culture - Final No growth in 5 days 11/30/17 16:04 Blood - Peripheral Anaerobic Blood Culture - Final No growth in 5 days 11/30/17 16:00 Blood - Peripheral Aerobic Blood Culture - Final No growth in 5 days 11/30/17 16:00 Blood - Peripheral Anaerobic Blood Culture - Final No growth in 5 days - Imaging Impressions Abdomen X-Ray 12/05/17 00:00 CONCLUSION: No acute abdominal abnormality is identified. There may be stool within the rectum but otherwise a significant amount of stool is not appreciated within the colon. - Procedures 11/30- bronchoscopy <Anaid Bangura - Last Filed: 12/06/17 11:38> - Labs CBC & Chem 7: 12/05/17 06:17 12/04/17 05:30 Laboratory Results - last 24 hr 12/06/17 11:29 Urine Color Yellow Urine Clarity Clear Urine pH 6.0 Ur Specific [place] 1.013 Urine Protein Negative Urine Glucose (UA) Negative Urine Ketones 20 Urine Occult Blood Negative Urine Nitrate Negative Urine Bilirubin Negative Urine Urobilinogen Less than 2 Ur Leukocyte Esterase Negative Urine RBC Less than 1 Urine WBC 2 Urine Bacteria Occasional H Hyaline Casts 1 Urine Mucus Few H Micro UA Comment Cath-culture ind Ur Microscopic Review Not Reportable Urine Culture Comments Cath-cult indicated Microbiology 11/30/17 16:04 Blood - Peripheral Aerobic Blood Culture - Final No growth in 5 days 11/30/17 16:04 Blood - Peripheral Anaerobic Blood Culture - Final No growth in 5 days 11/30/17 16:00 Blood - Peripheral Aerobic Blood Culture - Final No growth in 5 days 11/30/17 16:00 Blood - Peripheral Anaerobic Blood Culture - Final No growth in 5 days <Corinne Blair - Last Filed: 12/06/17 14:36> Assessment and Plan - Plan 62-year-old female who came into the hospital on 11/29/2017 with altered mental status and agitation patient was also complaining of lower abdominal pain. On 12/04/2017 patient was noted to have some bright red rectal bleeding after large hard formed bowel movement and large hard formed green bowel movement surrounded with maroon colored blood. Patient does have a history of constipation possibly related to her chronic pain management according to her who is her spokesperson at this time. According to the record patient has significant history of oral cancer, CVA, subdural hematoma trach which is currently been removed and PEG tube placement on 09/04/2017. According to the patient also has history of EtOH usage, bleeding gastric ulcers and history of hemorrhoids. Gastroenterology has been consulted to assist in her care and symptom management. With the record that patient has been on [facility] approximately 2 weeks ago. Currently patient has flat affect, but no obvious facial grimace to any abdominal pain. Patient has no current nausea or vomiting and no known dyspepsia. Abdominal x-rays initially noted possible developing ileus. Maroon, and some bright red rectal bleeding surrounding hard formed stool on History of constipation appears to be acute on chronic, patient showed possible ileus, but this could have been related to constipation, and large stool expelled today on 12/04/2017, history of chronic pain management meds, possibly related to her constipation PEG tube placed on 09/04/2017, last colonoscopy approximately 2010 normal findings according to the History of EtOH abuse, gastric ulcers, CVA, oral squamous cell CA, trach and recent rehab stay Family history Father of liver cancer unknown age Anemia, current hemoglobin 11.5 appears to be due to acute on chronic disease Leukocytosis current WBC count 12.9 unspecified, currently on no steroids Rule out rectal ulcers with CT findings, will continue to evaluate source of lower GI bleeding. 12/05/2017 hemoglobin 11.8, WBC count normal at 8.[address] scan scan findings which showed mild ileus and stool, mild fatty liver. Abdomen soft nontender to light palpation. No family present and patient is encephalopathic and does not speak. Currently n.p.o. No ischemic colitis noted or rectal ulcers. Will monitor for any acute GI bleeding and resolution of mild ileus as well as patient's constipation issues 12/06/2017 patient has had no documented rectal bleeding, since large amount of stools were past 48 hours ago. Transitioned patient to p.o. Protonix. Patient will need daily bowel regimen to prevent any further constipation. Abdominal x-rays did show stool in the colon otherwise unremarkable. Discharge planning is in process with PICC line and IV antibiotics okay from a GI standpoint. Patient's hemoglobin is stable Plan Diet, gastric tube tube feedings may resume Pepcid PPI drip, Diflucan as ordered Zofran as needed Bowel regimen daily Supportive care Patient was seen per myself and Dr. Blair, note was written on his behalf <Anaid Bangura - Last Filed: 12/06/17 11:38> - Plan Patient was seen and examined, agree with above note, doing better, continue current medication and bowel regimen <Corinne Blair - Last Filed: 12/06/17 14:36>
--- NOTE | 2017-12-06 11:54 | P.DS ---
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 After her hospitalization the [place], patient [facility] and was eventually weaned off of the ventilator which was decannulated on 08/2017. Patient presented to the ED today due to increased confusion and agitation per which began this morning. He reports that the patient was complaining of lower abdominal pain. He also mentions that the patient has had nasal congestion, shortness of breath, and a cough for the past 2 days. He has tried [id number] decongestant with no improvement. Of note, the also mentions that the patient was previously on trazodone which made her very lethargic and he started to wean her slowly off of it she has not had any trazodone for the past 4 days. Patient at baseline is minimally verbal but according to her she occasionally will speak a word to him. However he does state that she always understands what he asks her, and is able to answer with a nod or an occasional yes or no. Patient uses only the PEG for feeds due to dysphagia. She requires full assistance with all ADL's, at her baseline she usually is in bed or sitting up in the recliner for a few hours a day. Patient required mechanical ventilation after her IC hemorrhage and is s/ p trach by Dr. Pearson and PEG placement for dysphagia Patient denies recent illness , chills, fever, CP. Other PMHx, Hypertension on lisinopril and metoprolol which her has held due to low blood pressures at home, and GERD. Former Smoker. No previous Hx of COPD, she does not require home O2. DS: Diagnosis - Discharge Diagnosis (1) Altered mental status Status: Acute (2) Lung mass Status: Acute (3) Acute UTI Status: Acute (4) Hypoxia Status: Acute (5) H/O craniotomy Status: Chronic (6) History of intracranial hemorrhage Status: Chronic DS: Summary - Time Spent with Patient Total time spent providing and/or coordinating discharge services: - Quality: VTE Deep Vein Thrombosis/Pulmonary Embolism Present on Admission: No Exam Vital signs: Vital Signs 12/05/17 12:00 12/05/17 16:00 12/05/17 19:16 Temperature 98 F 98 F Pulse Rate 73 80 80 Respiratory Rate 16 16 16 Blood Pressure 135/64 137/68 Pulse Oximetry 97 98 97 12/05/17 19:30 12/05/17 20:00 12/05/17 23:30 Temperature 97.9 F Pulse Rate 85 79 77 Respiratory Rate 15 Blood Pressure 158/84 H Pulse Oximetry 94 L 12/05/17 23:33 12/06/17 00:00 12/06/17 04:00 Temperature 98.2 F 97.9 F Pulse Rate 79 78 79 Respiratory Rate 16 14 14 Blood Pressure 155/82 H 150/72 H Pulse Oximetry 95 98 12/06/17 04:10 12/06/17 07:00 12/06/17 07:40 Temperature Pulse Rate 77 70 Respiratory Rate 16 12 Blood Pressure Pulse Oximetry 98 12/06/17 11:00 Temperature Pulse Rate 74 Respiratory Rate 14 Blood Pressure Pulse Oximetry Intake & Output 12/05/17 12/06/17 12/06/17 18:59 06:59 18:59 Intake Total 500 / 500 300 / 300 Output Total 1450 / 1450 Balance -950 / -950 300 / 300 Weight 42 kg 42 kg Intake: IV 200 / 200 300 / 300 Protonix Inj 80 MG In NS Inj 100 / 100 100 / 100 100 ML @ 10 mls/hr IV.CONT Q10H JUANITA Rx#:[id number] Ancef Inj 2,000 MG In NS Inj 80 100 / 100 200 / 200 ML @ 200 mls/hr IV.SIG Q8H JUANITA Rx#:[id number] Oral 0 / 0 Tube Feeding 200 / 200 Tube Irrigant 100 / 100 Output: Urine 1450 / 1450 Other: # Voids 950 # Incontinent Voids 1 Date of Last Bowel Movement 12/04/17 12/04/17 Results Procedures completed during hospitalization: 11/30- bronchoscopy - Impressions ITS Impressions Head CT 11/29/17 00:00 CONCLUSION: 1. Prior right-sided temporoparietal craniectomy.. 2. Mild diffuse ventriculomegaly slightly out of proportion to degree of atrophy. Clinical correlation for normal pressure hydrocephalus is recommended. 3. Limited evaluation for acute hemorrhage due to recent contrast administration. However, there is no evidence for significant intra or extra- axial blood products. Chest CTA 11/29/17 10:08 CONCLUSION: 1. No CT evidence for pulmonary artery embolism. 2. Focal filling defect in the distal left mainstem bronchus with opacification of the central segmental branches most prominently of the left lower lobe. This is a new finding since previous exam. Endobronchial mass should be excluded. 3. Decreased opacification of the left pulmonary veins extending to the junction of the left atrium. Although nonspecific, this may be related to reactive decreased perfusion of the left lung due to decreased aeration. 4. Minimal bibasilar atelectasis. Chest X-Ray 12/03/17 09:27 CONCLUSION: Mild left base infiltrate Abdomen/Pelvis CT 12/04/17 00:00 CONCLUSION: 1. No acute findings within the abdomen to explain abdominal pain. Increase in subsegmental basilar airspace disease in the lungs since November 29. 2. Mild constipation. Mild ileus. No evidence for obstruction. 3. Postoperative PEG tube placement and inferior vena cava filter placement. 4. Tiny nonobstructing right renal calculus. Mild fatty liver. Abdomen X-Ray 12/05/17 00:00 CONCLUSION: No acute abdominal abnormality is identified. There may be stool within the rectum but otherwise a significant amount of stool is not appreciated within the colon. Discharge Plan - Discharge Disposition Patient Disposition: 03 Discharge to SNF - Discharge Condition Condition: Stable - Discharge Order Discharge Orders: Discharge Order (Routine); Ordered 12/06/17 Ordered By: Navin Coates - Physicians Team Primary Care Provider: UNKNOWN, Attending Provider: Navin Coates Other Providers: Karina Espinoza MD ; Melecio Campbell MD ; Michelle Weir MD ; [facility] ; [facility] ; Corinne Blair MD ; Juan F Lozano MD
[2017-12-06 12:12] LABS: Bacteria,Urine Occasional /hpf; Bilirubin,Urine Negative (Negative); Clarity,Urine Clear (Clear); Color,Urine Yellow (Yellw/Straw); Glucose,Urine (UA) Negative (Negative); Hyaline Casts,Urine 1 /lpf (0-3); Leukocyte Esterase,Urine Negative (Negative); Mucus,Urine Few /lpf (Occasional); Nitrite,Urine Negative (Negative); Specific Gravity,Urine 1.013 (1.002-1.035)
--- NOTE | 2017-12-06 20:29 | P.PN ---
Subjective Interval history: Nonverbal and on O2 2N/C No change neurologically. On PEG Feeds. Physical Exam Vital signs: Vital Signs 12/05/17 23:30 12/05/17 23:33 12/06/17 00:00 Temperature 98.2 F Pulse Rate 77 79 78 Respiratory Rate 16 14 Blood Pressure 155/82 H Pulse Oximetry 95 12/06/17 04:00 12/06/17 04:10 12/06/17 07:00 Temperature 97.9 F Pulse Rate 79 77 70 Respiratory Rate 14 16 12 Blood Pressure 150/72 H Pulse Oximetry 98 12/06/17 07:40 12/06/17 08:00 12/06/17 09:00 Temperature 97.7 F Pulse Rate 75 88 Respiratory Rate 18 Blood Pressure 156/70 H Pulse Oximetry 98 97 12/06/17 11:00 12/06/17 12:00 12/06/17 15:00 Temperature 97.2 F L Pulse Rate 74 99 H 78 Respiratory Rate 14 18 12 Blood Pressure 156/74 H Pulse Oximetry 96 12/06/17 16:00 12/06/17 19:27 Temperature 97.6 F Pulse Rate 82 88 Respiratory Rate 18 20 Blood Pressure 160/74 H Pulse Oximetry 96 96 Intake & Output 12/06/17 12/06/17 12/07/17 06:59 18:59 06:59 Intake Total 300 / 300 1290 / 1290 Balance 300 / 300 1290 / 1290 Weight 42 kg 42 kg Intake: IV 300 / 300 200 / 200 Protonix Inj 80 MG In NS Inj 100 / 100 100 / 100 100 ML @ 10 mls/hr IV.CONT Q10H JUANITA Rx#:[id number] Ancef Inj 2,000 MG In NS Inj 80 200 / 200 100 / 100 ML @ 200 mls/hr IV.SIG Q8H JUANITA Rx#:[id number] Oral 0 / 0 Tube Feeding 990 / 990 Tube Irrigant 100 / 100 Other: # Voids 950 # Incontinent Voids 1 3 # Urine Diapers 3 Date of Last Bowel Movement 12/04/17 12/06/17 # Bowel Movements 2 # Incontinent Bowel Movements 3 Narrative: Patient is sleeping comfortably, GENERAL: SKIN: Warm and dry. HEAD: Atraumatic. Normocephalic. EYES: Pupils equal and round. No scleral icterus. No injection or drainage. ENT: No nasal bleeding or discharge. Mucous membranes pink and moist. NECK: Trachea midline. No JVD. CARDIOVASCULAR: Regular rate and rhythm. RESPIRATORY: No accessory muscle use. Clear to auscultation. Breath sounds equal bilaterally. GASTROINTESTINAL: Abdomen soft, non-tender, nondistended. PEG in place .Hepatic and splenic margins not palpable. MUSCULOSKELETAL: Extremities without clubbing, cyanosis, or edema. No obvious deformities. NEUROLOGICAL: Sleepy, and has Contractures of R arm and weakness with muscle wasting. PSYCHIATRIC: Not assessed. Results - Labs CBC & Chem 7: 12/05/17 06:17 12/04/17 05:30 Laboratory Results - last 24 hr 12/06/17 11:29 Urine Color Yellow Urine Clarity Clear Urine pH 6.0 Ur Specific [place] 1.013 Urine Protein Negative Urine Glucose (UA) Negative Urine Ketones 20 Urine Occult Blood Negative Urine Nitrate Negative Urine Bilirubin Negative Urine Urobilinogen Less than 2 Ur Leukocyte Esterase Negative Urine RBC Less than 1 Urine WBC 2 Urine Bacteria Occasional H Hyaline Casts 1 Urine Mucus Few H Micro UA Comment Cath-culture ind Ur Microscopic Review Not Reportable Urine Culture Comments Cath-cult indicated - Procedures 11/30- bronchoscopy Assessment and Plan - Assessment (1) Acute UTI Code(s): N39.0 - Urinary tract infection, site not specified Status: Acute (2) Hypoxia Code(s): R09.02 - Hypoxemia Status: Acute (3) Altered mental status Code(s): R41.82 - Altered mental status, unspecified Status: Acute (4) Lung mass Code(s): R91.8 - Other nonspecific abnormal finding of lung field Status: Acute (5) H/O craniotomy Code(s): Z98.890 - Other specified postprocedural states Status: Chronic (6) History of intracranial hemorrhage Code(s): Z86.79 - Personal history of other diseases of the circulatory system Status: Chronic - Plan 1. Respiratory insufficiency. 2. Filling defect in the left main stem bronchus. 2nd mucous plugs 2. ? COPD, hx tobacco abuse 3. Leukocytosis. 4. Coag neg staph bacteremia 5. UTI 6. History of subdural hematoma and IPH status post decompressive craniotomy. 7. Previous IVC filter placement in August. 8. Chronic respiratory failure, status post tracheostomy decannulated in October. 9. s/p PEG tube placement 11. History CVA 12. Hypertension. Plan Oxygen PRN maintain sats > 92%. Cont Bronchodilators , CXR 12/03: Mild left base infiltrate s/p bronch with BAL 11/30 showed mucous plugs in trach EMMANUEL/LLL suctioned to clear, no evidence of endobronchial lesions Cytology: Benign bronchial epithelial cells in background of lymphoid cells, histocytes, and neutrophils Follow up on BAL: Coag negative staph bacteremia Will need repeat CT chest in 2-4 weeks from discharge. Abx per ID: On Ancef and Diflucan Monitor neuro status Nutrition support - on bolus tube feeds (Osmolite) To rehab soon.
[2017-12-06] MEDS: Modafinil 200 MG Tablet PO SCH (20:36)
[2017-12-07] MEDS: Baclofen 10 MG Tablet PO SCH ×5 (02:15→17:30)
[2017-12-07] MEDS: ceFAZolin Inj 2,000 MG in Sodium Chlor 0.9% Inj 80 ML IV.SIG SCH ×2 (03:54→13:20)
[2017-12-07] MEDS: Amantadine Liq 100 MG/10 ML UDC PO SCH (09:25)
[2017-12-07] MEDS: Cetirizine 10 MG/10 ML UDC PO SCH (09:25)
[2017-12-07] MEDS: Senna/Docusate Sodium 8.6/50 MG Tablet PO SCH (09:25)
[2017-12-07] MEDS: guaiFENesin 600 MG ER Tablet PO SCH (09:25)
[2017-12-07] MEDS: Fluconazole 100 MG Tablet G-TUBE SCH (09:25)
[2017-12-07] MEDS: Bisacodyl 10 MG Supp RECTAL SCH (09:25)
[2017-12-07 12:09] VITALS: BP 150/64; TEMP 97.5; O2SAT 98
--- NOTE | 2017-12-07 14:27 | P.PNGI ---
Subjective Interval history: Patient resting in bed, no apparent distress noted. <Painting,Rossana - Last Filed: 12/07/17 14:36> Physical Exam Vital signs: Vital Signs 12/06/17 15:00 12/06/17 16:00 12/06/17 19:27 Temperature 97.6 F Pulse Rate 78 82 88 Respiratory Rate 12 18 20 Blood Pressure 160/74 H Pulse Oximetry 96 96 12/06/17 20:00 12/07/17 00:00 12/07/17 04:00 Temperature 98.1 F 98.1 F Pulse Rate 85 92 H 74 Respiratory Rate 18 16 Blood Pressure 159/83 H 122/76 Pulse Oximetry 97 97 12/07/17 04:16 12/07/17 07:29 12/07/17 08:00 Temperature 97.7 F Pulse Rate 100 H 86 84 Respiratory Rate 20 16 18 Blood Pressure 143/79 H Pulse Oximetry 98 97 12/07/17 09:00 12/07/17 11:25 12/07/17 12:00 Temperature 97.5 F L Pulse Rate 81 102 H 109 H Respiratory Rate 16 18 Blood Pressure 150/64 H Pulse Oximetry 98 Intake & Output 12/06/17 12/07/17 12/07/17 18:59 06:59 18:59 Intake Total 1290 / 1290 200 / 200 Output Total 200 / 200 Balance 1290 / 1290 0 / 0 Weight 42 kg 42.6 kg Intake: IV 200 / 200 200 / 200 Protonix Inj 80 MG In NS Inj 100 / 100 100 ML @ 10 mls/hr IV.CONT Q10H JUANITA Rx#:[id number] Ancef Inj 2,000 MG In NS Inj 80 100 / 100 200 / 200 ML @ 200 mls/hr IV.SIG Q8H JUANITA Rx#:[id number] Oral 0 / 0 Tube Feeding 990 / 990 Tube Irrigant 100 / 100 Output: Urine 200 / 200 Other: # Incontinent Voids 3 # Urine Diapers 3 Date of Last Bowel Movement 12/06/17 12/06/17 12/07/17 # Bowel Movements 2 # Incontinent Bowel Movements 3 - Constitutional no acute distress - Routine HEENT Exam Head: Present: normocephalic - Routine Respiratory Exam Absent: accessory muscle use - Routine Abdominal Exam Present: soft, normoactive bowel sounds - Routine Skin Exam Present: dry, warm <Painting,Rossana - Last Filed: 12/07/17 14:36> Vital signs: Vital Signs 12/06/17 19:27 12/06/17 20:00 12/07/17 00:00 Temperature 98.1 F Pulse Rate 88 85 92 H Respiratory Rate 20 18 Blood Pressure 159/83 H Pulse Oximetry 96 97 12/07/17 04:00 12/07/17 04:16 12/07/17 07:29 Temperature 98.1 F Pulse Rate 74 100 H 86 Respiratory Rate 16 20 16 Blood Pressure 122/76 Pulse Oximetry 97 98 12/07/17 08:00 12/07/17 09:00 12/07/17 11:25 Temperature 97.7 F Pulse Rate 84 81 102 H Respiratory Rate 18 16 Blood Pressure 143/79 H Pulse Oximetry 97 12/07/17 12:00 12/07/17 16:09 Temperature 97.5 F L Pulse Rate 105 H 101 H Respiratory Rate 18 19 Blood Pressure 150/64 H Pulse Oximetry 98 Intake & Output 12/06/17 12/07/17 12/07/17 18:59 06:59 18:59 Intake Total 1290 / 1290 200 / 200 100 / 100 Output Total 200 / 200 Balance 1290 / 1290 0 / 0 100 / 100 Weight 42 kg 42.6 kg Intake: IV 200 / 200 200 / 200 100 / 100 Protonix Inj 80 MG In NS Inj 100 / 100 100 ML @ 10 mls/hr IV.CONT Q10H JUANITA Rx#:[id number] Ancef Inj 2,000 MG In NS Inj 80 100 / 100 200 / 200 100 / 100 ML @ 200 mls/hr IV.SIG Q8H JUANITA Rx#:[id number] Oral 0 / 0 Tube Feeding 990 / 990 Tube Irrigant 100 / 100 Output: Urine 200 / 200 Other: # Incontinent Voids 3 # Urine Diapers 3 Date of Last Bowel Movement 12/06/17 12/06/17 12/07/17 # Bowel Movements 2 # Incontinent Bowel Movements 3 <C[place]Corinne rocha - Last Filed: 12/07/17 17:06> Results - Labs CBC & Chem 7: 12/05/17 06:17 12/04/17 05:30 Microbiology 11/30/17 13:16 Bronchial Washings - Left Lower Lobe Fungal Smear - Final No fungal elements seen 11/30/17 13:16 Bronchial Washings - Left Lower Lobe Fungal Culture - Preliminary No growth in 1 week 11/30/17 13:16 Bronchial Washings - Left Lower Lobe Acid Fast Bacilli Smear - Final No acid fast bacilli seen 11/30/17 13:16 Bronchial Washings - Left Lower Lobe Mycobacterial Culture - Preliminary No growth in 1 week 12/06/17 11:29 Catheterized Urine Urine Culture - Preliminary No growth in 24 hours - Procedures 11/30- bronchoscopy <Rossana Painting - Last Filed: 12/07/17 14:36> - Labs CBC & Chem 7: 12/05/17 06:17 12/04/17 05:30 Microbiology 11/30/17 13:16 Bronchial Washings - Left Lower Lobe Fungal Smear - Final No fungal elements seen 11/30/17 13:16 Bronchial Washings - Left Lower Lobe Fungal Culture - Preliminary No growth in 1 week 11/30/17 13:16 Bronchial Washings - Left Lower Lobe Acid Fast Bacilli Smear - Final No acid fast bacilli seen 11/30/17 13:16 Bronchial Washings - Left Lower Lobe Mycobacterial Culture - Preliminary No growth in 1 week 12/06/17 11:29 Catheterized Urine Urine Culture - Preliminary No growth in 24 hours <Corinne Blair - Last Filed: 12/07/17 17:06> Assessment and Plan - Plan 12/05/2017 hemoglobin 11.8, WBC count normal at 8.[address] scan scan findings which showed mild ileus and stool, mild fatty liver. Abdomen soft nontender to light palpation. No family present and patient is encephalopathic and does not speak. Currently n.p.o. No ischemic colitis noted or rectal ulcers. Will monitor for any acute GI bleeding and resolution of mild ileus as well as patient's constipation issues 12/06/2017 patient has had no documented rectal bleeding, since large amount of stools were past 48 hours ago. Transitioned patient to p.o. Protonix. Patient will need daily bowel regimen to prevent any further constipation. Abdominal x-rays did show stool in the colon otherwise unremarkable. Discharge planning is in process with PICC line and IV antibiotics okay from a GI standpoint. Patient's hemoglobin is stable 12/07/2017-no reported rectal bleeding. 2 bowel movements recorded on 2017. No BM yet today, will need to continue bowel regimen. 12/05/2017 hemoglobin 11.8 hematocrit 34.7 Plan -Bolus PEG tube feedings -Continue bowel regimen -Continue PPI -Zofran as needed -Supportive care -Monitor for bleeding -Okay for discharge from GI standpoint This patient has been seen by myself and Dr. Blair and this note is written on his behalf - Attending Attestation Dr. Blair <Rossana Painting - Last Filed: 12/07/17 14:36> - Plan Patient was seen and examined, agree with above note, hemoglobin is stable, continue current medication we will follow-up as an outpatient and will sign off <Corinne Blair - Last Filed: 12/07/17 17:06>
--- NOTE | 2017-12-07 14:35 | P.DIET ---
Nutritional Evaluation Type of nutrition evaluation: follow-up Nutrition consult regarding: Tube Feeding Nutrition screening: MDC (Assist with TF) Subjective Subjective Comments: Pt is minimally verbal. Has PEG for nutrition. No diet order is entered. Call to nursing is pending Objective - Diagnosis UTI, Hypoxia - Objective % IBW: 84 (IBW = 110#) Body Weight Used for Calculations: Actual (41.9 kg) Energy Needs - Lower Range (kCal/kg): 30 Energy Needs - Upper Range (kCal/kg): 35 Lower Limit kCal/kg (kCals): 1,257 Upper Limit kCal/kg (kCals): 1,467 Lower Limit Protein Factor (Grams per Kg): 1.2 Upper Limit Protein Factor (Grams per Kg): 1.5 Lower Protein Needs (Protein): 50 Upper Protein Needs (Protein): 63 Fluid Factor (ml/kg): 35 Estimated Fluid Needs (ml): 1,467 Dietitian Reviewed in Medical Record: Curent medications, Intake & Output, Labs , Medical history, Tube feeding Diet Order: NPO Objective Comments: 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 Pt's TF regimen is known to me from previous rehab admission. Pt receives Osmolite 330 ml bolus 4x/ day to provide 1399 kcals, 58.5 gms protein and 1111 mls of free water. Pt will need an additional 75 mls watre flush q 6 hrs to meet fluid needs. Bolus feeds can be given every 6 hours OR at Bkfst, lunch, dinner and hs. Recommendations: OSMOLITE 1.0 330 ml bolus q [address] following Dietitian to Monitor: Lab values, Intake & Output, Tube feeding tolerance, Weight change, Medical course
[2017-12-07 16:09] VITALS: PULSE 101; RESP 19
--- NOTE | 2017-12-07 16:44 | P.PN ---
Subjective Interval history: Follow up for PNA, sepsis, rectal bleed: pt. awakes to voice, non verbal, following simple commands. Tolerating bolus feeding well. No rectal bleeding. No fever, Unable to obtain ROS Physical Exam Vital signs: Vital Signs 12/06/17 19:27 12/06/17 20:00 12/07/17 00:00 Temperature 98.1 F Pulse Rate 88 85 92 H Respiratory Rate 20 18 Blood Pressure 159/83 H Pulse Oximetry 96 97 12/07/17 04:00 12/07/17 04:16 12/07/17 07:29 Temperature 98.1 F Pulse Rate 74 100 H 86 Respiratory Rate 16 20 16 Blood Pressure 122/76 Pulse Oximetry 97 98 12/07/17 08:00 12/07/17 09:00 12/07/17 11:25 Temperature 97.7 F Pulse Rate 84 81 102 H Respiratory Rate 18 16 Blood Pressure 143/79 H Pulse Oximetry 97 12/07/17 12:00 12/07/17 16:09 Temperature 97.5 F L Pulse Rate 105 H 101 H Respiratory Rate 18 19 Blood Pressure 150/64 H Pulse Oximetry 98 Intake & Output 12/06/17 12/07/17 12/07/17 18:59 06:59 18:59 Intake Total 1290 / 1290 200 / 200 Output Total 200 / 200 Balance 1290 / 1290 0 / 0 Weight 42 kg 42.6 kg Intake: IV 200 / 200 200 / 200 Protonix Inj 80 MG In NS Inj 100 / 100 100 ML @ 10 mls/hr IV.CONT Q10H JUANITA Rx#:[id number] Ancef Inj 2,000 MG In NS Inj 80 100 / 100 200 / 200 ML @ 200 mls/hr IV.SIG Q8H JUANITA Rx#:[id number] Oral 0 / 0 Tube Feeding 990 / 990 Tube Irrigant 100 / 100 Output: Urine 200 / 200 Other: # Incontinent Voids 3 # Urine Diapers 3 Date of Last Bowel Movement 12/06/17 12/06/17 12/07/17 # Bowel Movements 2 # Incontinent Bowel Movements 3 Narrative: GENERAL: chronically ill appearing female, NAD. SKIN: Warm and dry. HEAD: Atraumatic. Normocephalic. EYES: Pupils irregular, chronic. No scleral icterus. No injection or drainage. ENT: No nasal bleeding or discharge. Mucous membranes pink and moist. NECK: Trachea midline. No JVD. CARDIOVASCULAR: Regular rate and rhythm. RESPIRATORY: No accessory muscle use. Clear to auscultation. Breath sounds equal bilaterally. GASTROINTESTINAL: Abdomen soft, non-tender, nondistended. Hepatic and splenic margins not palpable. Peg in place MUSCULOSKELETAL: contracture RUE, right foot drop. Muscle atrophy NEUROLOGICAL: Opens eyes to voice, moves left UE more, squeezed undersigned's hand. Non verbal. RUE contracted. Non verbal. PSYCHIATRIC: unable to assess Results - Labs CBC & Chem 7: 12/05/17 06:17 12/04/17 05:30 Microbiology 11/30/17 13:16 Bronchial Washings - Left Lower Lobe Fungal Smear - Final No fungal elements seen 11/30/17 13:16 Bronchial Washings - Left Lower Lobe Fungal Culture - Preliminary No growth in 1 week 11/30/17 13:16 Bronchial Washings - Left Lower Lobe Acid Fast Bacilli Smear - Final No acid fast bacilli seen 11/30/17 13:16 Bronchial Washings - Left Lower Lobe Mycobacterial Culture - Preliminary No growth in 1 week 12/06/17 11:29 Catheterized Urine Urine Culture - Preliminary No growth in 24 hours - Procedures 11/30- bronchoscopy Assessment and Plan - Assessment (1) Altered mental status Code(s): R41.82 - Altered mental status, unspecified Status: Acute (2) Lung mass Code(s): R91.8 - Other nonspecific abnormal finding of lung field Status: Acute (3) Acute UTI Code(s): N39.0 - Urinary tract infection, site not specified Status: Acute (4) Hypoxia Code(s): R09.02 - Hypoxemia Status: Acute (5) H/O craniotomy Code(s): Z98.890 - Other specified postprocedural states Status: Chronic (6) History of intracranial hemorrhage Code(s): Z86.79 - Personal history of other diseases of the circulatory system Status: Chronic - Plan 62-year-old CF with 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 Patient is being admitted for IP mgmt of AMS with agitation, UTI, and Hypoxia requiring NC. Per CT Chest, focal filling defect in the distal left mainstem bronchus with opacification of the central segmental branches most prominently of the left lower lobe, endobronchial mass should be excluded. Pulmonary has been consulted to assist with management. Is now status post bronchoscopy with clearing of mucous plugging w/ no mass noted, patient has been weaned down to room air and is on antibiotics streamlined by infectious disease. On 12/04 patient had bright red blood per rectum, GI was consulted. Bright red blood per rectum--Possibly secondary to substantial constipation CT abd. unremarkable -no recurrence, HH stable -GI following -continue bolus feeding per peg -continue PPI PO -Continue bowel regimen Pneumonia Clinically resolved. Antibiotics have been de-escalated down to just Ancef. CT Chest with opacification of the central segmental branches most prominent in the left lower lung, cannot exclude endobronchial mass s/p bronch with BAL 11/30 showed mucous plugs in trach EMMANUEL/LLL suctioned to clear, no evidence of endobronchial lesions Bronchial culture + staph aureus -appreciate pulm input-- Dr. Gates following -We will need repeat CT of the chest in 2-4 weeks from this Sepsis- source- pulmonary + UTI Gram + sepsis bacteremia as well as candiduria and bacteriuria -Leukocytosis - improving -Continue Ancef and Diflucan Elevated LFT's Possible stress reaction secondary to infection Hepatic panel is negative -LFTs trending down chronic cognitive impairment now at baseline 0We will not resume trazodone unless needed Hx of Subdural Hematoma and intraparenchymal hemorrhage, status post decompressive craniotomy with expressive aphasia and right hemiparesis Patient is known to Dr. Campbell, CT Head: Prior right-sided temporoparietal craniectomy. Mild diffuse ventriculomegaly slightly out of proportion to degree of atrophy. Clinical correlation for normal pressure hydrocephalus is recommended. Limited evaluation for acute hemorrhage due to recent contrast administration. However, there is no evidence for significant intra or extra-axial blood products. -Monitor neuro check Moderate malnutrition BMI 17.2 -continue bolus feeding Dysphagia hx of peg -continue bolus feeding Hx of CVA residual right sided weakness PT -Cont. home Baclofen, Amantadine, and Modafinil Hx of Hypertension Blood pressure stable reports that he has not been giving her home meds of Lisinopril and Metoprolol due to low BP's -Will resume if needed GERD -Cont. Famotidine DVT PPX: SCD's given recent rectal bleed Discharge today when SNF bed arranged continue IV abx. per ID recommendations cleared by ID and pulmonary Code Status: Full code Discussed Condition With: RN, pt, CM Discharge Planning: Pt. ready for DC to snf, waiting for placement
--- NOTE | 2017-12-07 18:14 | P.PN ---
Subjective Interval history: No new pulmonary issues. On O2 3 L. S/P Bronchoscopy with mucus plugs. Cultures were unremarkable. Follows simple commands. Physical Exam Vital signs: Vital Signs 12/06/17 19:27 12/06/17 20:00 12/07/17 00:00 Temperature 98.1 F Pulse Rate 88 85 92 H Respiratory Rate 20 18 Blood Pressure 159/83 H Pulse Oximetry 96 97 12/07/17 04:00 12/07/17 04:16 12/07/17 07:29 Temperature 98.1 F Pulse Rate 74 100 H 86 Respiratory Rate 16 20 16 Blood Pressure 122/76 Pulse Oximetry 97 98 12/07/17 08:00 12/07/17 09:00 12/07/17 11:25 Temperature 97.7 F Pulse Rate 84 81 102 H Respiratory Rate 18 16 Blood Pressure 143/79 H Pulse Oximetry 97 12/07/17 12:00 12/07/17 16:09 Temperature 97.5 F L Pulse Rate 105 H 101 H Respiratory Rate 18 19 Blood Pressure 150/64 H Pulse Oximetry 98 Intake & Output 12/06/17 12/07/17 12/07/17 18:59 06:59 18:59 Intake Total 1290 / 1290 200 / 200 100 / 100 Output Total 200 / 200 Balance 1290 / 1290 0 / 0 100 / 100 Weight 42 kg 42.6 kg Intake: IV 200 / 200 200 / 200 100 / 100 Protonix Inj 80 MG In NS Inj 100 / 100 100 ML @ 10 mls/hr IV.CONT Q10H JUANITA Rx#:[id number] Ancef Inj 2,000 MG In NS Inj 80 100 / 100 200 / 200 100 / 100 ML @ 200 mls/hr IV.SIG Q8H JUANITA Rx#:[id number] Oral 0 / 0 Tube Feeding 990 / 990 Tube Irrigant 100 / 100 Output: Urine 200 / 200 Other: # Incontinent Voids 3 # Urine Diapers 3 Date of Last Bowel Movement 12/06/17 12/06/17 12/07/17 # Bowel Movements 2 # Incontinent Bowel Movements 3 Narrative: GENERAL: chronically ill appearing female, NAD. SKIN: Warm and dry. HEAD: Atraumatic. Normocephalic. EYES: Pupils irregular, chronic. No scleral icterus. No injection or drainage. ENT: No nasal bleeding or discharge. Mucous membranes pink and moist. NECK: Trachea midline. No JVD. CARDIOVASCULAR: Regular rate and rhythm. RESPIRATORY: No accessory muscle use. Decreased Breath sounds and equal bilaterally. GASTROINTESTINAL: Abdomen soft, non-tender, nondistended. Hepatic and splenic margins not palpable. Peg in place MUSCULOSKELETAL: contracture RUE, right foot drop. Muscle atrophy NEUROLOGICAL: Opens eyes to voice, moves left UE more, Non verbal. RUE contracted. PSYCHIATRIC: unable to assess Results - Labs CBC & Chem 7: 12/05/17 06:17 12/04/17 05:30 Microbiology 11/30/17 13:16 Bronchial Washings - Left Lower Lobe Fungal Smear - Final No fungal elements seen 11/30/17 13:16 Bronchial Washings - Left Lower Lobe Fungal Culture - Preliminary No growth in 1 week 11/30/17 13:16 Bronchial Washings - Left Lower Lobe Acid Fast Bacilli Smear - Final No acid fast bacilli seen 11/30/17 13:16 Bronchial Washings - Left Lower Lobe Mycobacterial Culture - Preliminary No growth in 1 week 12/06/17 11:29 Catheterized Urine Urine Culture - Preliminary No growth in 24 hours - Procedures 11/30- bronchoscopy Assessment and Plan - Assessment (1) Acute UTI Code(s): N39.0 - Urinary tract infection, site not specified Status: Acute (2) Hypoxia Code(s): R09.02 - Hypoxemia Status: Acute (3) Altered mental status Code(s): R41.82 - Altered mental status, unspecified Status: Acute (4) Lung mass Code(s): R91.8 - Other nonspecific abnormal finding of lung field Status: Acute (5) H/O craniotomy Code(s): Z98.890 - Other specified postprocedural states Status: Chronic (6) History of intracranial hemorrhage Code(s): Z86.79 - Personal history of other diseases of the circulatory system Status: Chronic - Plan 1. Respiratory insufficiency. 2. Filling defect in the left main stem bronchus. 2nd mucous plugs 2. ? COPD, hx tobacco abuse 3. Leukocytosis. 4. Coag neg staph bacteremia 5. UTI 6. History of subdural hematoma and IPH status post decompressive craniotomy. 7. Previous IVC filter placement in August. 8. Chronic respiratory failure, status post tracheostomy decannulated in October. 9. s/p PEG tube placement 11. History CVA 12. Hypertension. Plan Oxygen 2 L PRN and maintain sats > 92%. Cont Bronchodilators Duoneb TID. CXR 12/03: Mild left base infiltrate s/p bronch with BAL 11/30 showed mucous plugs in trach EMMANUEL/LLL suctioned to clear, no evidence of endobronchial lesions Cytology: Benign bronchial epithelial cells in background of lymphoid cells, histocytes, and neutrophils Will need repeat CT chest in 2-4 weeks from discharge. Abx per ID: On Ancef and Diflucan Monitor neuro status Nutrition support - on bolus tube feeds (Osmolite) To rehab soon.
== END 2017-12-07 18:08 ==
LOC: NEPE 08:07 → INTOOBSV 11:45 → NEDA 11:45 → N04 13:13
PROVIDERS: ADMIT Family Medicine; ATTEND Family Medicine